=== PATIENT | female | born 1950 | race Caucasian/White ===

== ENCOUNTER 2020-04-22 08:01 | Outpatient (CLI) | payer MEDICARE, SELFPAY | END 2020-04-22 08:02 | disposition home or self-care (01) | LOC: ANHCOVIDVC 08:01 | PROVIDERS: PCP Internal Medicine | DX: Z23 Encounter for immunization (principal) | CPT/HCPCS: 0001A; 91300 ==

== ENCOUNTER 2020-05-13 08:01 | Outpatient (CLI) | payer MEDICARE, SELFPAY | END 2020-05-13 08:02 | disposition home or self-care (01) | LOC: ANHCOVIDVC 08:02 | PROVIDERS: PCP Internal Medicine | DX: Z23 Encounter for immunization (principal) | CPT/HCPCS: 0002A; 91300 ==

== ENCOUNTER 2021-06-15 11:08 | Emergency (ER) | payer MEDICARE, SELFPAY ==
--- NOTE | ~2021-06-15 | XR_ITS ---
EXAMINATION: XR elbow LT min 3V DATE: 06/15/2021 11:39 INDICATION: Generalized left arm pain. TECHNIQUE: Anteroposterior, two oblique and lateral views of the left elbow were obtained. COMPARISON: None. FINDINGS: Alignment is normal. No fracture or joint effusion. Joint spaces are normal. Soft tissues are unremar kable. IMPRESSION: 1. Negative left elbow radiographs. Reviewed, dictated and finalized at location A.
[2021-06-15 11:14] VITALS: BP 173/78; PULSE 60; RESP 16; TEMP 36.8; O2SAT 97
--- NOTE | 2021-06-15 11:28 | ED.GENADULT ---
HPI - General Adult General Chief complaint: Extremity Problem,Nontraumatic Stated complaint: L ARM PAIN Source: patient Mode of arrival: ambulatory Limitations: no limitations History of Present Illness HPI narrative: Pt presents for evaluation of left elbow pain. Pain started night. She woke from sleep with a twinge of pain in the affected area. She states she changed the sheets on her bed earlier that day and is wondering whether this could have caused her pain. She denies precipitated injury otherwise. Wednesday her pain was manageable. She now rates her pain as 7/10 in severity and describes her pain as soreness . Pain is worse with movement. She tried taking a baby aspirin but does not feel this considerably reduced her pain level. She is right hand dominant. No swelling. No paresthesias. No additional complaints or concerns. Related Data Home Medications Medication Instructions Recorded Confirmed aspirin 81 mg tablet,delayed 81 mg PO DAILY 09/16/20 06/15/21 release Allergies Allergy/AdvReac Type Severity Reaction Status Date / Time No Known Allergies Allergy Mild Verified 06/15/21 11:15 Review of Systems Review of Systems: CONSTITUTIONAL: Denies fever, chills, or sweats. EYES: Denies visual changes, redness, or discharge. ENT: Denies rhinorrhea, congestion, sore throat, or otalgia. CARDIOVASCULAR: Denies chest pain, palpitations, or edema. RESPIRATORY: Denies cough or dyspnea. GASTROINTESTINAL: Denies abdominal pain, nausea, vomiting, or diarrhea. GENITOURINARY: Denies dysuria or hematuria. SKIN: Denies rash or itching. MUSCULOSKELETAL: Reports left elbow pain. Denies back pain or myalgia NEUROLOGIC: Denies headache, numbness, dizziness, or weakness. PSYCHIATRIC: Denies anxiety or depression. [facility] Past Medical History Medical History Chronic kidney disease, stage 3 (moderate) Essential (primary) hypertension Hypothyroidism, unspecified Mixed hyperlipidemia Prediabetes Sleep apnea Thyroid disorder Vitamin D deficiency, unspecified Surgical History Surgical History History of cataract surgery Family History Family History Mother Family history of coronary artery disease Father Family history of coronary artery disease Social History Social History Smoking status: Never smoker Second hand tobacco smoke exposure: No Alcohol intake: never Substance use: never Substance use type: does not use 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 HEAD: Normocephalic, atraumatic. EYES: PERRLA and EOMI. ENT: Nares clear, no rhinorrhea or epistaxis. Mucous membranes moist. Oropharynx without tonsillar hypertrophy exudate or other lesions. Bilateral TMs pearly vargas nonbulging NECK: Supple. No adenopathy or masses. No carotid bruits or JVD CHEST: Clear to auscultation. No respiratory distress. No wheezes rales or rhonchi HEART: Regular rate and rhythm. No murmur heard. Normal peripheral pulses. ABDOMEN: Soft, nontender, nondistended, normal active bowel sounds. EXTREMITIES: Normal range of motion of left elbow but movement reproduces pain in left elbow. No edema. Tenderness over left lateral epicondyle. 5/5 hand chief revenue officer strength bilaterally SKIN: Warm, dry, no rash. NEURO: No focal deficits. Alert and oriented x3. PSYCH: Normal mood and affect. Course Course Emergency Course: This is a 70 yr old female here today with complaints of left elbow pain. She is tender over the left lateral
== END 2021-06-15 12:15 | disposition home or self-care (01) ==
PROVIDERS: Emergency Provider Nurse Practitioner; PCP Family Medicine
DX: M77.12 Lateral epicondylitis, left elbow (principal); I12.9 Hypertensive chronic kidney disease with stage 1 through stage 4 chronic kidney disease, or unspecified chronic kidney disease; N18.30 Chronic kidney disease, stage 3 unspecified; E03.9 Hypothyroidism, unspecified; E78.2 Mixed hyperlipidemia; R73.03 Prediabetes; G47.33 Obstructive sleep apnea (adult) (pediatric); Z79.82 Long term (current) use of aspirin; E55.9 Vitamin D deficiency, unspecified
CPT/HCPCS: 73080; 99213; A4565; G0463

== ENCOUNTER 2021-12-31 10:04 | Outpatient (CLI) | payer MEDICARE, SELFPAY ==
[2021-12-31 18:52] LABS: Basophils Absolute Auto 0.1 K/mm3 (0.0-0.1); Basophils Percent Auto 1.1 % (0.2-1.2); Eosinophils Absolute Auto 0.2 K/mm3 (0-0.3); Eosinophils Percent Auto 2.7 % (0-4.4); Hematocrit 36.1 % (37.0-47.0); Hemoglobin 11.6 g/dL (12.0-15.0); Immature Granulocyte Absolute 0.01 K/mm3 (0.00-0.031); Immature Granulocyte Percent A 0.2 % (0-0.5); Lymphocytes Absolute Auto 1.07 K/mm3 (0.9-3.2); Lymphocytes Percent Auto 19.2 % (18.3-44.2); Mean Corpuscular HGB Conc 32.1 g/dl (32-36); Mean Corpuscular Hemoglobin 29.7 pg (26-34); Mean Corpuscular Volume 92.3 fl (80-100); Mean Platelet Volume 10.9 fl (7.4-10.4); Monocytes Absolute Auto 0.6 K/mm3 (0.1-0.6); Monocytes Percent Auto 11.3 % (2.6-8.5); Neutrophils Absolute Auto 3.7 K/mm3 (1.3-6.7); Neutrophils Percent Auto 65.5 % (45.5-73.1); Platelet Count Result 194 k/mm3 (150-375); Red Blood Count 3.91 M/mm3 (4.2-5.4); Red Cell Distribution Width 13.3 % (11.5-14.5); White Blood Count 5.6 K/mm3 (4.5-10.0)
[2021-12-31 19:04] LABS: Hemoglobin A1C 5.7 % (<5.7)
[2021-12-31 19:10] LABS: Alanine Aminotransferase 19 U/L (6-35); Albumin Level 4.4 g/dL (3.5-5.1); Alkaline Phosphatase 74 U/L (38-126); Anion Gap 12 mmol/L (8-16); Aspartate Amino Transferase 25 U/L (14-36); Bilirubin,Total 0.5 mg/dL (0.2-1.3); Blood Urea Nitrogen 21 mg/dL (7-17); Carbon Dioxide 25 mmol/L (22-30); Chloride 102 mmol/L (98-107); Cholesterol 136 mg/dL (0-200); Estimated Glomerular Filt Rate 49; Glucose 104 mg/dL (65-110); HDL Direct 47 mg/dL; Potassium 3.8 mmol/L (3.4-5.0); Sodium 139 mmol/L (137-145); Triglycerides 88 mg/dL (<150); Uric Acid 9.7 mg/dL (2.5-7.5)
[2021-12-31 19:21] LABS: LDL Cholesterol Direct 61 mg/dL
[2021-12-31 19:28] LABS: Vitamin D 25 Hydroxy 55.2 ng/mL
== END 2021-12-31 10:05 | disposition home or self-care (01) ==
LOC: ANHGOSHLAB 10:09
PROVIDERS: PCP Family Medicine; Visit Provider Family Medicine
DX: E78.5 Hyperlipidemia, unspecified (principal); I10 Essential (primary) hypertension; E03.9 Hypothyroidism, unspecified; E55.9 Vitamin D deficiency, unspecified; M10.00 Idiopathic gout, unspecified site; E53.8 Deficiency of other specified B group vitamins; R73.03 Prediabetes
CPT/HCPCS: 36415; 80053; 80061; 82306; 82607; 83036; 84443; 84550; 85025

== ENCOUNTER 2023-12-23 13:40 | Outpatient (CLI) | payer MEDICARE, SELFPAY ==
[2023-12-23 18:38] LABS: Hematocrit 34.9 % (37.0-47.0); Hemoglobin 11.2 g/dL (12.0-15.0); Mean Corpuscular HGB Conc 32.1 g/dl (32-36); Mean Corpuscular Hemoglobin 30.6 pg (26-34); Mean Corpuscular Volume 95.4 fl (80-100); Mean Platelet Volume 10.6 fl (7.4-10.4); Platelet Count Result 212 k/mm3 (150-375); Red Blood Count 3.66 M/mm3 (4.2-5.4); Red Cell Distribution Width 14.2 % (11.5-14.5); White Blood Count 6.4 K/mm3 (4.5-10.0)
[2023-12-23 18:46] LABS: Alanine Aminotransferase 19 U/L (6-35); Alkaline Phosphatase 88 U/L (38-126); Anion Gap 11 mmol/L (4-12); Aspartate Amino Transferase 26 U/L (14-36); Bilirubin,Total 0.7 mg/dL (0.2-1.3); Blood Urea Nitrogen 22 mg/dL (7-17); Calcium 8.9 mg/dL (8.4-10.2); Carbon Dioxide 30 mmol/L (22-30); Chloride 100 mmol/L (98-107); Cholesterol 133 mg/dL (0-200); Estimated Glomerular Filt Rate 54; Glucose 96 mg/dL (65-110); HDL Direct 44 mg/dL; Potassium 3.2 mmol/L (3.4-5.0); Sodium 141 mmol/L (137-145); Triglycerides 80 mg/dL (<150)
[2023-12-23 18:57] LABS: LDL Cholesterol Direct 53 mg/dL
[2023-12-23 19:40] LABS: Vitamin D 25 Hydroxy 50.1 ng/mL
[2023-12-23 22:27] LABS: Hemoglobin A1C 5.7 % (<5.7)
[2023-12-23 23:21] LABS: Free T4 Free Thyroxine Reflex 1.29 ng/dL (0.78-2.19)
[2023-12-24 00:07] LABS: Total Triiodothyronine (T3) 1.26 NG/ML (0.97-1.69)
== END 2023-12-23 13:41 | disposition home or self-care (01) ==
LOC: ANHGOSHLAB 13:41
PROVIDERS: PCP Family Medicine; Visit Provider Family Medicine
DX: E53.8 Deficiency of other specified B group vitamins (principal); E55.9 Vitamin D deficiency, unspecified; E03.9 Hypothyroidism, unspecified; E66.01 Morbid (severe) obesity due to excess calories; E78.2 Mixed hyperlipidemia; R73.03 Prediabetes; I12.9 Hypertensive chronic kidney disease with stage 1 through stage 4 chronic kidney disease, or unspecified chronic kidney disease; N18.30 Chronic kidney disease, stage 3 unspecified
CPT/HCPCS: 36415; 80053; 80061; 82306; 82607; 83036; 84439; 84443; 84480; 85027

== ENCOUNTER 2023-12-28 15:37 | Outpatient (CLI) | payer MEDICARE, SELFPAY ==
[2023-12-28 19:11] LABS: Anion Gap 11 mmol/L (4-12); Blood Urea Nitrogen 22 mg/dL (7-17); Calcium 9.3 mg/dL (8.4-10.2); Carbon Dioxide 30 mmol/L (22-30); Chloride 98 mmol/L (98-107); Estimated Glomerular Filt Rate 49; Glucose 92 mg/dL (65-110); Sodium 139 mmol/L (137-145)
== END 2023-12-28 15:38 | disposition home or self-care (01) ==
LOC: ANHGOSHLAB 15:38
PROVIDERS: PCP Family Medicine; Visit Provider Family Medicine
DX: E87.6 Hypokalemia (principal)
CPT/HCPCS: 36415; 80048

== ENCOUNTER 2024-02-03 13:30 | Outpatient (RCR) | payer MEDICARE, SELFPAY ==
--- NOTE | 2023-11-12 14:43 | STOPEVAL1 ---
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 She then entered [facility] and remained there for about one week where she underwent rehabilitation. She then received three weeks of Home Health therapy focusing on all deficits. Reported Pain Level Pain Score 0: Self Report Assessment ST Clinical Summary COMMUNICATION EVALUATION Patient was seen for a Communication Evaluation after having had a CVA on 09/24/23. She reports that word-finding and speaking have been the most frustrating part of the CVA. She has had prior Speech Therapy through [facility] and through [facility] and reports continued improvement; she is highly motivated to continue to improve. Using the [facility] Adult Language Evaluation and the Coleman Naming Test(BNT), patient exhibited the following impairments: Receptive Language: Most difficulty was observed when given three consecutive body part steps to follow in order; patient repeatedly confused body parts and command response, and command order, and repeatedly asked therapist to repeat the instructions. Expressive Language/Speech: Patient demonstrates that she knows responses to questions and what is expected of her but she either says words incorrectly or chooses wrong words to say when the item is familiar but less common. BNT: 60/64. Speech: Patient exhibits inconsistent sound productions when speaking. For example, she called, February : an-you-are twice and March was pronounced as ay-eb-ri-ar and also as: ay-radha. After she started with these two incorrectly, the other months were produced accurately. Reading Comprehension: Judged to be within normal limits and useful for assisting with intelligible speech. Writing: Writing appears to be similar to speech: word omissions common although she is saying aloud the word she wants to use, she does not always place the smaller function words on paper. Written words are generally spelled correctly. Functional Math: She was asked to find the amounts of two dinners on a menu and add them together; she was two dollars off. When given in writing a start time and an end time and asked to omit one hour of lunch, she was asked to detemine how many hours I worked and was unable to come up with an accurate amount. Plan of Care ST Services Indicated Yes Treatment Frequency and 2x/week x 10 visits Duration These treatments will address the objective and functional deficits as defined above. The patient will be advanced safely and appropriately in order for the patient to progress towards his/her prior level of function. Additional exercises will be introduced and as well as a comprehensive home exercise program upon discharge, if needed, ?to ensure carryover of functional gains achieved in the clinic. This treatment plan has been reviewed and agreement upon by the patient.
--- NOTE | 2023-12-14 13:58 | STOPPROG ---
Assessment and note entered by Lorena Bah, SENIOR PEOPLESOFT DEVELOPER Assessment ST Clinical Summary COMMUNICATION PROGRESS NOTE AND TREATMENT SESSION SUMMARY The patient has been seen for an initial speech therapy session and treatment sessions to address higher-level receptive/expressive language and speech skills. Patient reports that she feels having direct Speech Therapy has helped very much. The patient reports that she feels that trying to express my words in sentences, what I am trying to , in a conserv...conversation, I have to talk slowly, that I have to get the words that I want to state out without having to think: how do I want to state that word. She indicated that she feels that when we address specific words and tasks to address responding to questions/word -finding, it challenges her to thnk through her words and how to express them. She continues to report significant difficulty saying, ventriliquism and this is frustrating to her. Examples today of speech/language errors: --Naming less common but familiar pictured items: Overall 50% acc. independently, immediately (5/10 items), increase to 80% acc (increase of 3/10 items) given her own self-cueing using sentence carrier statement, and for the last two, sound errors/literal paraphasias: myraquid for pyramid and sunnel for funnel. On both occasions, patient required therapist phonemic and visual cue (therapist using lingual/labial placement) in order to correct her productions. --Responding to questions concerning written paragraph stories: ray for vargas, self-cued for vargas. Stated dis-troyed instead of discolored, but corrected. Stated a phone had a built in entering machine instead of built-in answering machine. When asked to state the arcos of the phone, she stated: Seventeen, no, 7, no. 79... dollars and fif...no, nine, no eight, no, 95...95 cents. Patient will continue in direct Speech Therapy twice weekly for an additional 8 visits to continue to address higher-level comprehension and word-finding tasks along with tasks to continue to assist with speech intelligibility. Patient is motivated to continue and supported by a friend who assists with cueing patient and helping her work through incorrect word and sound productions. Goals assessed with new goals added. Plan of Care Interventions Treatment of Speech,Treatment of Language ST Services Indicated Yes Treatment Frequency and 2x 8 visits Duration These treatments will address the objective and functional deficits as defined above. The patient will be advanced safely and appropriately in order for the patient to progress towards his/her prior level of function. Additional exercises will be introduced and as well as a comprehensive home exercise program upon discharge, if needed, ?to ensure carryover of functional gains achieved in the clinic. This treatment plan has been reviewed and agreement upon by the patient.
--- NOTE | 2023-12-16 10:40 | PCSTNOTE ---
The patient treatment was not able to be completed on 12/16/23 due to patient and seasonal delivery driver, Shani, forgetting that her appointment was for 10:00 today even though we had discussed it last session and Shani looked at her calendar while we were on the phone and she stated it was clearly marked for 10:00. Will plan to continue treatment per plan of care by adding this visit to the end of her current allotted visits.
--- NOTE | 2024-01-14 11:20 | PCSTNOTE ---
The patient treatment was not able to be completed on 01/13 due to no show/no call. Patient was responsible to drive herself today rather than coming with airport driver/friend, Shani, and most likely she forgot. Will plan to continue treatment per plan of care. She is expected Wednesday at 12:30.
--- NOTE | 2024-01-14 11:55 | STOPPROG ---
Assessment and note entered by Lorena Bah, STILL TENDER Assessment ST Clinical Summary PROGRESS NOTE AND TREATMENT SUMMARY Patient reported that she feels her speech is not progressing as she had hoped. She reported that she was participating in an auction last night, and she had to think of a dollar amount to bid. She says that the person doing the auction thought she said, eleven, when her intention was seven dollars, and they had to repair the amount. She stated that someone bid me out. Her friend, who accompanies her said that, Most of the time you can speak. Patient admitted that when she is under pressure, she has significantly more difficulty. Both patient and friend report that patient's speech/language is 85% better, that the struggle to get the words out is not as much as it used to be. Patient and friend also expressed that patient lost her a month ago and that on the days she has to deal with her 's paperwork and expenses, etc. the friend and this therapist both notice a reduction in her speech skills. Patient was given short 4 paragraph story and requested to read it aloud. She exhibited difficulty saying 10 multi-syllabic words, improved when therapist wrote out each syllable separately from the next (with a space in between). By end of story, she was able to produce each word accurately after practice. Patient then responded to questions with 90% accuracy based on the story she had read. She will be given additional stories for homework however receptively, she does not require additional assistance with this. Patient's goals were reviewed and progress has been made in all areas including producing multi- syllabic words with correct speech sound precision and sequencing, functional math, and writing cohesive notes. Patient continues to require skilled services to improve speech intelligibility, speech sound precision, functional math for money, and for writing coherent, cohesive notes. She will be seen twice weekly for an additional eight visits. Plan of Care Interventions Treatment of Speech,Treatment of Language ST Services Indicated Yes Treatment Frequency and 2xweekly/8 visits Duration These treatments will address the objective and functional deficits as defined above. The patient will be advanced safely and appropriately in order for the patient to progress towards his/her prior level of function. Additional exercises will be introduced and as well as a comprehensive home exercise program upon discharge, if needed, ?to ensure carryover of functional gains achieved in the clinic. This treatment plan has been reviewed and agreement upon by the patient.
--- NOTE | 2024-01-31 14:58 | PCSTNOTE ---
Patient did not show up for scheduled appointment this date or call to cancel. Therapist will contact patient.
--- NOTE | 2024-01-31 15:17 | PCSTNOTE ---
Patient had cancelled today's visit ahead of time but she was not removed from the schedule as expected. She did not miss this visit on purpose.
--- NOTE | 2024-02-07 13:08 | PCSTNOTE ---
Patient's V number is being discontinued. Continue chart with new V#[id number].
== END 2024-02-07 11:17 | disposition home or self-care (01) ==
LOC: ANHST 13:30
PROVIDERS: PCP Family Medicine; Visit Provider Family Medicine
DX: I69.320 Aphasia following cerebral infarction (principal)
CPT/HCPCS: 92507; 92523

== ENCOUNTER 2024-04-10 10:14 | Outpatient (CLI) | payer MEDICARE, SELFPAY ==
--- OUTSIDE RECORDS SUMMARY | 2024-04-10 13:10 | XMS_ITS | Referral Summary ---
Author Organization [facility] Address [address] [place] [address] Care Team Providers Care Cad Cam Programmer Name Role Phone Mono Felipe MD Primary Care Provider Source Comments [facility],non-owned Affiliates and Associated Physician Practices is amultiple site organization consisting of ambulatory clinics and hospital sitesin [place], [place] and [place]. This disclosure is being madepursuant to the Care Everywhere program and may not contain all information available regarding this patient. Last updated 17.[facility] Encounters Date Type Department Care Team Description 04/06/2024 1:10 AM HEAD HOST/HOSTESS Clinical Support [facility] - Cardiology [address] [facility], [address] [phone] Acute ischemic left MCA stroke (HCC) 03/02/2024 1:10 AM HEAD HOST/HOSTESS Clinical Support [facility] [address] [facility], [address] [phone] Acute ischemic left MCA stroke (HCC) 01/27/2024 1:10 AM HEAD HOST/HOSTESS Clinical Support [facility] Cardiology [address] [facility], [address] [phone] Acute ischemic left MCA stroke (HCC) from Last 3 Months Allergies No known active allergies Medications * Be aware that medications may not be up to date on this document. Alwaysverify current medications with the patient. Medication Sig Dispensed Refills Start Date End Date Status cyanocobalamin (Vitamin B-12) 1000 MCG tablet Take 1 (one) tablet by mouth once daily Active escitalopram (Lexapro) 5 MG tablet Take 1 (one) tablet by mouth once daily Active Vitamin D3 (Cholecalciferol) 50 MCG (2000 UT) capsule Take 1 (one) capsule by mouth once daily Active levothyroxine (Synthroid) 50 MCG tablet Take 1 (one) tablet by mouth daily before breakfast Active allopurinol (Zyloprim) 300 MG tablet Take 1 (one) tablet by mouth once daily Active amLODIPine (Norvasc) 10 MG tablet Take 1 (one) tablet by mouth once daily Active olmesartan-hydroCHL OROthiazide (Benicar HCT) 40-25 MG tablet Take 1 (one) tablet by mouth once daily Active pantoprazole EC (Protonix) 20 MG tablet Take 1 (one) tablet by mouth once daily Active carvedilol (Coreg) 25 MG tablet Take 1 (one) tablet by mouth 2 times daily with morning and evening meal Active aspirin (Aspirin) 81 MG chew tablet CHEW AND SWALLOW 1 TABLET BY MOUTH ONCE DAILY 60 tablet 09/30/2023 09/29/2024 Active atorvastatin (Lipitor) 40 MG tablet TAKE ONE TABLET BY MOUTH AT BEDTIME 60 tablet 09/30/2023 09/29/2024 Active losartan (Cozaar) 100 MG tablet TAKE ONE TABLET BY MOUTH ONCE DAILY 60 tablet 09/30/2023 09/29/2024 Active sulfamethoxazole-tr imethoprim (Bactrim DS; Septra DS) 800-160 MG tablet TAKE ONE TABLET BY MOUTH EVERY 12 HOURS FOR 1 DAY 2 tablet 09/30/2023 09/29/2024 Active sennosides (Senokot) 8.6 MG tablet TAKE ONE TABLET BY MOUTH ONCE DAILY 30 tablet 09/30/2023 09/29/2024 Active polyethylene glycol 3350 (Miralax) 17 GM/SCOOP powder MIX AND TAKE 1 CAPFUL (17 GM) BY MOUTH ONCE DAILY 238 g 2 09/30/2023 09/29/2024 Active Active Problems Problem Noted Date Diagnosed Date Essential hypertension 12/06/2023 Mixed hyperlipidemia 12/06/2023 Acute ischemic left MCA stroke 09/24/2023 Transient alteration of awareness 09/24/2023 Aphasia 09/24/2023 Social History Tobacco Use Types Packs/Day Years Used Date Smoking Tobacco: Never Smokeless Tobacco: Never Tobacco Cessation:Counseling Given: Not Answered AUDIT-C Answer Date Recorded Q1: How often do you have a drink containing alcohol? Never 09/25/2023 Q2: How many drinks containi ng alcohol do you have on a typical day when you are drinking? Patient does not drink Q3: How often do you have si x or more drinks on one occasion? Never 09/25/2023 Overall Financial Resource Strain (CARDIA) Answe r Date Recorded How hard is it for you to pa y for the very basics like food, housing, medical care, and heating? Not very hard 09/27/2023 PHQ-2 Answer Date Recorded Patient Health Questionnaire-2 Score 0 09/30/2023 [facility] - Occupational Stress Questionnaire Answer Date Recorded Do you feel stress - tense, restless, nervous, or anxious, or unable to sleep at night because your mind is troubled all the time - these days? Not at all 09/27/2023 Hunger Vital Sign Answer Date Recorded Within the past 12 months, y ou worried that your food would run out before you got the money to buy more. Never true 09/27/19 24 Within the past 12 months, t he food you bought just didn't last and you didn't have money to get more. Never true 09/27/2023 PRAPARE - Transportation Answer Date Re corded In the past 12 months, has l ack of transportation kept you from medical appointments or from getting medications? No 06/2023 In the past 12 months, has l ack of transportation kept you from meetings, work, or from getting things needed for daily living? No 09/27/2023 Housing Stability Vital Sign Answer Ron e Recorded In the last 12 months, was t here a time when you were not able to pay the mortgage or rent on time? No 09/27/2023 In the last 12 months, how many places have you lived? 1 09/27/2023 In the last 12 months, was t here a time when you did not have a steady place to sleep or slept in a [facility] (including now)? No 09/27/2023 Sex and Gender Information Value Date Recorded Sex Assigned at Not on file Gender Identity Not on file Sexual Orientation Not on file Last Filed Vital Signs Vital Sign Reading Time Taken Comments Blood Pressure 128/64 12/06/2023 1:46 PM CDT Pulse 60 12/06/2023 1:46 PM CDT Temperature 36.7 C (98.1 F) 09/30/2023 12:07 PM CDT Respiratory Rate 14 11/11/2023 10:01 AM CDT Oxygen Saturation 97% 12/06/2023 1:46 PM CDT Inhaled Oxygen Concentration - - Weight 147.4 kg (325 lb) 12/06/2023 1:46 PM CDT Height 167.6 cm (5' 6 ) 12/06/2023 1:46 PM CDT Body Mass Index 52.46 12/06/2023 1:46 PM CDT Functional Status Functional Status Response Date of Assess ment Is person deaf or have serious hearing difficult y? No 09/25/2023 Is person blind or have serious difficulty seein g? No 09/25/2023 Does person have serious dif ficulty walking/climbing stairs? Yes 09/25/2023 Does person have difficulty dressing/bathing? Ye s 09/25/2023 Does person have difficulty doing errands alone? Yes 09/25/2023 Cognitive Status Response Date of Assessm ent Does person have difficulty concentrating/remembering/making decisions? Yes 09/25/2023 Plan of Treatment Upcoming Encounters Date Type Department Care Team (Late st Contact Info) Description 05/10/2024 10:00 AM CDT Office Visit [facility] - Neurology [address] [facility], [place] [address] Isamar Roberts PA-C [address] [facility] [address] [place] [address] 05/11/2024 1:10 AM CDT Clinical Support [facility] - Cardiology [address] [facility], [address] [phone] 06/15/2024 1:10 AM CDT Clinical Support [facility] - Cardiology [address] [facility], [address] [phone] 07/20/2024 1:10 AM CDT Clinical Support [facility] - Cardiology [address] [facility], [address] [address] 08/24/2024 1:10 AM CDT Clinical Support [facility] - Cardiology [address], [place] [address] [place] [phone] 09/28/2024 1:10 AM CDT Clinical Support [facility] - Cardiology [address], [place] [address] [place] [phone] 11/02/2024 1:10 AM CDT Clinical Support [facility] - Cardiology [address], [place] [address] [place] [phone] Medical Devices Implanted Type Area Cafeteria Attendant Device Identifier Shelf Expiration Date Model / Serial / Lot Sys Crd Mntr Rvl Linq Ii - [id number] Implanted:Qty: 1 on 09/29/2023 by Kathy Richmond MD at [facility] [id number] 02/09/2025 [id number] SYS / [id number] / [id number] 3 Description:Loop Implant R-wave: 0.45 Procedures Procedure Name Priority Date/Time Associated Diagnosis Comments CARDIAC PROCEDURE ORDER 04/04/2024 [place] ILR DEVICE INTERROGAT REMOTE Routine 03/12/2024 9:14 AM HEAD HOST/HOSTESS Acute ischemic left MCA stroke (HCC) [place] ILR DEVICE INTERROGAT REMOTE Routine 02/13/2024 9:15 AM HEAD HOST/HOSTESS Acute ischemic left MCA stroke (HCC) CARDIAC PROCEDURE ORDER 01/25/2024 from Last 3 Months Results * CARDIAC PROCEDURE ORDER (04/04/2024) Only the most recent of2 resultswithin the time period is included. Narrative 04/04/2024 Ordered by an unspecified provider. Scanned Document CARDIAC SERVICES ORD ERABLES * [place] ILR DEVICE INTERROGAT REMOTE (03/12/2024 9:14 AM HEAD HOST/HOSTESS) Braulio Regalado MD - 03/12/2024 9:14 AM HEAD HOST/HOSTESS Braulio Saxena MD 03/12/2024 9:14 AM Dear Gudelia Carlton, I reviewed the remote interrogation of your loop recorder. Your device's sensing is appropriate and stable. During this most recent monitored period ending on 02/29/2024 your atrial fibrillation/tachycardia burden was 0% and you had no significant arrhythmias. Device function is normal, no programming changes are required, and no medications will need to be changed. Please call our offices if you have any further questions. Sincerely, Braulio Saxena 03/12/2024 Braulio Saxena MD PROCEDURE/MINOR SURG ICAL ORDERABLES * [place] ILR DEVICE INTERROGAT REMOTE (02/13/2024 9:15 AM HEAD HOST/HOSTESS) Braulio Regalado MD - 02/13/2024 9:15 AM HEAD HOST/HOSTESS Braulio Saxena MD 02/13/2024 9:15 AM Dear Gudelia Carlton, I reviewed the remote interrogation of your loop recorder. Your device's sensing is appropriate and stable. During this most recent monitored period ending on 01/25/2024 your atrial fibrillation/tachycardia burden was 0% and you had no significant arrhythmias. Device function is normal, no programming changes are required, and no medications will need to be changed. Please call our offices if you have any further questions. Sincerely, Braulio Cha Mar 02/13/2024 Braulio Saxena MD PROCEDURE/MINOR SURG ICAL ORDERABLES from Last 3 Months Advance Directives * Full Code (Latest Code Status on File) Date Activated Date Inactivated Comments 09/24/2023 8:34 PM 09/30/2023 4:13 PM Care Teams Cad Cam Programmer Relationship Specialty Start Date End Date Mono Felipe MD [facility] [facility] [place] [address] [place] [phone] PCP - General Family Medicine 11/10/23
--- OUTSIDE RECORDS SUMMARY | 2024-04-10 13:10 | XMS_ITS | Clinical Summary ---
Author Organization [facility] Address [address] [address] Care Team Providers Care General Education Professor Name Role Phone Mono Felipe MD Primary Care Provider Source Comments [facility],non-owned Affiliates and Associated Physician Practices is amultiple site organization consisting of ambulatory clinics and hospital sitesin [place], [place], [place] and [place]. This disclosure is being madepursuant to the Care Everywhere program and may not contain all information available regarding this patient. Last updated 17.[employer] [facility] Allergies No known active allergies Medications * [...] Transient alteration of awareness 09/24/2023 Aphasia 09/24/2023 Encounters Date Type Department Care Team Description 04/06/2024 1:10 AM IT APPLICATION ADMINISTRATOR Clinical Support [facility] - Cardiology [address] [place] [phone] Acute ischemic left MCA stroke (HCC) 03/02/2024 1:10 AM IT APPLICATION ADMINISTRATOR Clinical Support [facility] - Cardiology [address] [place] [phone] Acute ischemic left MCA stroke (HCC) 01/27/2024 1:10 AM [facility] Clinical Support [facility] - Cardiology [address] [place] [phone] Acute ischemic left MCA stroke (HCC) from Last 3 Months Social History Tobacco Use Types Packs/Day Years [...] Recorded Patient Health Questionnaire-2 Score 0 09/30/2023 [facility] Occup[facility] Health - Occupational Stress [...] place to sleep or slept in a [place] [facility] [place] (including now)? No 09/27/2023 Sex and Gender [...] Mass Index 52.46 12/06/2023 1:46 PM CDT Plan of Treatment Upcoming Encounters Date Type Department Care Team (Late st Contact Info) Description 05/10/2024 10:00 AM CDT Office Visit [facility] - Neurology [address] [facility], [place] [address] Isamar Roberts PA-C [address] [facility] [address] [place] [address] 05/11/2024 1:10 AM CDT Clinical Support [facility] - Cardiology [address], [address] [phone] 06/15/2024 1:10 AM CDT Clinical Support [facility] - Cardiology [address], [address] [phone] 07/20/2024 1:10 AM CDT Clinical Support [facility] - Cardiology [address], [address] [phone] 08/24/2024 1:10 AM CDT Clinical Support [facility] - Cardiology [address], [address] [phone] 09/28/2024 1:10 AM CDT Clinical Support [facility] - Cardiology [address], [address] [phone] 11/02/2024 1:10 AM CDT Clinical Support [facility] - Cardiology [address], [address] [place] [address] Health Maintenance Due Date Last Done Comments BONE DENSITY TESTING 1950 COLOGUARD (AGES 45-75) - COL ON CA SCREENING 1949 COLON MONITORING 1949 COLONOSCOPY - COLON CA SCREENING 1949 CT COLONOGRAPHY - COLON CA SCREENING 1949 Colorectal Cancer Screening 1949 FIT - COLON CA SCREENING 1949 FLEX SIG - COLON CA SCREENING 1949 MAMMOGRAM 1949 HEPATITIS C SCREENING 11/08/1967 DTAP/TDAP/TD VACCINES (1 - Tdap) 1968 PNEUMOCOCCAL VACCINE 50+ (1 of 1 - PCV) 11/13/1999 ZOSTER VACCINE (1 of 2) 11/13/1999 Respiratory Syncytial Virus (RSV) Vaccine Pt: or over 60 yrs (1 - Risk 60-74 years 1-dose series) 2009 COVID-19 VACCINE (2023-2 5 season) 2023 INFLUENZA VACCINE (#1) 2023 DEPRESSION SCREENING 02/23/2024 09/24/2023 MEDICARE AWV CALENDAR YEAR 2024 HEPATITIS B VACCINE Aged Out No longe r eligible based on patient's age to complete this topic HIB VACCINE Aged Out No longer eligi ble based on patient's age to complete this topic HPV VACCINE Aged Out No longer eligi ble based on patient's age to complete this topic MENINGOCOCCAL (Group B) VACCINE Aged Out No longer eligible based on patient's age to complete this topic MENINGOCOCCAL VACCINE Aged Out No dana sandra eligible based on patient's age to complete this topic Medical Devices Implanted Type Area Mold Stripper Device Identifier Shelf Expiration Date Model / Serial / Lot Sys Crd Mntr Rvl Linq Ii - [id number] Implanted:Qty: 1 on 09/29/2023 by Kathy Richmond MD at [facility] [id number] 02/09/2025 LNQ22 SYS / [id number] / [id number] 3 Description:Loop Implant R-wave: 0.45 Procedures Procedure Name Priority Date/Time Associated Diagnosis Comments CARDIAC PROCEDURE ORDER 04/04/2024 [place] ILR DEVICE INTERROGAT REMOTE Routine 03/12/2024 9:14 AM IT APPLICATION ADMINISTRATOR Acute ischemic left MCA stroke (HCC) [place] ILR DEVICE INTERROGAT REMOTE Routine 02/13/2024 9:15 AM IT APPLICATION ADMINISTRATOR Acute ischemic left MCA stroke (HCC) CARDIAC PROCEDURE ORDER 01/25/2024 from Last 3 Months Results * CARDIAC PROCEDURE ORDER (04/04/2024) Only the most recent of2 resultswithin the time period is included. Narrative 04/04/2024 Ordered by an unspecified provider. Scanned Document CARDIAC SERVICES ORD ERABLES * [place] ILR DEVICE INTERROGAT REMOTE (03/12/2024 9:14 AM IT APPLICATION ADMINISTRATOR) Narrative Braulio Saxena MD - 03/12/2024 9:14 AM IT APPLICATION ADMINISTRATOR Braulio Saxena MD 03/12/2024 9:14 AM Dear [...] Saxena MD PROCEDURE/MINOR SURG ICAL ORDERABLES * [place] ILR DEVICE INTERROGAT REMOTE (02/13/2024 9:15 AM IT APPLICATION ADMINISTRATOR) Narrative Braulio Saxena MD - 02/13/2024 9:15 AM IT APPLICATION ADMINISTRATOR Braulio Saxena MD 02/13/2024 9:15 AM Dear [...] have any further questions. Sincerely, Braulio Saxena 02/13/2024 Braulio Saxena MD PROCEDURE/MINOR SURG ICAL ORDERABLES from Last 3 Months Advance Directives * Full Code (Latest Code Status on File) Date Activated Date Inactivated Comments 09/24/2023 8:34 PM 09/30/2023 4:13 PM Care Teams General Education Professor Relationship Specialty Start Date End Date Mono Felipe MD [address] [facility] [address] [place] [address] PCP - General Family Medicine 11/10/23
--- OUTSIDE RECORDS SUMMARY | 2024-04-10 13:10 | XMS_ITS | Clinical Summary ---
Author Organization [facility] Address [address] [place] [address] Care Team Providers Care P D Driver Name Role Phone Unavailable Primary Care Provider Unavailabl e Social History Tobacco Use Types Packs/Day Years Used Date Smoking Tobacco: Never Assessed Comments Unknown Sex and Gender Information Value Date Recorded Sex Assigned at Not on file Legal Sex Female 7:54 PM CDT Gender Identity Not on file Sexual Orientation Not on file Plan of Treatment Health Maintenance Due Date Last Done Comments Colorectal Cancer Screening Colonoscopy (10 Years) 1949 Hepatitis C 11/13/1967 DTaP, Tdap and Td Vaccines ( 1 - Tdap) 1968 Mammogram Screening 1989 Zoster Vaccines (1 of 2) 11/13/1999 Dexa Scan (General) 2014 Pneumococcal Vaccine: 65+ Ye ars (1 of 1 - PCV) 2014 COVID-19 Vaccine (2023-2 5 season) 2023 Influenza Adult (#1) 2023 RSV Immunization or 60+ Years (1 - 1-dose 75+ series) 2024 Meningococcal B Vaccine Aged Out No l onger eligible based on patient's age to complete this topic Meningococcal Vaccine Aged Out No dana sandra eligible based on patient's age to complete this topic RSV Immunizations Under 20 Months Aged Out No longer eligible based on patient's age to complete this topic
--- OUTSIDE RECORDS SUMMARY | 2024-04-10 13:10 | XMS_ITS | Clinical Summary ---
Author Organization [facility] Address [address] [facility] [facility] [address] [place]: Monica Prelude ADT [place] [address] Care Team Providers Care Drafter Civil Name Role Phone Unavailable Primary Care Provider Unavailabl e Medications methylPREDNISol one (MEDROL DOSPACK) 4 mg Tablets, Dose Pack TAKE DIRECTED ON PACKAGE. TAKE WITH FOOD. 21 Tablet 10/06/2021 9:26 AM CDT 2 Active allopurinoL (ZYLOPRIM) 300 mg tablet Take 1 Tablet (300 mg) by mouth daily. 90 Tablet 1 09/23/2022 5:08 PM CDT 3 Active cholecalciferol , Vitamin D3, 50 mcg (2,000 unit) Tablet Take 1 Tablet (2,000 Units) by mouth daily. 90 Tablet 2 04/23/2023 2:25 PM CONTENT ASSISTANT 3 Active carvediloL (COREG) 25 mg tablet Take 0.5 Tablets (12.5 mg) by mouth every 12 hours with a meal/food. 90 Tablet 1 04/23/2023 2:25 PM CONTENT ASSISTANT 3 Active levothyroxine 50 mcg tablet Take 1 Tablet (50 mcg) by mouth daily. 90 Tablet 1 04/23/2023 2:25 PM CONTENT ASSISTANT 3 Active ezetimibe-simva statin (VYTORIN) 10-40 mg tablet Take 1 Tablet by mouth daily. 30 Tablet 04/23/2023 2:25 PM CONTENT ASSISTANT 3 Active omeprazole (PriLOSEC) 40 mg Capsule, Delayed Release(E.C.) Take 1 Capsule (40 mg) by mouth daily in the morning, 30 minutes before morning meal 90 Capsule 4 07/30/2023 3:16 PM CDT 4 Active carvediloL (COREG) 25 mg tablet Take 0.5 Tablets (12.5 mg) by mouth every 12 hours. Must administer with meal/food 90 Tablet 1 11/30/2023 12:18 PM CDT 4 Active cholecalciferol , Vitamin D3, 50 mcg (2,000 unit) Tablet Take 1 Tablet (2,000 Units) by mouth daily. 90 Tablet 2 02/24/2024 4:32 PM CONTENT ASSISTANT 4 Active cyanocobalamin (VITAMIN B-12) 1,000 mcg Tablet, Sublingual Dissolve 1 tablet by mouth once daily 90 Tablet 1 4 Active ezetimibe-simva statin (VYTORIN) 10-40 mg tablet Take 1 Tablet by mouth daily. Due for an appointment. Last refill until seen. 30 Tablet 07/23/2023 3:34 PM CDT 4 Active levothyroxine 50 mcg tablet Take 1 Tablet (50 mcg) by mouth daily. 90 Tablet 1 12/31/2023 1:00 PM CONTENT ASSISTANT 4 Active aspirin (LEILA CHEWABLE) 81 mg Tablet, Chewable Take 1 Tablet (81 mg) by mouth daily. 30 Tablet 10/08/2023 3:51 PM CDT 4 Active atorvastatin (LIPITOR) 40 mg tablet Take 1 Tablet (40 mg) by mouth daily at bedtime. 30 Tablet 4 Active losartan (COZAAR) 100 mg tablet Take 1 Tablet (100 mg) by mouth daily. 30 Tablet 4 Active sennosides (SENOKOT) 8.6 mg tablet Take 1 Tablet (8.6 mg) by mouth daily. 30 Tablet 4 Active mirtazapine (REMERON) 15 mg tablet Take 0.5 Tablets (7.5 mg) by mouth daily at bedtime. 15 Tablet 10/08/2023 3:51 PM CDT 4 Active pantoprazole (PROTONIX) 40 mg Tablet, Delayed Release (E.C.) Take 1 Tablet (40 mg) by mouth daily. 30 Tablet 10/08/2023 3:51 PM CDT 4 Active polyethylene glycol (MIRALAX) 17 gram Powder in Packet Drink 1 Packet (17 Grams) by mouth daily as directed 30 Each 4 Active amLODIPine (NORVASC) 10 mg tablet Take 1 Tablet (10 mg) by mouth daily. 90 Tablet 1 01/28/2024 3:25 PM CONTENT ASSISTANT 4 Active olmesartan-hydr oCHLOROthiazide (BENICAR-HCT) 40-25 mg tablet Take 1 Tablet by mouth daily. 90 Tablet 1 03/21/2024 4:54 PM CONTENT ASSISTANT 4 Active carvediloL (COREG) 12.5 mg tablet Take one tablet (12.5 mg) orally every 12 hours; must administer with a meal/food 180 Tablet 2 02/24/2024 4:32 PM CONTENT ASSISTANT 4 Active escitalopram oxalate (LEXAPRO) 5 mg tablet Take one tablet (5 mg) orally daily 90 Tablet 1 4 Active potassium chloride (KLOR-CON) 10 mEq Extended Release tablet Take 1 Tablet (10 mEq) by mouth daily. 90 Tablet 12/30/2023 3:32 PM CONTENT ASSISTANT 4 Active pantoprazole (PROTONIX) 20 mg Tablet, Delayed Release (E.C.) Take 1 Tablet (20 mg) by mouth daily in the morning. 90 Tablet 1 01/28/2024 3:25 PM CONTENT ASSISTANT 4 Active atorvastatin (LIPITOR) 40 mg tablet Take 1 Tablet (40 mg) by mouth daily at bedtime. 100 Tablet 1 4 Active allopurinoL (ZYLOPRIM) 300 mg tablet Take 1 Tablet (300 mg) by mouth daily. 90 Tablet 1 02/24/2024 4:32 PM CONTENT ASSISTANT 5 Active Social History Tobacco Use Types Packs/Day Years Used Date Smoking Tobacco: Never Assessed Comments Unknown Sex and Gender Information Value Date Recorded Sex Assigned at Not on file Legal Sex Female 3:27 PM CDT Gender Identity Not on file Sexual Orientation Not on file Plan of Treatment Health Maintenance Due Date Last Done Comments DTAP/TDAP/TD VACCINES (1 - Tdap) 1968 BREAST CANCER SCREENING 1989 COLORECTAL SCREENING 1994 Colorectal Cancer Screening 1994 FIT-DNA Q 3 years 1994 FIT/FOBT Q 1 year 1994 Flex Sig/CT Colonography Q 5 years 1994 PNEUMOCOCCAL VACCINE 65+ YEARS (1 of 1 - PCV) 11/13/19 00 ZOSTER VACCINE (1 of 2) 11/13/1999 OSTEOPOROSIS SCREENING 2014 INFLUENZA VACCINE (#1) 2023 RSV VACCINE (60+ or ) (1 - 1-dose 75+ series) 2024 Insurance RX [employer] Medicare Part D RX [employer] (INTERNAL) [facility]
--- OUTSIDE RECORDS SUMMARY | 2024-04-10 13:10 | XMS_ITS | Clinical Summary ---
Author Organization [facility] Address [address] [facility] [place] [address] Care Team Providers Care Assistant Restaurant General Manager Name Role Phone Unavailable Primary Care Provider Unavailabl e Social History Tobacco Use Types Packs/Day Years Used Date Smoking Tobacco: Never Assessed Comments Unknown Sex and Gender Information Value Date Recorded Sex Assigned at Not on file Legal Sex Female 3:15 PM CDT Gender Identity Not on file Sexual Orientation Not on file Plan of Treatment Upcoming Encounters Date Type Department Care Team (Late st Contact Info) Description 06/22/2024 10:30 AM CDT Office Visit [facility] - Cardiology - [place] [place] [address] Fermin Chappell MD [address] [facility] [address] [address] Health Maintenance Due Date Last Done Comments DEXA Bone Density 1950 Hepatitis C Virus (HCV) Screening 1950 TdaP Immunization 1950 Colonoscopy 1994 Colorectal Cancer Screening 1994 Cologuard 11/13/1999 Immunochemical Fecal Occult Blood 11/13/1999 Mammogram 11/13/1999 Zoster Immunization (1 of 2) 11/13/1999 Influenza Immunization (#1) 10/24/202311/22, 01/23/2022, 12/06/2020, Additional history exists SARS-COV-2 Immunization ( season) 2023 12/03/2022, 03/05/2022, 05/29/2021, Additional history exists Respiratory Syncytial Virus (RSV) Immunization (Adult) (1 - -dose 75+ series) 2024 Pneumococcal Immunization (50+ years) Completed 10/21/2023, 11/26/2015 Hepatitis B Immunization Aged Out No longer eligible based on patient's age to complete this topic Meningococcal Immunization (ACWY) Aged Out No longer eligible based on patient's age to complete this topic Rotavirus Immunization Aged Out No lo nger eligible based on patient's age to complete this topic
--- OUTSIDE RECORDS SUMMARY | 2024-04-10 13:11 | XMS_ITS | Patient Health Summary ---
Author Organization [facility] Address [address] [place] [address] Care Team Providers Care Corn Popper Name Role Phone Mono Felipe MD Primary Care Provider Note from [facility],non-owned Affiliates and Associated Physician Practices is amultiple site organization consisting of ambulatory clinics and hospital sitesin [place] and [place]. This disclosure is being madepursuant to the Care Everywhere program and may not contain all information available regarding this patient. Last updated 17.[facility] Allergies No known active allergies Medications * Be aware that medications may not be up to date on this document. Alwaysverify current medications with the patient. * cyanocobalamin (Vitamin B-12) 1000 MCG tablet Take 1 (one) tablet by mouth once daily * escitalopram (Lexapro) 5 MG tablet Take 1 (one) tablet by mouth once daily * Vitamin D3 (Cholecalciferol) 50 MCG (2000 UT) capsule Take 1 (one) capsule by mouth once daily * levothyroxine (Synthroid) 50 MCG tablet Take 1 (one) tablet by mouth daily before breakfast * allopurinol (Zyloprim) 300 MG tablet Take 1 (one) tablet by mouth once daily * amLODIPine (Norvasc) 10 MG tablet Take 1 (one) tablet by mouth once daily * olmesartan-hydroCHLOROthiazide (Benicar HCT) 40-25 MG tablet Take 1 (one) tablet by mouth once daily * pantoprazole EC (Protonix) 20 MG tablet Take 1 (one) tablet by mouth once daily * carvedilol (Coreg) 25 MG tablet Take 1 (one) tablet by mouth 2 times daily with morning and evening meal * aspirin (Aspirin) 81 MG chew tablet(Started 09/30/2023) CHEW AND SWALLOW 1 TABLET BY MOUTH ONCE DAILY * atorvastatin (Lipitor) 40 MG tablet(Started 09/30/2023) TAKE ONE TABLET BY MOUTH AT BEDTIME * losartan (Cozaar) 100 MG tablet(Started 09/30/2023) TAKE ONE TABLET BY MOUTH ONCE DAILY * sulfamethoxazole-trimethoprim (Bactrim DS; Septra DS) 800-160 MG tablet (Started 09/30/2023) TAKE ONE TABLET BY MOUTH EVERY 12 HOURS FOR 1 DAY * sennosides (Senokot) 8.6 MG tablet(Started 09/30/2023) TAKE ONE TABLET BY MOUTH ONCE DAILY * polyethylene glycol 3350 (Miralax) 17 GM/SCOOP powder(Started 09/30/2023) MIX AND TAKE 1 CAPFUL (17 GM) BY MOUTH ONCE DAILY 3 refills by 09/29/2024 Active Problems Problem Noted Date Diagnosed Date [...] Recorded Patient Health Questionnaire-2 Score 0 09/30/2023 [facility] - Occupational Stress [...] place to sleep or slept in a half-way (including now)? No 09/27/2023 Sex and Gender [...] Mass Index 52.46 12/06/2023 1:46 PM CDT Medical Devices Implanted Type Area Education Research Analyst Device Identifier Shelf Expiration Date Model / Serial / Lot Sys Crd Mntr Rvl Linq Ii - [id number] Implanted:Qty: 1 on 09/29/2023 by Nga Richmond MD at [facility] [id number] 02/09/2025 LNQ22 SYS / [id number] / [id number] Description:Loop Implant R-wave: 0.45 Procedures * CARDIAC PROCEDURE ORDER(Performed 04/04/2024) * RI ILR DEVICE INTERROGAT REMOTE(Performed 03/12/2024) Performed for Acute ischemic left MCA stroke (HCC) * RI ILR DEVICE INTERROGAT REMOTE(Performed 02/13/2024) Performed for Acute ischemic left MCA stroke (HCC) * CARDIAC PROCEDURE ORDER(Performed 01/25/2024) * RI ILR DEVICE INTERROGAT REMOTE(Performed 01/01/2024) Performed for Acute ischemic left MCA stroke (HCC) * RI ILR DEVICE INTERROGAT REMOTE(Performed 12/26/2023) Performed for Acute ischemic left MCA stroke (HCC) * CARDIAC PROCEDURE ORDER(Performed 12/21/2023) * CARDIAC PROCEDURE ORDER(Performed 11/16/2023) * GLUCOSE - POINT OF CARE(Performed 09/30/2023) * GLUCOSE - POINT OF CARE(Performed 09/30/2023) * GLUCOSE - POINT OF CARE(Performed 09/30/2023) * PHOSPHORUS BLOOD(Performed 09/30/2023) * MAGNESIUM BLOOD(Performed 09/30/2023) * CBC W/O DIFFERENTIAL(Performed 09/30/2023) * BASIC METABOLIC PANEL (CALCIUM TOTAL)(Performed 09/30/2023) * GLUCOSE - POINT OF CARE(Performed 09/29/2023) * GLUCOSE - POINT OF CARE(Performed 09/29/2023) * GLUCOSE - POINT OF CARE(Performed 09/29/2023) * CCL LOOP RECORDER IMPLANT(Performed 09/29/2023) Performed for Acute ischemic left MCA stroke (HCC) * ECHO KSENIA COMPLETE(Performed 09/29/2023) Performed for Acute ischemic left MCA stroke (HCC) * GLUCOSE - POINT OF CARE(Performed 09/29/2023) * PHOSPHORUS BLOOD(Performed 09/29/2023) * MAGNESIUM BLOOD(Performed 09/29/2023) * CBC W/O DIFFERENTIAL(Performed 09/29/2023) * BASIC METABOLIC PANEL (CALCIUM TOTAL)(Performed 09/29/2023) * CARDIAC PROCEDURE ORDER(Performed 09/29/2023) * GLUCOSE - POINT OF CARE(Performed 09/28/2023) * GLUCOSE - POINT OF CARE(Performed 09/28/2023) * GLUCOSE - POINT OF CARE(Performed 09/28/2023) * BASIC METABOLIC PANEL (CALCIUM TOTAL)(Performed 09/28/2023) * GLUCOSE - POINT OF CARE(Performed 09/28/2023) * PHOSPHORUS BLOOD(Performed 09/28/2023) * MAGNESIUM BLOOD(Performed 09/28/2023) * CBC W/O DIFFERENTIAL(Performed 09/28/2023) * BASIC METABOLIC PANEL (CALCIUM TOTAL)(Performed 09/28/2023) * GLUCOSE - POINT OF CARE(Performed 09/27/2023) * GLUCOSE - POINT OF CARE(Performed 09/27/2023) * CARDIAC EKG ORDER(Performed 09/27/2023) * GLUCOSE - POINT OF CARE(Performed 09/27/2023) * ECHO COMPLETE W CONTRAST W BUBBLE STUDY(Performed 09/27/2023) Performed for Transient alteration of awareness * URINE MICROSCOPIC ONLY REFLEX TO CULTURE(Performed 09/27/2023) * URINALYSIS REFLEX TO MICROSCOPIC NO CULTURE(Performed 09/27/2023) * URINALYSIS REFLEX MICROSCOPIC REFLEX CULTURE(Performed 09/27/2023) * CULTURE URINE(Performed 09/27/2023) * GLUCOSE - POINT OF CARE(Performed 09/27/2023) * PHOSPHORUS BLOOD(Performed 09/27/2023) * MAGNESIUM BLOOD(Performed 09/27/2023) * CBC W/O DIFFERENTIAL(Performed 09/27/2023) * BASIC METABOLIC PANEL (CALCIUM TOTAL)(Performed 09/27/2023) * HEMOGLOBIN A1C(Performed 09/27/2023) * GLUCOSE - POINT OF CARE(Performed 09/26/2023) * GLUCOSE - POINT OF CARE(Performed 09/26/2023) * PHOSPHORUS BLOOD(Performed 09/26/2023) * MAGNESIUM BLOOD(Performed 09/26/2023) * CBC W/O DIFFERENTIAL(Performed 09/26/2023) * BASIC METABOLIC PANEL (CALCIUM TOTAL)(Performed 09/26/2023) * GLUCOSE - POINT OF CARE(Performed 09/26/2023) * GLUCOSE - POINT OF CARE(Performed 09/26/2023) * GLUCOSE - POINT OF CARE(Performed 09/25/2023) * GLUCOSE - POINT OF CARE(Performed 09/25/2023) * PHOSPHORUS BLOOD(Performed 09/25/2023) * MAGNESIUM BLOOD(Performed 09/25/2023) * LIPID PROFILE(Performed 09/25/2023) * CBC W/O DIFFERENTIAL(Performed 09/25/2023) * BASIC METABOLIC PANEL (CALCIUM TOTAL)(Performed 09/25/2023) * XR CHEST 1VW PORTABLE(Performed 09/25/2023) Performed for Transient alteration of awareness * TROPONIN-I HIGH SENSITIVE REFLEX 1HOUR(Performed 09/25/2023) * MRI BRAIN WO CONTRAST(Performed 09/25/2023) Performed for Transient alteration of awareness, Aphasia * XR ABDOMEN KUB PORTABLE(Performed 09/24/2023) Performed for Transient alteration of awareness * MAGNESIUM BLOOD(Performed 09/24/2023) * TROPONIN-I HIGH SENSITIVE BASELINE + 1HR(Performed 09/24/2023) * COMPREHENSIVE METABOLIC PANEL(Performed 09/24/2023) * CBC W AUTO DIFFERENTIAL(Performed 09/24/2023) * GLUCOSE - POINT OF CARE(Performed 09/24/2023) * EKG 12-LEAD(Performed 09/24/2023) Performed for Transient alteration of awareness * CT ANGIO BRAIN NECK STROKE(Performed 09/24/2023) Performed for Transient alteration of awareness * CREATININE - POCT INTERFACED(Performed 09/24/2023) * CT BRAIN STROKE(Performed 09/24/2023) Performed for Transient alteration of awareness * XR CHEST 2VW(Performed 09/24/2023) Performed for Transient alteration of awareness Results * CARDIAC PROCEDURE ORDER (04/04/2024) Only the most recent of5 resultswithin the time period is included. Narrative 04/04/2024 Ordered by an unspecified provider. Scanned Document CARDIAC SERVICES ORD ERABLES * RI ILR DEVICE INTERROGAT REMOTE (03/12/2024 9:14 AM GUMMED TAPE PRESS OPERATOR) Narrative Braulio Saxena MD - 03/12/2024 9:14 AM GUMMED TAPE PRESS OPERATOR Braulio Saxena MD 03/12/2024 9:14 AM Dear [...] Saxena MD PROCEDURE/MINOR SURG ICAL ORDERABLES * RI ILR DEVICE INTERROGAT REMOTE (02/13/2024 9:15 AM GUMMED TAPE PRESS OPERATOR) Narrative Braulio Saxena MD - 02/13/2024 9:15 AM GUMMED TAPE PRESS OPERATOR Braulio Saxena MD 02/13/2024 9:15 AM Dear [...] Saxena MD PROCEDURE/MINOR SURG ICAL ORDERABLES * RI ILR DEVICE INTERROGAT REMOTE (01/01/2024 9:37 AM GUMMED TAPE PRESS OPERATOR) Narrative Braulio Saxena MD - 01/01/2024 9:37 AM GUMMED TAPE PRESS OPERATOR Braulio Saxena MD 01/01/2024 9:38 AM Dear Gudelia Carlton, I reviewed the remote interrogation of your loop recorder. Your device's sensing is appropriate and stable. During this most recent monitored period ending on 12/21/2023 your atrial fibrillation/tachycardia burden was 0% and you had no significant arrhythmias. Device function is normal, no programming changes are required, and no medications will need to be changed. Please call our offices if you have any further questions. Sincerely, Brualio Saxena 01/01/2024 Braulio Saxena MD PROCEDURE/MINOR SURG ICAL ORDERABLES * RI ILR DEVICE INTERROGAT REMOTE (12/26/2023 11:09 PM GUMMED TAPE PRESS OPERATOR) Braulio Regalado MD - 12/26/2023 11:09 PM GUMMED TAPE PRESS OPERATOR Braulio Saxena MD 12/26/2023 11:11 PM Dear Gudelia Carlton, I reviewed the remote interrogation of your loop recorder. Your device's sensing is largely appropriate and stable. During this most recent monitored period ending on 11/16/2023 your atrial fibrillation/tachycardia burden was 0% and you had no significant arrhythmias. Device function is normal, no programming changes are required, and no medications will need to be changed. Please call our offices if you have any further questions. Sincerely, Braulio Saxena 12/26/2023 Braulio Saxena MD PROCEDURE/MINOR SURG ICAL ORDERABLES * GLUCOSE - POINT OF CARE (09/30/2023 12:03 PM CDT) Only the most recent of22 resultswithin the time period is included. [facility] Glucose WB/POC 100 70 - 115 mg/dL 09/30/2023 1:25 PM CDT [facility] Specimen Type Arterial 09/30/2023 1:25 PM CDT [facility] Blood BLOOD SPECIMEN / Unknown 09/30/2023 12:03 PM CDT 09/30/2023 1:25 PM CDT Al Avila MD LAB - POINT OF CARE ORDERABLES [facility] [address] [place] [id number], [facility] [phone] * (ABNORMAL) CBC W/O DIFFERENTIAL (09/30/2023 5:49 AM CDT) Only the most recent of6 resultswithin the time period is included. Pathologist [facility] WBC 5.9 4.0 - 10.7 x10E9/L 09/30/2023 6:32 AM [facility] RBC Count 3.75(L) 3.90 - 5.20 x10E12/L 09/30/2023 6:32 AM [facility] Hemoglobin 11.3(L) 11.9 - 15.8 g/dL 09/30/2023 6:32 AM [facility] Hematocrit 33.9(L) 34.8 - 46.1 % 09/30/2023 6:32 AM [facility] MCV 90.4 80.0 - 98.0 fL 09/30/2023 6:32 AM [facility] MCH 30.1 26.7 - 33.6 pg 09/30/2023 6:32 AM [facility] MCHC 33.3 31.7 - 36.3 g/dL 09/30/2023 6:32 AM [facility] RDW-CV 14.6 11.3 - 14.8 % 09/30/2023 6:32 AM [facility] Platelet Count 174 150 - 420 x10E9/L 09/30/2023 6:32 AM [facility] MPV 10.1 7.8 - 11.4 fL 09/30/2023 6:32 AM [facility] Blood BLOOD SPECIMEN / Unknown Lab Venipuncture / Unknown 09/30/2023 5:49 AM CDT 09/30/2023 6:22 AM CDT Kyle Menendez DO LAB - HEMATOLOGY ORD ERABLES [facility] [address] [place] [id number], [facility] [phone] * (ABNORMAL) BASIC METABOLIC PANEL (CALCIUM TOTAL) (09/30/2023 5:49 AM CDT) Only the most recent of7 resultswithin the time period is included. BUN 17 7 - 26 mg/dL 09/30/2023 6:54 AM [facility] Creatinine 1.25(H) 0.56 - 0.96 mg/dL 09/30/2023 6:54 AM [facility] Sodium 140 136 - 145 mmol/L 09/30/2023 6:54 AM [facility] Potassium 3.6 3.5 - 4.5 mmol/L 09/30/2023 6:54 AM [facility] Chloride 110(H) 98 - 107 mmol/L 09/30/2023 6:54 AM [facility] CO2 20(L) 22 - 29 mmol/L 09/30/2023 6:54 AM [facility] Glucose 98 70 - 115 mg/dL 09/30/2023 6:54 AM CDT [facility] Calcium 9.0 8.4 - 10.2 mg/dL 09/30/2023 6:54 AM T [facility] Anion Gap 10 6 - 16 09/30/2023 6:54 AM T [facility] BUN/Creatinine Ratio 14 7 - 23 09/30/2023 6:54 AM T [facility] Osmolality Calculated 292 275 - 295 mOsm/kg 09/30/2023 6:54 AM T [facility] eGFR by CKD-EPI 46(L) >=90 mL/min/1.7 3 m2 09/30/2023 6:54 AM CDT [facility] Blood BLOOD SPECIMEN / Unknown Lab Venipuncture / Unknown 09/30/2023 5:49 AM CDT 09/30/2023 6:24 AM CDT Kyle Menendez LAB - CHEMISTRY [facility] Performing Organization Address City/[facility]/ZIP Co de Phone Number [address] [address], [facility] [phone] * PHOSPHORUS BLOOD (09/30/2023 5:49 AM CDT) Only the most recent of6 resultswithin the time period is included. Phosphorus 3.4 2.9 - 5.1 mg/dL 09/30/2023 6:54 AM T [facility] Blood BLOOD SPECIMEN / Unknown Lab Venipuncture / Unknown 09/30/2023 5:49 AM CDT 09/30/2023 6:24 AM CDT Kyle Trinh Myrlboy LAB - CHEMISTRY [facility] [employer] [address] [address], [facility] [phone] * MAGNESIUM BLOOD (09/30/2023 5:49 AM CDT) Only the most recent of7 resultswithin the time period is included. Magnesium 1.6 1.6 - 2.6 mg/dL 09/30/2023 6:54 AM CDT [facility] Blood BLOOD SPECIMEN / Unknown Lab Venipuncture / Unknown 09/30/2023 5:49 AM CDT 09/30/2023 6:24 AM CDT Kyle Menendez DO LAB - CHEMISTRY [facility] Performing Organization Address City/State/[facility] Co de Phone Number [facility] [address] [place] [address], [facility] [phone] * CCL LOOP RECORDER IMPLANT (09/29/2023 11:40 AM CDT) Anatomical Region Laterality Modality Ultrasound Narrative 10/04/2023 9:31 AM CDT Successful implantation of a Medtronic Reveal Linq ICM. Reason for Procedure Gudelia Carlton is a 72 year old year old female with a hx of CVA. He is admitted with acute ischemic stroke suspected to be of embolic origin. Work up so far has been negative for systemic thrombus/emboli. She is hence referred for implantation of a loop recorder for diagnosis of possible occult atrial fibrillation. Procedure Details Estimated Blood Loss: 0 mL Procedure Details and Comments: ELECTROPHYSIOLOGY LAB/ DEVICE IMPLANTATION REPORT 10/01/2023 Procedure Performed: Implantation of an implantable threat monitoring analyst. Indication: Cryptogenic stroke Medications: 1% Lidocaine with epineprhine was utilized for local anesthetic. Procedure: The risks and benefits of the procedure were discussed with the patient and the patient consented for the procedure. The patient presented to the electrophysiology laboratory in a fasting, nonsedated state. Thepatient was prepped and draped in the usual sterile fashion for device implantation. 1% lidocaine with epinephrine was administered to the skin and subcutaneous tissues in the left parasternal area for local anesthesia. Thesupplied puncture blade was then used to make a small incision at the left 4th intercostal space just lateral to the sternum. The supplied tunneling tool was then used to make a pocket for the threat monitoring analyst. The cardiacmonitor was then inserted into the pocket. Testing of the device confirmed adequate signal and the incision was then covered with a sterile dressing. The patient tolerated the procedure well; there were no apparent complications at the end of the procedure. Device Information: The implantable threat monitoring analyst is a Medtronic Reveal Linq with a serial number of [id number] . R waves were measured at 0.37 mV. Tachycardia parameter is set at 162 bpm for 16 beats. Bradycardia parameter is setat 30 bpm for 4 beats. Impression: 1. Successful implantation of a Medtronic Reveal Linq ICM. Nga Richmond MD 10/01/2023 4:10 PM Loop Recorder Implant Implantable loop recorder implant was performed. The left anterior chest wall was sterilely prepped and draped in usual fashion. The timeout protocol was completed. Lidocaine 1% local anesthesia was infiltrated over the ILR site. The provided skin puncture device was used to make a small incision in the anterior chest wall. The provided insertion tool was then inserted into the subcutaneous tissue and the ILR was injected through the insertion tool which was then removed. ECG signal was measured and deemed acceptable. Al Avila MD CV ELECTROPHYSIOLOG Y CUPID PROCS * ECHO KSENIA COMPLETE (09/29/2023 11:10 AM CDT) LVOT diam 2.032 cm SSM CV FUJ I PACS LVOT VTI 21.71 cm SSM CV FUJ I PACS LVOT pk jason 100.364 cm/s SSM CV F UJI PACS AV pk jason 183.035 cm/s SSM CV FUJ I PACS Sinus of Valsalva 3.58 cm SSM CV FUJI PACS Ascending aorta 3.7 cm SSM CV FUJI PACS AV mn grad 4.323 mmHg SSM CV FU JI PACS Anatomical Region Laterality Modality Ultrasound 09/29/2023 10:1 5 AM CDT Narrative 10/01/2023 4:27 PM CDT Patient Info Name: Gudelia Carlton Age: 72 years : 1950 Gender: Female Ht: 65 in Wt: 325 lb BSA: 2.69 m2 HR: 67 bpm BP: 139 / 106 mmHg Heart Rhythm: Sinus Rhythm Exam Date: 09/29/2023 10:15 AM Patient Status: I/P Study Site: [facility] Primary Location: [facility] EStudy Info Exam Type: ECHO KSENIA COMPLETE Indications I63.512 - Acute ischemic left MCA stroke (HCC) Contrast/Agitated Saline Contrast / Saline: Agitated Saline Amount: 10.00 ml Reaction to Contrast: no * A complete transesophageal echo was performed using 2D, color Doppler, and spectral Doppler. * During the study the esophageal, transgastric, and descending thoracic views were captured. Staff Referring Physician: Al Avila Ordering Provider: Al Avila Attending Physician: Al Avila Fellow: Haley Reynolds Radio Disc Jockey: Josh Dela Cruz Performing Physician: Nga Richmond Complications * There were no complications prior to, during or in recovery from the transesophageal echocardiogram. Medications * Moderate sedation was monitored by the performing physician, see EMR for full details. A nurse administered the sedation under the supervision of a physician. * The posterior pharynx was sprayed with Cetacaine spray and the patient was administered viscous Xylocaine 2% by mouth. * The patient was premedicated with 100.00 mcg intravenous Fentanyl. * The patient was premedicated with 5.00 mg intravenous Versed. Procedure Details The patient arrived in a fasting state after obtaining informed consent. The transesophageal probe was passed without difficulty into the posterior pharynx, mid-esophagus, distal esophagus, and gastric fundus. Imaging was performed at multiple levels. The patient tolerated the procedure well and there were no complications. The patient was transferred out of the examination area in satisfactory condition. Left Ventricle Left ventricle appears grossly normal in size. Visually estimated EF is 60-65%. Right Ventricle Right ventricle appears normal size and has normal systolic function on visual assessment. Ventricular Septum Intact interventricular septum visualized by 2D imaging. Left Atrium No mass or thrombus formation in the left atrium. Right Atrium No mass or thrombus formation in the right atrium. Atrial Septum Intact interatrial septum visualized by 2D and color Doppler and agitated saline imaging. Agitated saline contrast study at rest and with Valsalva is negative for a shunt. Atrial Appendage The left atrial appendage is normal in shape with normal velocity, and there is no thrombus. Aortic Valve Aortic valve is trileaflet. There is no aortic valve stenosis with a peak velocity of 1.8 m/s, mean gradient of 4 mmHg, and aortic valve area of 2.2 cm2. Trace central aortic regurgitation. Pulmonic Valve Pulmonic valve is normal, with no stenosis, and no regurgitation. Mitral Valve Mitral valve is structurally normal. There is mild centrally directed mitral valve regurgitation. No stenosis. Tricuspid Valve The tricuspid valve is structurally normal. There is mild tricuspid valve regurgitation. No stenosis. Pulmonary Veins Normal flow patterns noted in the left upper pulmonary vein. Pericardium/Pleural No pericardial effusion. Aorta There is minimal plaque in the ascending, descending and aortic arch portions of the aorta. The aortic root at the sinus of Valsalva is normal in size measuring 3.6 cm with an index of 1.3 cm/m2. The ascending aorta is normal in size measuring 3.7 cm with an index of 1.4 cm/m2. Measurements Left Ventricular Outflow Tract Name Value Normal LVOT 2D LVOT Diameter 2.0 cm LVOT Area 3.2 cm2 LVOT Doppler LVOT Peak Velocity 1.0 m/s LVOT Peak Gradient 4 mmHg LVOT Mean Velocity 72.74 cm/s LVOT Mean Gradient 2 mmHg LVOT VTI 21.7 cm LVOT VTI/AV VTI Ratio 0.7 LVOT Stroke Volume 70 ml LVOT Stroke Volume Index 26 ml/m2 35-58 Aorta Name Value Normal Ascending Aorta Sinus of Valsalva Diameter 3.6 cm 2.4-3.6 Sinus of Valsalva Index 1.3 cm/m2 1.4-2.2 Asc Ao Diameter 3.7 cm 1.9-3.5 Asc Ao Diameter Index 1.4 cm/m2 1.0-2.2 Aortic Valve Name Value Normal AV Doppler AV Peak Velocity 1.83 m/s AV Peak Gradient 8 mmHg AV Mean Gradient 4 mmHg AV VTI 32 cm AV Area (Cont Eq VTI) 2.20 cm2 >=2.00 AV Area (Cont Eq Jason) 1.78 cm2 AV DI (Jason) 0.55 AV Regurgitation 2D LVOT Area 3.24 cm2 Report Signatures Finalized by Nga Richmond on 10/01/2023 04:27 PM Reviewed by Fellow Haley Reynolds on 09/29/2023 03:10 PM Procedure Note Nga Richmond MD - 10/01/2023 Patient Info Name: Gudelia Carlton Age: 72 years : 1950 Gender: Female Ht: 65 in Wt: 325 lb BSA: 2.69 m2 HR: 67 bpm BP: 139 / 106 mmHg Heart Rhythm: Sinus Rhythm Exam Date: 09/29/2023 10:15 AM Patient Status: I/P Study Site: [facility] Primary Location: [facility] EStudy Info Exam Type: ECHO KSENIA COMPLETE Indications I63.512 - Acute ischemic left MCA stroke (HCC) Contrast/Agitated Saline Contrast / Saline: Agitated Saline Amount: 10.00 ml Reaction to Contrast: no * A complete transesophageal echo was performed using 2D, color Doppler,and spectral Doppler. * During the study the esophageal, transgastric, and descendingthoracic views were captured. Staff Referring Physician: Al Avila Ordering Provider: Al Avila Attending Physician: Al Avila Fellow: Haley Reynolds Radio Disc Jockey: Josh Dela Cruz Performing Physician: Nga Richmond Complications * There were no complications prior to, during or in recovery from the transesophageal echocardiogram. Medications * Moderate sedation was monitored by the performing physician, see EMRfor full details. A nurse administered the sedation under the supervision ofa physician. * The posterior pharynx was sprayed with Cetacaine spray and the patientwas administered viscous Xylocaine 2% by mouth. * The patient was premedicated with 100.00 mcg intravenous Fentanyl. * The patient was premedicated with 5.00 mg intravenous Versed. Procedure Details The patient arrived in a fasting state after obtaining informedconsent. The transesophageal probe was passed without difficulty into theposterior pharynx, mid-esophagus, distal esophagus, and gastric fundus. Imagingwas performed at multiple levels. The patient tolerated the procedure welland there were no complications. The patient was transferred out of the examination area in satisfactory condition. Left Ventricle Left ventricle appears grossly normal in size. Visually estimated EFis 60-65%. Right Ventricle Right ventricle appears normal size and has normal systolic functionon visual assessment. Ventricular Septum Intact interventricular septum visualized by 2D imaging. Left Atrium No mass or thrombus formation in the left atrium. Right Atrium No mass or thrombus formation in the right atrium. Atrial Septum Intact interatrial septum visualized by 2D and color Doppler andagitated saline imaging. Agitated saline contrast study at rest and with Valsalvais negative for a shunt. Atrial Appendage The left atrial appendage is normal in shape with normal velocity, andthere is no thrombus. Aortic Valve Aortic valve is trileaflet. There is no aortic valve stenosis with apeak velocity of 1.8 m/s, mean gradient of 4 mmHg, and aortic valve area of2.2 cm2. Trace central aortic regurgitation. Pulmonic Valve Pulmonic valve is normal, with no stenosis, and no regurgitation. Mitral Valve Mitral valve is structurally normal. There is mild centrally directedmitral valve regurgitation. No stenosis. Tricuspid Valve The tricuspid valve is structurally normal. There is mild tricuspidvalve regurgitation. No stenosis. Pulmonary Veins Normal flow patterns noted in the left upper pulmonary vein. Pericardium/Pleural No pericardial effusion. Aorta There is minimal plaque in the ascending, descending and aortic arch portions of the aorta. The aortic root at the sinus of Valsalva is normalin size measuring 3.6 cm with an index of 1.3 cm/m2. The ascending aorta is normal in size measuring 3.7 cm with an index of 1.4 cm/m2. Measurements Left Ventricular Outflow Tract Name Value Normal LVOT 2D LVOT Diameter 2.0 cm LVOT Area 3.2 cm2 LVOT Doppler LVOT Peak Velocity 1.0 m/s LVOT Peak Gradient 4 mmHg LVOT Mean Velocity 72.74 cm/s LVOT Mean Gradient 2 mmHg LVOT VTI 21.7 cm LVOT VTI/AV VTI Ratio 0.7 LVOT Stroke Volume 70 ml LVOT Stroke Volume Index 26 ml/m2 35-58 Aorta Name Value Normal Ascending Aorta Sinus of Valsalva Diameter 3.6 cm 2.4-3.6 Sinus of Valsalva Index 1.3 cm/m2 1.4-2.2 Asc Ao Diameter 3.7 cm 1.9-3.5 Asc Ao Diameter Index 1.4 cm/m2 1.0-2.2 Aortic Valve Name Value Normal AV Doppler AV Peak Velocity 1.83 m/s AV Peak Gradient 8 mmHg AV Mean Gradient 4 mmHg AV VTI 32 cm AV Area (Cont Eq VTI) 2.20 cm2 >=2.00 AV Area (Cont Eq Jason) 1.78 cm2 AV DI (Jason) 0.55 AV Regurgitation 2D LVOT Area 3.24 cm2 Report Signatures Finalized by Nga Richmond on 10/01/2023 04:27 PM Reviewed by Fellow Haley Reynolds on 09/29/2023 03:10 PM Al Avila MD ECHO CUPID * CARDIAC EKG ORDER (09/27/2023 1:21 PM CDT) Narrative 09/27/2023 1:21 PM CDT Ordered by an unspecified provider. Scanned Document CARDIAC SERVICES ORD ERABLES * ECHO COMPLETE W CONTRAST W BUBBLE STUDY (09/27/2023 11:17 AM CDT) IVSd 2D 0.858 cm SSM CV FUJ I PACS LVIDd 5.326 cm SSM CV FUJ I PACS LVIDs 3.794 cm SSM CV FUJ I PACS LVOT diam 2.021 cm SSM CV FUJ I PACS LVPWd 1.625 cm SSM CV FUJ I PACS LV biplane EF 62.522 % SSM CV FUJI PACS LV A2C EF 65.912 % SSM CV FUJ I PACS LV A4C EF 59.7 % SSM CV FUJ I PACS LV EDV A2C 113.564 ml SSM CV FU JI PACS LV EDV A4C 166.323 ml SSM CV FU JI PACS LV ESV A2C 38.712 ml SSM CV FU JI PACS LV ESV A4C 67.028 ml SSM CV FU JI PACS LVOT pk jason 141.989 cm/s SSM CV F UJI PACS LVOT VTI 30.945 cm SSM CV FUJ I PACS RVIDd 2.466 cm SSM CV FUJ I PACS RVOT diam Doppler 2.187 cm SSM CV FUJI PACS RVOT pk jason 79.602 cm/s SSM CV F UJI PACS RVOT VTI 18.003 cm SSM CV FUJ I PACS LA size 4.652 cm SSM CV FUJ I PACS LA vol BP 83.555 ml SSM CV FUJ I PACS RA area 22.934 cm SSM CV FUJI PACS AV mn grad 13.159 mmHg SSM CV FU JI PACS AV pk jason 272.921 cm/s SSM CV FUJ I PACS AV VTI 60.458 cm SSM CV FUJ I PACS MV A pk jason 63.908 cm/s SSM CV F UJI PACS MV E pk jason 115.846 cm/s SSM CV F UJI PACS MV E' lateral jason 7.873 cm/s SSM CV FUJI PACS MV mn grad 2.266 mmHg SSM CV FU JI PACS MV VTI 39.64 cm SSM CV FUJ I PACS PV pk jason 140.052 cm/s SSM CV FUJ I PACS PV VTI 29.341 cm SSM CV FUJ I PACS TAPSE 3.135 cm SSM CV FUJ I PACS TR pk jason 318.408 cm/s SSM CV FUJ I PACS IVC Diam Expiration 1.777 cm SSM CV FUJI PACS LA vol index 0.031 l/m SSM CV FUJI PACS Myocardial strain charge 2 unitless SSM CV FUJI PACS Anatomical Region Laterality Modality Ultrasound 09/27/2023 8:37 AM CDT Narrative 09/27/2023 1:36 PM CDT Summary * There is mild aortic valve stenosis with a peak velocity of 2.7 m/s, mean gradient of 13 mmHg, and aortic valve area of 1.6 cm2. * There is severe concentric hypertrophy of the left ventricle. * The left ventricle is normal in size. * Left ventricular segmental wall motion is normal. * Left ventricular systolic function is normal with an estimated ejection fraction of 63% by biplane method of disks. * The left ventricular diastolic function is consistent with grade II diastolic dysfunction. * Right ventricle is normal in size with normal systolic function. * The left atrium is mildly dilated with a left atrial volume index of 31 ml/m2 by BP MOD. * The right atrium is mildly dilated. * The pulmonary artery systolic pressure is mildly elevated, 44 mmHg. Patient Info Name: Gudelia Carlton Age: 72 years : 1950 Gender: Female Ht: 65 in Wt: 325 lb BSA: 2.69 m2 HR: 59 bpm BP: 160 / 95 mmHg Heart Rhythm: Sinus Rhythm Exam Date: 09/27/2023 8:37 AM Patient Status: I/P Study Site: [facility] Primary Location: [facility] Info Technical Quality: Fair Exam Type: ECHO COMPLETE W CONTRAST W BUBBLE STUDY Indications R40.4 - Transient alteration of awareness Procedure(s) * A complete 2D, color Doppler, spectral Doppler and M-Mode transthoracic echocardiogram was performed. Contrast/Agitated Saline Contrast / Saline: Definity Amount: 0.50 ml Administered By: Radha Keller Reason for Technically Difficult Study: poor echocardiographic windows, body habitus Staff Referring Physician: Kyle Menendez Ordering Provider: Kyle Menendez Attending Physician: Kyle Menendez Radio Disc Jockey: Radha Keller Left Ventricle There is severe concentric hypertrophy of the left ventricle. The left ventricle is normal in size. Left ventricular segmental wall motion is normal. Left ventricular systolic function is normal with an estimated ejection fraction of 63% by biplane method of disks. The left ventricular diastolic function is consistent with grade II diastolic dysfunction. Right Ventricle The right ventricle is normal in size. Right ventricular systolic function is normal. Left Atrium The left atrium is mildly dilated with a left atrial volume index of 31 ml/m2 by BP MOD. Right Atrium The right atrium is mildly dilated. Atrial Septum Intact interatrial septum visualized by agitated saline imaging. Agitated saline contrast study at rest and with Valsalva is negative for a shunt. Aortic Valve There is mild aortic valve stenosis with a peak velocity of 2.7 m/s, mean gradient of 13 mmHg, and aortic valve area of 1.6 cm2. The aortic valve is trileaflet. There is mild aortic valve stenosis. There is trace aortic valve regurgitation. Pulmonic Valve The pulmonic valve is not well visualized. There is no pulmonic valve stenosis. There is mild pulmonic regurgitation. Mitral Valve The mitral valve is normal. There is no mitral valve stenosis. There is mild mitral valve regurgitation. Tricuspid Valve The tricuspid valve is normal. There is trace tricuspid valve regurgitation. The pulmonary artery systolic pressure is mildly elevated, 44 mmHg. Inferior Vena Cava The inferior vena cava is normal in size (< 2.1 cm). There is > 50% collapse of the IVC upon inspiration with an estimated right atrial pressure of 3 mmHg. Pericardium/Pleural There is no pericardial effusion. Aorta The aortic root at the sinus of Valsalva is normal in size. The ascending aorta is normal in size. Measurements Left Ventricular Outflow Tract Name Value Normal LVOT 2D LVOT Diameter 2.0 cm LVOT Area 3.2 cm2 LVOT Doppler LVOT Peak Velocity 1.4 m/s LVOT Peak Gradient 8 mmHg LVOT Mean Velocity 88.14 cm/s LVOT Mean Gradient 4 mmHg LVOT VTI 30.9 cm LVOT VTI/AV VTI Ratio 0.5 LVOT Stroke Volume 99 ml LVOT Stroke Volume Index 37 ml/m2 35-58 LVOT CO 5.9 l/min LVOT CI 2.2 l/min/m2 Pulmonic Valve Name Value Normal PV 2D RVOT Diameter (2D) 2.2 cm 1.7-2.7 RVOT Doppler RVOT Peak Velocity 0.8 m/s RVOT Peak Gradient 2 mmHg RVOT Mean Gradient 1 mmHg PV Doppler PV Peak Velocity 1.4 m/s PV Peak Gradient 8 mmHg PV Mean Gradient 4 mmHg PV Area (Cont Eq VTI) 2.30 cm2 PV Area Index (Cont Eq VTI) 0.85 cm2/m2 PV Area (Cont Eq Jason) 2.1 cm2 PV Area Index (Cont Eq Jason) 0.79 cm2/m2 Mitral Valve Name Value Normal MV Doppler MV Peak Gradient 7 mmHg MV Mean Gradient 2 mmHg MV DI (VTI) 1.28 MV PHT 87 ms MV Area (PHT) 2.54 cm2 4.00-5.00 MV Area (Cont Eq VTI) 2.50 cm2 MV Diastolic Function MV E Peak Velocity 1.2 m/sec MV A Peak Velocity 0.6 m/sec MV E/A 1.8 MV Decel Time (PW) 182 ms MV A Wave Duration 129 ms MV Annular TDI MV Septal e' Velocity 8 cm/s >=8 MV E/e' (Septal) 14 <=8 MV Lateral e' Velocity 8 cm/s >=10 MV E/e' (Lateral) 15 <=8 MV e' Average 8 cm/s MV E/e' (Average) 15 Tricuspid Valve Name Value Normal TV Regurgitation Doppler TR Peak Velocity 3.2 m/s TR Peak Gradient 41 mmHg Estimated PAP/RSVP RA Pressure 3 mmHg <=5 PA Systolic Pressure 44 mmHg <35 RV Systolic Pressure 44 mmHg <36 TV Annular TDI TV Lateral Radha s' Velocity 14 cm/s 10-19 Pulmonary Vessels Name Value Normal Pulmonary Veins Pulm Vein Peak Systolic Velocity 56.7 cm/s Pulm Vein Peak Diastolic Velocity 72.4 cm/s Pulm Vein S/D Velocity Ratio 1 Pulm Vein Ar Velocity 37.4 cm/s Pulm Vein Ar Dur - MV A Dur -1 ms Septae/Shunt/Generic Name Value Normal Qp/Qs Qp/Qs 0.7 Venous Name Value Normal IVC/SVC IVC Diameter 1.8 cm <=2.1 Aortic Valve Name Value Normal AV 2D/MM AV Cusp Sep (MM) 2.1 cm AV Doppler AV Peak Velocity 2.73 m/s AV Peak Gradient 30 mmHg AV Mean Gradient 13 mmHg AV VTI 60 cm AV Area (Cont Eq VTI) 1.64 cm2 >=2.00 AV Area (Cont Eq Jason) 1.67 cm2 AV DI (Jason) 0.52 AV Regurgitation 2D LVOT Area 3.21 cm2 Ventricles Name Value Normal LV Dimensions 2D/MM IVS Diastolic Thickness (2D) 0.9 cm 0.6-0.9 LVID Diastole (2D) 5.3 cm 3.8-5.2 LVPW Diastolic Thickness (2D) 1.6 cm 0.6-0.9 IVS Systolic Thickness (2D) 1.5 cm LVID Systole (2D) 3.8 cm 2.2-3.5 LVPW Systolic Thickness (2D) 2.3 cm LV Mass (2D Cubed) 342 g 67-162 LV Mass Index (2D Cubed) 127 g/m2 43-95 Relative Wall Thickness (2D) 0.61 <=0.42 LV Fractional Shortening/Ejection Fraction 2D/MM LV Fractional Shortening (2D) 29 % 27-45 LV EF (2D Teicholz) 55 % 54-74 LV Diastolic Volume (4C MOD) 166 ml LV EF (4C MOD) 60 % LV Diastolic Volume (2C MOD) 114 ml LV EF (2C MOD) 66 % LV Diastolic Volume (BP MOD) 137 ml 46-106 LV Diastolic Volume Index (BP MOD) 51 ml/m2 29-61 LV Systolic Volume (BP MOD) 52 ml 14-42 LV Systolic Volume Index (BP MOD) 19 ml/m2 8-24 LV EF (BP MOD) 63 % 54-74 LV Diastolic Length (4C) 8.3 cm LV Systolic Length (4C) 7.0 cm LV Stroke Volume (4C MOD) 99 ml RV Dimensions 2D/MM RVID Diastole (2D) 2.5 cm 2.5-3.5 RVID Systole (2D) 2.5 cm TAPSE 3.1 cm >=1.7 Atria Name Value Normal LA Dimensions LA Dimension (2D) 4.7 cm 2.7-3.8 LA Dimen Index (2D) 1.7 cm/m2 LA Volume (BP MOD) 84 ml LA Volume Index (BP MOD) 31 ml/m2 16-34 RA Dimensions RA Area (4C) 23 cm2 <=18 RA Area (4C) Index 9 cm2/m2 Report Signatures Finalized by Abbie Larios MD on 09/27/2023 01:36 PM Procedure Note Abbie Larios MD - 09/27/2023 Summary * There is mild aortic valve stenosis with a peak velocity of 2.7 m/s,mean gradient of 13 mmHg, and aortic valve area of 1.6 cm2. * There is severe concentric hypertrophy of the left ventricle. * The left ventricle is normal in size. * Left ventricular segmental wall motion is normal. * Left ventricular systolic function is normal with an estimatedejection fraction of 63% by biplane method of disks. * The left ventricular diastolic function is consistent with grade II diastolic dysfunction. * Right ventricle is normal in size with normal systolic function. * The left atrium is mildly dilated with a left atrial volume index of31 ml/m2 by BP MOD. * The right atrium is mildly dilated. * The pulmonary artery systolic pressure is mildly elevated, 44 mmHg. Patient Info Name: Gudelia Carlton Age: 72 years : 1950 Gender: Female Ht: 65 in Wt: 325 lb BSA: 2.69 m2 HR: 59 bpm BP: 160 / 95 mmHg Heart Rhythm: Sinus Rhythm Exam Date: 09/27/2023 8:37 AM Patient Status: I/P Study Site: [facility] Primary Location: [facility] EStudy Info Technical Quality: Fair Exam Type: ECHO COMPLETE W CONTRAST W BUBBLE STUDY Indications R40.4 - Transient alteration of awareness Procedure(s) * A complete 2D, color Doppler, spectral Doppler and M-Modetransthoracic echocardiogram was performed. Contrast/Agitated Saline Contrast / Saline: Definity Amount: 0.50 ml Administered By: Radha Keller Reason for Technically Difficult Study: poor echocardiographicwindows, body habitus Staff Referring Physician: Kyle Menendez Ordering Provider: Kyle Menendez Attending Physician: Kyle Menendez Radio Disc Jockey: Radha Keller Left Ventricle There is severe concentric hypertrophy of the left ventricle. The left ventricle is normal in size. Left ventricular segmental wall motion isnormal. Left ventricular systolic function is normal with an estimated ejection fraction of 63% by biplane method of disks. The left ventriculardiastolic function is consistent with grade II diastolic dysfunction. Right Ventricle The right ventricle is normal in size. Right ventricular systolicfunction is normal. Left Atrium The left atrium is mildly dilated with a left atrial volume index of31 ml/m2 by BP MOD. Right Atrium The right atrium is mildly dilated. Atrial Septum Intact interatrial septum visualized by agitated saline imaging.Agitated saline contrast study at rest and with Valsalva is negative for a shunt. Aortic Valve There is mild aortic valve stenosis with a peak velocity of 2.7 m/s,mean gradient of 13 mmHg, and aortic valve area of 1.6 cm2. The aortic valveis trileaflet. There is mild aortic valve stenosis. There is trace aorticvalve regurgitation. Pulmonic Valve The pulmonic valve is not well visualized. There is no pulmonic valve stenosis. There is mild pulmonic regurgitation. Mitral Valve The mitral valve is normal. There is no mitral valve stenosis. There ismild mitral valve regurgitation. Tricuspid Valve The tricuspid valve is normal. There is trace tricuspid valveregurgitation. The pulmonary artery systolic pressure is mildly elevated, 44 mmHg. Inferior Vena Cava The inferior vena cava is normal in size (< 2.1 cm). There is > 50%collapse of the IVC upon inspiration with an estimated right atrial pressure of 3mmHg. Pericardium/Pleural There is no pericardial effusion. Aorta The aortic root at the sinus of Valsalva is normal in size. Theascending aorta is normal in size. Measurements Left Ventricular Outflow Tract Name Value Normal LVOT 2D LVOT Diameter 2.0 cm LVOT Area 3.2 cm2 LVOT Doppler LVOT Peak Velocity 1.4 m/s LVOT Peak Gradient 8 mmHg LVOT Mean Velocity 88.14 cm/s LVOT Mean Gradient 4 mmHg LVOT VTI 30.9 cm LVOT VTI/AV VTI Ratio 0.5 LVOT Stroke Volume 99 ml LVOT Stroke Volume Index 37 ml/m2 35-58 LVOT CO 5.9 l/min LVOT CI 2.2 l/min/m2 Pulmonic Valve Name Value Normal PV 2D RVOT Diameter (2D) 2.2 cm 1.7-2.7 RVOT Doppler RVOT Peak Velocity 0.8 m/s RVOT Peak Gradient 2 mmHg RVOT Mean Gradient 1 mmHg PV Doppler PV Peak Velocity 1.4 m/s PV Peak Gradient 8 mmHg PV Mean Gradient 4 mmHg PV Area (Cont Eq VTI) 2.30 cm2 PV Area Index (Cont Eq VTI) 0.85 cm2/m2 PV Area (Cont Eq Jason) 2.1 cm2 PV Area Index (Cont Eq Jason) 0.79 cm2/m2 Mitral Valve Name Value Normal MV Doppler MV Peak Gradient 7 mmHg MV Mean Gradient 2 mmHg MV DI (VTI) 1.28 MV PHT 87 ms MV Area (PHT) 2.54 cm2 4.00-5.00 MV Area (Cont Eq VTI) 2.50 cm2 MV Diastolic Function MV E Peak Velocity 1.2 m/sec MV A Peak Velocity 0.6 m/sec MV E/A 1.8 MV Decel Time (PW) 182 ms MV A Wave Duration 129 ms MV Annular TDI MV Septal e' Velocity 8 cm/s >=8 MV E/e' (Septal) 14 <=8 MV Lateral e' Velocity 8 cm/s >=10 MV E/e' (Lateral) 15 <=8 MV e' Average 8 cm/s MV E/e' (Average) 15 Tricuspid Valve Name Value Normal TV Regurgitation Doppler TR Peak Velocity 3.2 m/s TR Peak Gradient 41 mmHg Estimated PAP/RSVP RA Pressure 3 mmHg <=5 PA Systolic Pressure 44 mmHg <35 RV Systolic Pressure 44 mmHg <36 TV Annular TDI TV Lateral Radha s' Velocity 14 cm/s 10-19 Pulmonary Vessels Name Value Normal Pulmonary Veins Pulm Vein Peak Systolic Velocity 56.7 cm/s Pulm Vein Peak Diastolic Velocity 72.4 cm/s Pulm Vein S/D Velocity Ratio 1 Pulm Vein Ar Velocity 37.4 cm/s Pulm Vein Ar Dur - MV A Dur -1 ms Septae/Shunt/Generic Name Value Normal Qp/Qs Qp/Qs 0.7 Venous Name Value Normal IVC/SVC IVC Diameter 1.8 cm <=2.1 Aortic Valve Name Value Normal AV 2D/MM AV Cusp Sep (MM) 2.1 cm AV Doppler AV Peak Velocity 2.73 m/s AV Peak Gradient 30 mmHg AV Mean Gradient 13 mmHg AV VTI 60 cm AV Area (Cont Eq VTI) 1.64 cm2 >=2.00 AV Area (Cont Eq Jason) 1.67 cm2 AV DI (Jasno) 0.52 AV Regurgitation 2D LVOT Area 3.21 cm2 Ventricles Name Value Normal LV Dimensions 2D/MM IVS Diastolic Thickness (2D) 0.9 cm 0.6-0.9 LVID Diastole (2D) 5.3 cm 3.8-5.2 LVPW Diastolic Thickness (2D) 1.6 cm 0.6-0.9 IVS Systolic Thickness (2D) 1.5 cm LVID Systole (2D) 3.8 cm 2.2-3.5 LVPW Systolic Thickness (2D) 2.3 cm LV Mass (2D Cubed) 342 g 67-162 LV Mass Index (2D Cubed) 127 g/m2 43-95 Relative Wall Thickness (2D) 0.61 <=0.42 LV Fractional Shortening/Ejection Fraction 2D/MM LV Fractional Shortening (2D) 29 % 27-45 LV EF (2D Teichsharlaz) 55 % 54-74 LV Diastolic Volume (4C MOD) 166 ml LV EF (4C MOD) 60 % LV Diastolic Volume (2C MOD) 114 ml LV EF (2C MOD) 66 % LV Diastolic Volume (BP MOD) 137 ml 46-106 LV Diastolic Volume Index (BP MOD) 51 ml/m2 29-61 LV Systolic Volume (BP MOD) 52 ml 14-42 LV Systolic Volume Index (BP MOD) 19 ml/m2 8-24 LV EF (BP MOD) 63 % 54-74 LV Diastolic Length (4C) 8.3 cm LV Systolic Length (4C) 7.0 cm LV Stroke Volume (4C MOD) 99 ml RV Dimensions 2D/MM RVID Diastole (2D) 2.5 cm 2.5-3.5 RVID Systole (2D) 2.5 cm TAPSE 3.1 cm >=1.7 Atria Name Value Normal LA Dimensions LA Dimension (2D) 4.7 cm 2.7-3.8 LA Dimen Index (2D) 1.7 cm/m2 LA Volume (BP MOD) 84 ml LA Volume Index (BP MOD) 31 ml/m2 16-34 RA Dimensions RA Area (4C) 23 cm2 <=18 RA Area (4C) Index 9 cm2/m2 Report Signatures Finalized by Abbie Larios MD on 09/27/2023 01:36 PM Kyle Menendez DO ECHO CUPID * (ABNORMAL) URINE MICROSCOPIC ONLY REFLEX TO CULTURE (09/27/2023 10:31 AM CDT) Reflex Status Culture to follow 09/27/2023 10:51 AM CDT [facility] WBC UA 6-10(A) None Seen, 0-5 /HPF 09/27/2023 10:51 AM CDT [facility] Bacteria UA 2+(A) None /HPF 09/27/2023 10:51 AM T [facility] Squamous Epithelial Cells UA 0-2 None Seen, 0-2, 3-5 /HPF 09/27/2023 10:51 AM [facility] Urine URINE SPECIMEN OBTAINED BY CLEAN CATCH PROCEDURE / Unknown Collection / Unknown 09/27/2023 10:31 AM CDT 09/27/2023 10:36 AM CDT Kyle Menendez DO LAB - URINALYSIS ORD ERABLES [address] [address], [facility] [phone] * (ABNORMAL) URINALYSIS REFLEX MICROSCOPIC REFLEX CULTURE (09/27/2023 10:31 AM CDT) Color UA Yellow Straw, Yellow 09/27/2023 10:51 AM CDT [facility] Clarity UA Clear Clear 09/27/2023 10:51 AM CDT [facility] Specific [place] UA 1.006 1.005 - 1.030 09/27/2023 10:51 AM [facility] pH UA 6.0 5.0 - 8.0 pH 09/27/2023 10:51 AM T [facility] Protein UA Negative Negative 09/27/2023 10:51 AM T [facility] Glucose UA Negative Negative 09/27/2023 10:51 AM T [facility] Ketone UA Negative Negative 09/27/2023 10:51 AM [facility] Bilirubin UA Negative Negative 09/27/2023 10:51 AM [facility] Blood UA Negative Negative 09/27/2023 10:51 AM [facility] Nitrite UA Positive(A) Negative 09/27/2023 10:51 AM [facility] Leukocyte Esterase Trace(A) Negative 09/27/2023 10:51 AM [facility] Urobilinogen UA Negative Negative mg/dL 09/27/2023 10:51 AM [facility] Urine URINE SPECIMEN OBTAINED BY CLEAN CATCH PROCEDURE / Unknown Collection / Unknown 09/27/2023 10:31 AM CDT 09/27/2023 10:36 AM [facility] Kyle Menendez DO LAB - URINALYSIS ORD ERABLES [facility] [address] [place] [id number], [facility] [phone] * (ABNORMAL) URINALYSIS REFLEX TO MICROSCOPIC NO CULTURE (09/27/2023 10:31 AM T) Color UA Yellow Straw, Yellow 09/27/2023 10:51 AM [facility] Clarity UA Clear Clear 09/27/2023 10:51 AM [facility] Specific [place] UA 1.006 1.005 - 1.030 09/27/2023 10:51 AM [facility] pH UA 6.0 5.0 - 8.0 pH 09/27/2023 10:51 AM [facility] Protein UA Negative Negative 09/27/2023 10:51 AM [facility] Glucose UA Negative Negative 09/27/2023 10:51 AM [facility] Ketone UA Negative Negative 09/27/2023 10:51 AM [facility] Bilirubin UA Negative Negative 09/27/2023 10:51 AM [facility] Blood UA Negative Negative 09/27/2023 10:51 AM [facility] Nitrite UA Positive(A) Negative 09/27/2023 10:51 AM [facility] Leukocyte Esterase Trace(A) Negative 09/27/2023 10:51 AM CDT [facility] Urobilinogen UA Negative Negative mg/dL 09/27/2023 10:51 AM CDT [facility] RBC UA 0-2 None Seen, 0-2, 3-5 /HPF 09/27/2023 10:51 AM CDT [facility] WBC UA 6-10(A) None Seen, 0-5 /HPF 09/27/2023 10:51 AM CDT [facility] Bacteria UA 2+(A) None /HPF 09/27/2023 10:51 AM CDT [facility] Squamous Epithelial Cells UA 0-2 None Seen, 0-2, 3-5 /HPF 09/27/2023 10:51 AM CDT [facility] Urine URINE SPECIMEN OBTAINED BY CLEAN CATCH PROCEDURE / Unknown Collection / Unknown 09/27/2023 10:31 AM CDT 09/27/2023 10:36 AM CDT [facility] - 09/27/2023 10:51 AM CDT Al Avila MD LAB - URINALYSIS OR DERABLES [address] [address], [facility] [phone] * (ABNORMAL) CULTURE URINE (09/27/2023 10:31 AM CDT) Pathologist [facility] Culture Urine >100,000 CFU/mL Escherichia coli(A) NARDA 09/28/2023 10:08 PM CDT [facility] Urine URINE SPECIMEN OBTAINED BY CLEAN CATCH PROCEDURE / Unknown Collection / Unknown 09/27/2023 10:31 AM CDT 09/27/2023 10:50 AM CDT Narrative Organism Antibiotic Method Susceptibility Escherichia coli Amikacin NARDA <=2 ug/mL: Susceptible Escherichia coli Ampicillin NARDA 8 ug/mL: Susceptible Escherichia coli Ampicillin-sulbactam NARDA <=2 ug/mL: Susceptible Escherichia coli Cefazolin NARDA <=4 ug/mL: See Comment* Escherichia coli Cefazolin-Urine (uncomplicated infections ONLY) NARDA <=4 ug/mL: Susceptible Escherichia coli Cefepime NARDA <=1 ug/mL: Susceptible Escherichia coli Ceftriaxone NARDA <=1 ug/mL: Susceptible Escherichia coli Ciprofloxacin NARDA <=0.25 ug/mL: Susceptible Escherichia coli Gentamicin NARDA <=1 ug/mL: Susceptible Escherichia coli Meropenem NARDA <=0.25 ug/mL: Susceptible Escherichia coli Nitrofurantoin NARDA <=16 ug/mL: Susceptible Escherichia coli Piperacillin-tazobactam NARDA <=4 ug/mL: Susceptible Escherichia coli Tobramycin ANRDA <=1 ug/mL: Susceptible Escherichia coli Trimethoprim-sulfame thoxaz ole NARDA <=20 ug/mL: Susceptible Comment: *Cefazolin NARDA of </=4 cannot distinguish between susceptible or intermediate for systemic breakpoints. If further defined interpretation is needed, call Microbiology and a disk diffusion test will be performed. Urine breakpoints for cefazolin should only be used when treating uncomplicated UTIs including men and women without urologic abnormality, kidney stones, stents, nephrostomy tubes, signs/symptoms of systemic illness, or pelvic/perineal pain in men. Cefazolin results can be used to predict susceptibility to oral cephalosporins - cephalexin, cefprozil, cefaclor, cefuroxime, cefdinir, and cefpodoxime. For complicated UTIs, use alternative cefazolin susceptibility result above. Kyle Menendez DO LAB - MICROBIOLOGY O RDERABLES [facility] [address] [place], [place] [address], [facility] [phone] * (ABNORMAL) HEMOGLOBIN A1C (09/27/2023 5:31 AM CDT) [facility] Signature Hemoglobin A1c 6.0(H) <=5.6 % 09/27/2023 10:04 AM T [facility] Estimated Average Glucose 126 mg/dL 09/27/2023 10:04 AM [facility] Comment: HbA1c Interpretation: Normal : < 5.7% Pre-diabetes: 5.7-6.4% Diabetes: Equal to or greater than 6.5% Test results diagnostic of diabetes should be repeated for confirmation. Treatment target values recommended by ADA and other clinical organizations should be used to evaluate metabolic control in patients. Reference: [place] [employer], Standards of Care in Diabetes -2020 In patients 70 years and older consider HbA1c target range of 7.0-7.5% (Reference: Bayron Joseph et al. JAMDA. 2012) The Sebia assay for the measurement of HbA1c is a National Glycohemoglobin Standardization Program (NGSP) certified method. Blood BLOOD SPECIMEN / Unknown Lab Venipuncture / Unknown 09/27/2023 5:31 AM CDT 09/27/2023 6:03 AM CDT Kyle Menendez DO LAB - CHEMISTRY [facility] [address] [address], [facility] [phone] * LIPID PROFILE (09/25/2023 6:14 AM CDT) Cholesterol Total 120 <200 mg/dL 09/25/2023 6:53 AM T [facility] HDL 45 >40 mg/dL 09/25/2023 6:53 AM T [facility] Comment: ATP III Classification of HDL Cholesterol: <40 mg/dL: Considered a major risk factor. >60 mg/dL: Considered a negative risk factor. LDL Calculated 62 <100 mg/dL 09/25/2023 6:53 AM [facility] Comment: ATP III Classification of LDL Cholesterol: <100 mg/dL: Optimal 100 - 129 mg/dL: Near Optimal/Above Optimal 130 - 159 mg/dL: Borderline High 160 - 189 mg/dL: High >190 mg/dL: Very High Triglycerides 67 <150 mg/dL 09/25/2023 6:53 AM T [facility] Comment: ATP III Classification of Triglycerides: <150 mg/dL: Normal 150 - 199 mg/dL: Borderline High 200 - 400 mg/dL: High >500 mg/dL: Very High Blood BLOOD SPECIMEN / Unknown Venipuncture / Unknown 09/25/2023 6:14 AM CDT 09/25/2023 6:21 AM CDT Kyle Menendez DO LAB - CHEMISTRY [facility] [address] [address], [facility] [phone] * XR Chest 1Vw Portable (09/25/2023 5:17 AM CDT) Anatomical Region Laterality Modality Chest Radiographic [place] ging 09/25/2023 5:22 AM CDT Narrative 09/25/2023 7:56 AM CDT PROCEDURE: XR CHEST 1VW PORTABLE, DATE/TIME OF EXAM: 09/25/2023 5:17 AM, LOCATION [facility] INDICATION: R40.4: Transient alteration of awareness ADDITIONAL CLINICAL INFORMATION: Ordering Provider Reason For Exam: white secretions, possible PNA Comparison: Chest x-ray from 09/24/2023 FINDINGS/IMPRESSION: Interval decrease in interstitial and airspace opacification from the prior exam, which may represent decreased pulmonary edema. Superimposed interstitial pneumonia is not excluded. No pleural effusion. No pneumothorax. The cardiomediastinal silhouette is normal for portable technique. Report dictated by Reji Gillette MD (radiology therapist). Phill Thompson MD have personally reviewed and interpreted this examination/study. > Interpreting Provider: Phill Dorado MD on 09/25/2023 7:56 AM Procedure Note Phill Dorado MD - 09/25/2023 PROCEDURE: XR CHEST 1VW PORTABLE, DATE/TIME OF EXAM: 09/25/2023 5:17 AM, LOCATION [facility] INDICATION: R40.4: Transient alteration of awareness ADDITIONAL CLINICAL INFORMATION: Ordering Provider Reason For Exam: white secretions, possible PNA Comparison: Chest x-ray from 09/24/2023 FINDINGS/IMPRESSION: Interval decrease in interstitial and airspace opacification from theprior exam, which may represent decreased pulmonary edema. Superimposed interstitial pneumonia is not excluded. No pleural effusion. No pneumothorax. The cardiomediastinal silhouette is normal for portable technique. Report dictated by Reji Gillette MD (radiology therapist). Phill Thompson MD have personally reviewed and interpreted this examination/study. > Interpreting Provider: Phill Dorado MD on 09/25/2023 7:56 AM Al Avila MD DIAGNOSTIC IMAGING ORDERABLES * TROPONIN-I HIGH SENSITIVE REFLEX 1HOUR (09/25/2023 1:01 AM CDT) Troponin I High Sensitive 8 <=14 ng/L 09/25/2023 1:43 AM CDT [facility] Delta Troponin I HS 09/25/2023 1:43 AM CDT [facility] Comment:Delta value intentio lilia not calculated. Baseline to 1 hour specimen collection interval exceeded. Blood BLOOD SPECIMEN / Unknown Venipuncture / Unknown 09/25/2023 1:01 AM CDT 09/25/2023 1:07 AM CDT Kyle Menendez DO LAB - CHEMISTRY ORDE UC[facility] [address] [address], [facility] [phone] * MRI Brain Wo Contrast (09/25/2023 12:17 AM CDT) Anatomical Region Laterality Modality Head Magnetic Resonan ce 09/27/2023 7:55 AM CDT Impressions 09/27/2023 9:15 AM CDT IMPRESSION: 1. Confluent area of cortical and subcortical restricted diffusion involving the left parietal, insular regions with mild extension into the adjacent left temporal lobe consistent with evolving known acute infarction in the left MCA vascular territory. No significant mass effect or midline shift. Evaluation of hemorrhagic transformation is limited on motion degraded SWI sequences. 2. Punctate focus of acute to subacute infarct also noted in the right frontal lobe. Report dictated by Rusty Amaral MD, PhD (radiology therapist). I, Vanesa Mallory MD have personally reviewed and interpreted this examination/study. > Interpreting Provider: Vanesa Mallory MD on 09/27/2023 9:15 AM Narrative 09/27/2023 9:15 AM CDT PROCEDURE: MRI BRAIN WO CONTRAST, DATE/TIME OF EXAM: 09/25/2023 12:17 AM, LOCATION [facility] INDICATION: R40.4: Transient alteration of awareness R47.01: Aphasia ADDITIONAL CLINICAL INFORMATION: Ordering Provider Reason For Exam: aphaisa, stroke? Technologist Note: Additional: None. EXAMINATION: Magnetic resonance imaging (MRI) of the brain without contrast TECHNIQUE: MRI of the brain was performed without contrast according to standard protocol. COMPARISON: CT brain stroke from 09/24/2023. CTA brain and neck stroke from 09/24/2023. FINDINGS: Evaluation slightly limited by motion artifact. Moderate confluent area of restricted diffusion involving the cortical and subcortical regions of left frontoparietal regions, left insula and small portion of the left temporal lobe temporal consistent with known acute infarction left MCA vascular territory infarct (series 3 image 12). There is associated mild T2/FLAIR hyperintensity. Significantly Limited evaluation of the susceptibility weighted images secondary to motion artifact. Evaluation of hemorrhagic transformation is limited on this study. There is associated minimal mass effect with effacement of the adjacent sulci. No significant effacement of the left lateral ventricle or midline shift. Small additional punctate focus of acute to subacute infarct in the right frontal lobe (image 18, series 3 with associated minimal T2/FLAIR hyperintensity. There is mild cerebral volume loss with associated ex vacuo ventricular dilatation. No mass effect or midline shift is seen. Moderate burden of periventricular, subcortical white matter FLAIR hyperintensities likely represent sequelae of chronic small vessel ischemic disease. Old lacunar infarcts are present in the bilateral ganglia capsular regions. The corpus callosum and sella appear normal. The posterior fossa, brainstem, and craniocervical junction appear normal. Other than bilateral cataract extractions, the visualized portions of the orbits, paranasal sinuses, and mastoids appear normal. Normal flow voids are demonstrated in the carotid arteries and basilar artery. The calvarium appears normal. Mild to moderate multilevel degenerative changes noted in the cervical spine. Procedure Note Vanesa Mallory MD - 09/27/2023 PROCEDURE: MRI BRAIN WO CONTRAST, DATE/TIME OF EXAM: 09/25/2023 12:17AM, LOCATION [facility] INDICATION: R40.4: Transient alteration of awareness R47.01: Aphasia ADDITIONAL CLINICAL INFORMATION: Ordering Provider Reason For Exam: aphaisa, stroke? Technologist Note: Additional: None. EXAMINATION: Magnetic resonance imaging (MRI) of the brain withoutcontrast TECHNIQUE: MRI of the brain was performed without contrast according to standard protocol. COMPARISON: CT brain stroke from 09/24/2023. CTA brain and neck strokefrom 09/24/2023. FINDINGS: Evaluation slightly limited by motion artifact. Moderate confluent area of restricted diffusion involving the corticaland subcortical regions of left frontoparietal regions, left insula andsmall portion of the left temporal lobe temporal consistent with known acute infarction left MCA vascular territory infarct (series 3 image 12).There is associated mild T2/FLAIR hyperintensity. Significantly Limited evaluation of the susceptibility weighted images secondary to motion artifact. Evaluation of hemorrhagic transformation is limited on this study. There is associated minimal mass effect with effacement of the adjacent sulci. No significant effacement of the left lateral ventricleor midline shift. Small additional punctate focus of acute to subacute infarct in theright frontal lobe (image 18, series 3 with associated minimal T2/FLAIR hyperintensity. There is mild cerebral volume loss with associated ex vacuo ventricular dilatation. No mass effect or midline shift is seen. Moderate burden of periventricular, subcortical white matter FLAIR hyperintensities likely represent sequelae of chronic small vessel ischemic disease. Old lacunar infarcts are present in the bilateral ganglia capsular regions. Thecorpus callosum and sella appear normal. The posterior fossa, brainstem, and craniocervical junction appear normal. Other than bilateral cataract extractions, the visualized portions ofthe orbits, paranasal sinuses, and mastoids appear normal. Normal flow voids are demonstrated in the carotid arteries and basilar artery. Thecalvarium appears normal. Mild to moderate multilevel degenerative changes notedin the cervical spine. IMPRESSION: 1. Confluent area of cortical and subcortical restricted diffusion involving the left parietal, insular regions with mild extension intothe adjacent left temporal lobe consistent with evolving known acuteinfarction in the left MCA vascular territory. No significant mass effect ormidline shift. Evaluation of hemorrhagic transformation is limited on motion degraded SWI sequences. 2. Punctate focus of acute to subacute infarct also noted in the right frontal lobe. Report dictated by Rusty Amaral MD, PhD (radiology therapist). I, Vanesa Mallory MD have personally reviewed and interpreted this examination/study. > Interpreting Provider: Vanesa Mallory MD on 09/27/2023 9:15 AM Kyle Menendez DO MR ORDERABLES * XR Abdomen Kub Portable (09/24/2023 9:47 PM CDT) Anatomical Region Laterality Modality Abdomen Radiographic [place] ging 09/24/2023 11:2 0 PM CDT Impressions 09/24/2023 11:21 PM CDT IMPRESSION: Nonobstructive bowel gas pattern. No retained foreign bodies. > Interpreting Provider: Phill Dorado MD on 09/24/2023 11:21 PM Narrative 09/24/2023 11:21 PM CDT PROCEDURE: XR ABDOMEN KUB PORTABLE DATE/TIME OF EXAM: 09/24/2023 9:47 PM CLINICAL INFORMATION: None relevant/not provided if blank. Indication: R40.4: Transient alteration of awareness Additional History: COMPARISON: None. FINDINGS: The bowel gas pattern is nonobstructive. No pneumatosis or portal venous gas is seen. Free intraperitoneal air is not adequately assessed on supine radiographs. No retained radiopaque foreign bodies are noted. Excreted contrast is seen in the urinary bladder. No acute osseous abnormality is noted. Procedure Note Phill Dorado MD - 09/24/2023 PROCEDURE: XR ABDOMEN KUB PORTABLE DATE/TIME OF EXAM: 09/24/2023 9:47 PM CLINICAL INFORMATION: None relevant/not provided if blank. Indication: R40.4: Transient alteration of awareness Additional History: COMPARISON: None. FINDINGS: The bowel gas pattern is nonobstructive. No pneumatosis or portal venous gas is seen. Free intraperitoneal air is not adequately assessed onsupine radiographs. No retained radiopaque foreign bodies are noted. Excreted contrast is seen in the urinary bladder. No acute osseous abnormality is noted. IMPRESSION: Nonobstructive bowel gas pattern. No retained foreign bodies. > Interpreting Provider: Phill Dorado MD on 09/24/2023 11:21 PM Kyle Menendez DO DIAGNOSTIC IMAGING O RDERABLES * (ABNORMAL) TROPONIN-I HIGH SENSITIVE BASELINE + 1HR (09/24/2023 9:19 PM CDT) Troponin I High Sensitive 18(H) <=14 ng/L 09/24/2023 9:58 PM CDT [facility] Blood BLOOD SPECIMEN / Unknown Venipuncture / Unknown 09/24/2023 9:19 PM CDT 09/24/2023 9:25 PM CDT Kyle R Bisesi DO LAB - CHEMISTRY ORDE [facility] Organization Address City/State/ZIP Co de Phone Number [facility] [address] [place] [address], [facility] [phone] * (ABNORMAL) CBC W AUTO DIFFERENTIAL (09/24/2023 9:19 PM CDT) [facility] WBC 8.1 4.0 - 10.7 x10E9/L 09/24/2023 9:37 PM T [facility] RBC Count 3.71(L) 3.90 - 5.20 x10E12/L 09/24/2023 9:37 PM [facility] Hemoglobin 11.3(L) 11.9 - 15.8 g/dL 09/24/2023 9:37 PM [facility] Hematocrit 33.6(L) 34.8 - 46.1 % 09/24/2023 9:37 PM [facility] MCV 90.6 80.0 - 98.0 fL 09/24/2023 9:37 PM [facility] MCH 30.5 26.7 - 33.6 pg 09/24/2023 9:37 PM [facility] MCHC 33.6 31.7 - 36.3 g/dL 09/24/2023 9:37 PM [facility] RDW-CV 14.3 11.3 - 14.8 % 09/24/2023 9:37 PM [facility] Platelet Count 186 150 - 420 x10E9/L 09/24/2023 9:37 PM [facility] MPV 10.3 7.8 - 11.4 fL 09/24/2023 9:37 PM [facility] Neutrophil % 79.7(H) 41.0 - 74.0 % 09/24/2023 9:37 PM [facility] Lymphocyte % 9.4(L) 17.0 - 47.0 % 09/24/2023 9:37 PM [facility] Monocyte % 8.8 3.0 - 11.0 % 09/24/2023 9:37 PM [facility] Eosinophil % 1.1 0.0 - 7.0 % 09/24/2023 9:37 PM [facility] Basophil % 0.5 0.0 - 1.6 % 09/24/2023 9:37 PM [facility] Immature Granulocytes % 0.5 0.0 - 1.0 % 09/24/2023 9:37 PM [facility] Neutrophil Absolute 6.47 1.60 - 7.50 x10E9/L 09/24/2023 9:37 PM [facility] Lymphocyte Absolute 0.76(L) 1.00 - 4.40 x10E9/L 09/24/2023 9:37 PM [facility] Monocyte Absolute 0.71 0.15 - 1.00 x10E9/L 09/24/2023 9:37 PM [facility] Eosinophil Absolute 0.09 0.00 - 0.60 x10E9/L 09/24/2023 9:37 PM [facility] Basophil Absolute 0.04 0.00 - 0.13 x10E9/L 09/24/2023 9:37 PM [facility] Blood BLOOD SPECIMEN / Unknown Venipuncture / Unknown 09/24/2023 9:19 PM CDT 09/24/2023 9:25 PM CDT Kyle Menendez DO LAB - HEMATOLOGY ORD ERABLES [facility] [address] [place] [address], [facility] [phone] * (ABNORMAL) COMPREHENSIVE METABOLIC PANEL (09/24/2023 9:19 PM CDT) BUN 20 7 - 26 mg/dL 09/24/2023 9:53 PM T [facility] Creatinine 1.07(H) 0.56 - 0.96 mg/dL 09/24/2023 9:53 PM [facility] Sodium 141 136 - 145 mmol/L 09/24/2023 9:53 PM [facility] Potassium 3.6 3.5 - 4.5 mmol/L 09/24/2023 9:53 PM T [facility] Chloride 108(H) 98 - 107 mmol/L 09/24/2023 9:53 PM [facility] CO2 23 22 - 29 mmol/L 09/24/2023 9:53 PM [facility] Glucose 125(H) 70 - 115 mg/dL 09/24/2023 9:53 PM [facility] Calcium 8.6 8.4 - 10.2 mg/dL 09/24/2023 9:53 PM [facility] Protein Total 6.7 6.0 - 8.3 g/dL 09/24/2023 9:53 PM [facility] Albumin 3.4 3.4 - 5.0 g/dL 09/24/2023 9:53 PM [facility] Bilirubin Total 0.4 0.2 - 1.2 mg/dL 09/24/2023 9:53 PM [facility] Alkaline Phosphatase 76 40 - 150 U/L 09/24/2023 9:53 PM [facility] ALT 15 5 - 55 U/L 09/24/2023 9:53 PM [facility] AST 18 5 - 34 U/L 09/24/2023 9:53 PM [facility] Anion Gap 10 6 - 16 09/24/2023 9:53 PM [facility] BUN/Creatinine Ratio 19 7 - 23 09/24/2023 9:53 PM [facility] Osmolality Calculated 296(H) 275 - 295 mOsm/kg 09/24/2023 9:53 PM [facility] Albumin/Globulin Ratio 1.0(L) 1.1 - 2.3 09/24/2023 9:53 PM [facility] eGFR by CKD-EPI 55(L) >=90 mL/min/1.7 3 m2 09/24/2023 9:53 PM [facility] Blood BLOOD SPECIMEN / Unknown Venipuncture / Unknown 09/24/2023 9:19 PM CDT 09/24/2023 9:25 PM [facility] Kyle Menendez DO LAB - CHEMISTRY [facility] Organization Address City/State/ZIP Co de Phone Number [facility] [address] [place] [address], [facility] [phone] * EKG 12-LEAD (09/24/2023 9:06 PM CDT) Ventricular Rate 55 BPM [facility] Atrial Rate 55 BPM [facility] P-R Interval 226 ms [facility] QRS Duration ms 102 ms [facility] Q-T Interval ms 456 ms [facility] QTC Calculation (Bezet) 436 ms [facility] Calculated P [place] 76 degrees [facility] Calculated R [place] -26 degrees [facility] Calculated T [place] -8 degrees [facility] Interpretation EKG SINUS BRADYCARDIA WITH 1ST DEGREE A-V BLOCK MODERATE VOLTAGE CRITERIA FOR LVH, MAY BE NORMAL VARIANT ( R in aVL , Gwinner product ) NONSPECIFIC ST ABNORMALITY ABNORMAL ECG NO PREVIOUS ECGS AVAILABLE Confirmed by NGA RICHMOND MD ([id number]) on 09/29/2023 9:10:07 AM [facility] 09/24/2023 9:06 PM CDT 09/29/2023 9:10 AM CDT Kyle Menendez DO ECG ORDERABLES [facility] * CT Angio Brain Neck Stroke (09/24/2023 9:06 PM CDT) Anatomical Region Laterality Modality Head Computed Tomogra phy 09/24/2023 9:00 PM CDT Impressions 09/25/2023 12:33 AM CDT IMPRESSION: 1.Atherosclerotic disease of the extracranial and intracranial arterial vessels as above. 2.Focal decreased opacification of the distal left M2 inferior division concerning for partial occlusion. In addition, there is also cut off of one of the M3 branches distal to this concerning for occlusion. 3.No large arterial occlusions or significant stenoses identified neck. 4.Scattered groundglass and mild septal thickening partially visualized at the lung apices may represent edema. Viz.AI was used for large vessel occlusion detection. Report dictated by Reji Gillette MD (radiology therapist). Critical findings were discussed in detail with the patient's care provider, Dr. Arenas by Dr. Gillette via telephone at 9:35 PM on 09/24/2023 with readback comprehension and verification. IMansi MD have personally reviewed and interpreted this examination/study. > Interpreting Provider: Mansi Hart MD on 09/25/2023 12:33 AM Narrative 09/25/2023 12:33 AM CDT PROCEDURE: CT ANGIO BRAIN NECK STROKE, DATE/TIME OF EXAM: 09/24/2023 8:26 PM, LOCATION [facility] INDICATION: R40.4: Transient alteration of awareness ADDITIONAL CLINICAL INFORMATION: Ordering Provider Reason For Exam: Code stroke. Technologist Note: None. Additional: None. EXAMINATION: 1. Computed tomographic (CT) angiography of the head with contrast 2. CT angiography of the neck with contrast CONTRAST: 75 mL Isovue-370. TECHNIQUE: CT angiography of the head and neck was obtained after the uneventful administration of 75 mL Isovue-370 intravenous contrast. Three dimensional postprocessing was performed by the technologist and sent to the workstation for review. Stenosis measurements are based on NASCET criteria. CT dose reduction technique was used, including Automated Exposure Control. COMPARISON: CT brain stroke from the same day. FINDINGS: Non-angiographic findings: A separately dictated CT brain stroke from the same day contain non-angiographic findings within the head. Mild degenerative changes of the spine. There is multilevel degenerative change throughout the cervical spine. There are scattered groundglass and intralobular septal thickening of the partially visualized bilateral lung apices which may represent pulmonary edema. Angiographic findings: There is atherosclerotic disease of the aortic arch. There is a common origin of the innominate and left common carotid arteries from the aortic arch. There is atherosclerotic calcification of the innominate and subclavian arteries. There is atherosclerotic disease of the right carotid bifurcation and origin of the right internal carotid artery with less than 50 percent focal stenosis by NASCET criteria. The right common and internal carotid arteries otherwise appear normal. There is atherosclerotic disease of the left carotid bifurcation and origin of the left internal carotid artery with less than 50 percent focal stenosis by NASCET criteria. The left common and internal carotid arteries otherwise appear normal. Retropharyngeal course of the internal carotid arteries bilaterally. There is atherosclerotic disease involving the cervical vertebral arteries without significant focal stenosis. There is atherosclerotic disease involving the distal internal carotid arteries without significant focal stenosis. There is focal decreased opacification of the distal left M2 inferior division concerning for partial occlusion (series 6 image 109, series 7 image 52). There is contrast opacification of the M3 branches distal to this, however, there is vessel cut off of one of the M3 branches within the sylvian fissure (series 7 image 57-61). There is atherosclerotic disease involving the distal vertebral arteries without significant focal stenosis. The basilar artery and posterior cerebral arteries appear normal. No aneurysms, vascular occlusions, or intracranial stenoses are identified. Procedure Note Mansi Hart MD - 09/25/2023 PROCEDURE: CT ANGIO BRAIN NECK STROKE, DATE/TIME OF EXAM: :26 PM, LOCATION [facility] INDICATION: R40.4: Transient alteration of awareness ADDITIONAL CLINICAL INFORMATION: Ordering Provider Reason For Exam: Code stroke. Technologist Note: None. Additional: None. EXAMINATION: 1. Computed tomographic (CT) angiography of the head with contrast 2. CT angiography of the neck with contrast CONTRAST: 75 mL Isovue-370. TECHNIQUE: CT angiography of the head and neck was obtained after the uneventful administration of 75 mL Isovue-370 intravenous contrast.Three dimensional postprocessing was performed by the technologist and sent to the workstation for review. Stenosis measurements are based on NASCET criteria. CT dose reduction technique was used, including Automated Exposure Control. COMPARISON: CT brain stroke from the same day. FINDINGS: Non-angiographic findings: A separately dictated CT brain stroke from the same day contain non-angiographic findings within the head. Mild degenerative changes of the spine. There is multilevel degenerative change throughout the cervical spine. There are scattered groundglassand intralobular septal thickening of the partially visualized bilaterallung apices which may represent pulmonary edema. Angiographic findings: There is atherosclerotic disease of the aortic arch. There is a common origin of the innominate and left common carotid arteries from theaortic arch. There is atherosclerotic calcification of the innominate and subclavian arteries. There is atherosclerotic disease of the rightcarotid bifurcation and origin of the right internal carotid artery with lessthan 50 percent focal stenosis by NASCET criteria. The right common andinternal carotid arteries otherwise appear normal. There is atheroscleroticdisease of the left carotid bifurcation and origin of the left internal carotid artery with less than 50 percent focal stenosis by NASCET criteria. The left common and internal carotid arteries otherwise appear normal. Retropharyngeal course of the internal carotid arteries bilaterally.There is atherosclerotic disease involving the cervical vertebral arteries without significant focal stenosis. There is atherosclerotic disease involving the distal internal carotid arteries without significant focal stenosis. There is focal decreased opacification of the distal left M2 inferior division concerning for partial occlusion (series 6 image 109, series 7 image 52). There is contrast opacification of the M3 branches distal to this, however, thereis vessel cut off of one of the M3 branches within the sylvian fissure(series 7 image [id number]). There is atherosclerotic disease involving the distal vertebral arteries without significant focal stenosis. The basilarartery and posterior cerebral arteries appear normal. No aneurysms, vascular occlusions, or intracranial stenoses are identified. IMPRESSION: 1.Atherosclerotic disease of the extracranial and intracranial arterial vessels as above. 2.Focal decreased opacification of the distal left M2 inferior division concerning for partial occlusion. In addition, there is also cut off ofone of the M3 branches distal to this concerning for occlusion. 3.No large arterial occlusions or significant stenoses identified neck. 4.Scattered groundglass and mild septal thickening partially visualizedat the lung apices may represent edema. Viz.AI was used for large vessel occlusion detection. Report dictated by Reji Gillette MD (radiology therapist). Critical findings were discussed in detail with the patient's care provider, Dr. Arenas by Dr. Gillette via telephone at 9:35 PM on 09/24/2023 with readback comprehension and verification. IMansi MD have personally reviewed and interpretedthis examination/study. > Interpreting Provider: Mansi Hart MD on 09/25/2023 12:33 AM Kyle Menendez DO CT ORDERABLES * (ABNORMAL) CREATININE - POCT INTERFACED (09/24/2023 8:46 PM CDT) Creatinine POCT 1.19 0.30 - 1.30 mg/dL 09/24/2023 9:22 PM CDT [facility] eGFR 48(L) >=90 mL/min/1.7 3 m2 09/24/2023 9:22 PM CDT [facility] Blood BLOOD SPECIMEN / Unknown 09/24/2023 8:46 PM CDT 09/24/2023 9:22 PM CDT Kyle Gayathri Naylaboy LAB - POINT OF CARE ORDERABLES [place] [id number] [place] [address], [facility] [phone] * CT Brain Stroke (09/24/2023 8:28 PM CDT) Anatomical Region Laterality Modality Head Computed Tomogra phy 09/24/2023 8:40 PM CDT Impressions 09/24/2023 8:54 PM CDT IMPRESSION: Motion degraded exam. Within this limitation: 1.Findings compatible with evolving left MCA territory infarction, with transcortical hypoattenuation and loss of vargas-white matter differentiation involving the left frontoparietal and the cholo-insular left frontal lobe as well as the left insula and the adjacent left temporal lobe. 2.No evidence of hemorrhagic transformation.. Results of this exam were communicated with closed loop confirmation to Dr. Arenas by Dr. Hart on 09/24/2023 at 8:47 PM within it but comprehension and verification. Report dictated by Reji Gillette MD (radiology therapist). I, Mansi Hart MD have personally reviewed and interpreted this examination/study. > Interpreting Provider: Mansi Hart MD on 09/24/2023 8:54 PM Narrative 09/24/2023 8:54 PM CDT PROCEDURE: CT BRAIN STROKE, DATE/TIME OF EXAM: 09/24/2023 8:41 PM, LOCATION [facility] INDICATION: R40.4: Transient alteration of awareness EXAMINATION: Computed tomography (CT) of the head without contrast ADDITIONAL CLINICAL INFORMATION: Ordering Provider Reason For Exam: Stroke Technologist Note: None. Additional: Left gaze deviation, right upper extremity weakness and aphasia TECHNIQUE: CT of the head was performed without contrast according to standard protocol. CT dose reduction technique was used, including Automated Exposure Control. COMPARISON: No prior study is available for comparison at the time of this dictation. FINDINGS: The images are degraded due to motion artifacts. Within this limitations: No acute intra- or extra-axial fluid collections are identified. There is mild cerebral volume loss with associated ex vacuo ventricular dilatation. The basilar cisterns are patent. No mass effect or midline shift is seen. Transcortical hypoattenuation and loss of vargas-white matter differentiation involving the left frontoparietal, left temporal, left insula, and the cholo-insular left frontal lobe, compatible with evolving left MCA territory infarction. No evidence of hemorrhagic transformation at this time. Scattered foci of hypoattenuation in the bilateral basal ganglia and the ballotable periventricular white matter, which could represent a component of the small vessel ischemic disease or prior infarcts. Periventricular white matter hypoattenuation is indicative of chronic small vessel ischemic disease. There is vascular calcification of the carotid siphons and the there are V4 segments of the vertebral arteries. No acute calvarial fracture is identified. Other than bilateral cataract extractions, the orbits appear normal. There is mild paranasal sinus disease. The mastoid air cells are grossly clear. No soft tissue abnormality is identified. Procedure Note Mansi Hart MD - 09/24/2023 PROCEDURE: CT BRAIN STROKE, DATE/TIME OF EXAM: 09/24/2023 8:41 PM,LOCATION [facility] INDICATION: R40.4: Transient alteration of awareness EXAMINATION: Computed tomography (CT) of the head without contrast ADDITIONAL CLINICAL INFORMATION: Ordering Provider Reason For Exam: Stroke Technologist Note: None. Additional: Left gaze deviation, right upper extremity weakness and aphasia TECHNIQUE: CT of the head was performed without contrast according to standard protocol. CT dose reduction technique was used, including Automated Exposure Control. COMPARISON: No prior study is available for comparison at the time ofthis dictation. FINDINGS: The images are degraded due to motion artifacts. Within this limitations: No acute intra- or extra-axial fluid collections are identified. Thereis mild cerebral volume loss with associated ex vacuo ventriculardilatation. The basilar cisterns are patent. No mass effect or midline shift isseen. Transcortical hypoattenuation and loss of vargas-white matterdifferentiation involving the left frontoparietal, left temporal, left insula, and the cholo-insular left frontal lobe, compatible with evolving left MCAterritory infarction. No evidence of hemorrhagic transformation at this time. Scattered foci of hypoattenuation in the bilateral basal ganglia and the ballotable periventricular white matter, which could represent acomponent of the small vessel ischemic disease or prior infarcts. Periventricular white matter hypoattenuation is indicative of chronic small vesselischemic disease. There is vascular calcification of the carotid siphons and the there are V4 segments of the vertebral arteries. No acute calvarial fracture is identified. Other than bilateral cataract extractions, the orbits appear normal. There is mild paranasal sinus disease. The mastoid air cells are grossly clear. No soft tissue abnormality is identified. IMPRESSION: Motion degraded exam. Within this limitation: 1.Findings compatible with evolving left MCA territory infarction, with transcortical hypoattenuation and loss of vargas-white matterdifferentiation involving the left frontoparietal and the cholo-insular left frontal lobeas well as the left insula and the adjacent left temporal lobe. 2.No evidence of hemorrhagic transformation.. Results of this exam were communicated with closed loop confirmation toDr. Arenas by Dr. Hart on 09/24/2023 at 8:47 PM within it but comprehensionand verification. Report dictated by Reji Gillette MD (radiology therapist). I, Mansi Hart MD have personally reviewed and interpretedthis examination/study. > Interpreting Provider: Mansi Hart MD on 09/24/2023 8:54 PM Kyle Menendez DO CT ORDERABLES * XR CHEST 2VW (09/24/2023 8:03 PM CDT) Anatomical Region Laterality Modality Chest Radiographic [place] ging 09/24/2023 8:34 PM CDT Narrative 09/24/2023 11:02 PM CDT PROCEDURE: XR CHEST 2VW, DATE/TIME OF EXAM: 09/24/2023 8:03 PM, LOCATION [facility] INDICATION: R40.4: Transient alteration of awareness ADDITIONAL CLINICAL INFORMATION: Ordering Provider Reason For Exam: PNA? Comparison: No prior study is available for comparison at the time of this dictation. FINDINGS/IMPRESSION: There are diffuse interstitial and airspace opacities which may represent pulmonary edema or atypical infection. No discrete pleural effusion. Costophrenic angle blunting of left may represent pericardial fat. No pneumothorax. The cardiomediastinal silhouette is normal for portable technique. No displaced fractures visualized. Report dictated by Reji Gillette MD (radiology therapist). Phill Thompson MD have personally reviewed and interpreted this examination/study. > Interpreting Provider: Phill Dorado MD on 09/24/2023 11:02 PM Procedure Note Phill Dorado MD - 09/24/2023 PROCEDURE: XR CHEST 2VW, DATE/TIME OF EXAM: 09/24/2023 8:03 PM, LOCATION [facility] INDICATION: R40.4: Transient alteration of awareness ADDITIONAL CLINICAL INFORMATION: Ordering Provider Reason For Exam: PNA? Comparison: No prior study is available for comparison at the time ofthis dictation. FINDINGS/IMPRESSION: There are diffuse interstitial and airspace opacities which mayrepresent pulmonary edema or atypical infection. No discrete pleural effusion. Costophrenic angle blunting of left may represent pericardial fat. No pneumothorax. The cardiomediastinal silhouette is normal for portable technique. No displaced fractures visualized. Report dictated by Reji Gillette MD (radiology therapist). Phill Thompson MD have personally reviewed and interpreted this examination/study. > Interpreting Provider: Phill Dorado MD on 09/24/2023 11:02 PM Kyle Menendez DO [facility] Care Teams Corn Popper Relationship Specialty Start Date End Date Mono Felipe MD [facility] [facility] [address] [place] [address] PCP - General Family Medicine 11/10/23
[2024-04-10 15:09] LABS: Alanine Aminotransferase 16 U/L (6-35); Albumin Level 3.9 g/dL (3.5-5.1); Alkaline Phosphatase 96 U/L (38-126); Anion Gap 7 mmol/L (4-12); Aspartate Amino Transferase 22 U/L (14-36); Bilirubin,Total 0.7 mg/dL (0.2-1.3); Blood Urea Nitrogen 26 mg/dL (7-17); Calcium 9.4 mg/dL (8.4-10.2); Carbon Dioxide 29 mmol/L (22-30); Chloride 105 mmol/L (98-107); Estimated Glomerular Filt Rate 50; Glucose 92 mg/dL (65-110); Potassium 3.6 mmol/L (3.4-5.0); Sodium 141 mmol/L (137-145)
== END 2024-04-10 10:15 | disposition home or self-care (01) ==
LOC: ANHGOSHLAB 10:15
PROVIDERS: PCP Family Medicine; Visit Provider Family Medicine
DX: E87.6 Hypokalemia (principal); I10 Essential (primary) hypertension
CPT/HCPCS: 36415; 80053

== ENCOUNTER 2024-04-10 11:15 | Outpatient (RCR) | payer MEDICARE, SELFPAY ==
--- NOTE | 2024-02-22 07:56 | STOPPROG ---
Assessment and note entered by Lorena Bah, PATIENT ACCOUNTS COORDINATOR Assessment ST Clinical Summary PROGRESS NOTE The patient has been seen for 26 sessions of Speech Therapy addressing both word-finding and articulation due to higher-level aphasia. Patient reports that although she has seen and recognizes her improvements, she still does not feel her speech is within functional limits. Patient reports that the interaction with others not in her small group of friends causes more misarticulations and rather than working through her speech, she becomes more frustrated and then stops speaking. Patient states she mostly knows the word but not always how to say it, but also that she cannot get it out as fast as she had been in the past, that others become less patient and lose interest in speaking to her. Shani, patient's friend who has accompanied her to most sessions and helps her with her bills and appointments, also reported that patient has had an issue with ordering food at restaurants/drive- thru's and receiving the wrong order due to staff misunderstanding her. The [place] The[employer] Picture portion of the [facility] Diagnostic Aphasia Evaluation was presented today. Patient expressed a variety of actions and nouns along with descriptive phrases about the picture. She was noted to have one delay when thinking of a word but continued the sentence appropriately. She was asked to devise five sentences given five different words from 3-4 parts of speech (car, with, later, wash, and laugh). She completed produced five of five sentences accurately (prior to this, had produced only four of five sentences accurately). Additionally, she named 10/10 less familiar objects correctly (of note, previously she had named pyramid by saying myraquid however today, it was produced accurately. In November, patient she said sunnel then self- corrected to funnel. Today, she said collette-funner, funner, funnel , eventually self-correcting). As a result of current complaints, patient is requesting additional therapy to further address retrieving words under pressure and producing them intelligibly. Recommend patient receive an additional eight Speech Therapy visits focusing on higher-level word-finding and role-playing functional communication situations. Plan of Care Interventions Treatment of Speech,Treatment of Language ST Services Indicated Yes Treatment Frequency and 2x weekly for an additional 8 visits. Duration These treatments will address the objective and functional deficits as defined above. The patient will be advanced safely and appropriately in order for the patient to progress towards his/her prior level of function. Additional exercises will be introduced and as well as a comprehensive home exercise program upon discharge, if needed, ?to ensure carryover of functional gains achieved in the clinic. This treatment plan has been reviewed and agreement upon by the patient.
--- NOTE | 2024-04-19 14:03 | PCSTNOTE ---
Patient called & cancelled scheduled appointment this date due to receiving bills and decision that she cannot afford to continue treatment at this time. Patient wishes to cancel future appointments and discharge from skilled at this time.
--- NOTE | 2024-04-24 12:06 | BUSTOPDC ---
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 [facility] and remained there for about one week where she underwent rehabilitation. She then received three weeks of Home Health therapy focusing on all deficits. Patient continues to report that she notices improvements in her overall speech skills. She continues to have difficulty producing some words within conversation along with difficulty speaking on the phone regarding finances and medical information. Patient wishes to be discharged from [facility] at this time due to financial reasons. Reported Pain Level Pain Score 0: Self Report Pain Score 0: Self Report Pain Score No Pain: [place] Pain Score 0: Self Report Pain Score 0: Self Report Pain Score 0: Self Report Pain Score 0: Self Report Pain Score 0: Self Report Assessment ST Clinical Summary PROGRESS NOTE 02-21-24 completed by another ENTERPRISE RESOURCE ANALYST with results below: The patient has been seen for 26 sessions of Speech Therapy addressing both word-finding and articulation due to higher-level aphasia. Patient reports that although she has seen and recognizes her improvements, she still does not feel her speech is within functional limits. Patient reports that the interaction with others not in her small group of friends causes more misarticulations and rather than working through her speech, she becomes more frustrated and then stops speaking. Patient states she mostly knows the word but not always how to say it, but also that she cannot get it out as fast as she had been in the past, that others become less patient and lose interest in speaking to her. Shani, patient's friend who has accompanied her to most sessions and helps her with her bills and appointments, also reported that patient has had an issue with ordering food at restaurants/drive- thru's and receiving the wrong order due to staff misunderstanding her. The Cookie Theft Picture portion of the [facility]phasia Evaluation was presented today. Patient expressed a variety of actions and nouns along with descriptive phrases about the picture. She was noted to have one delay when thinking of a word but continued the sentence appropriately. She was asked to devise five sentences given five different words from 3-4 parts of speech (car, with, later, wash, and laugh). She completed produced five of five sentences accurately (prior to this, had produced only four of five sentences accurately). Additionally, she named 10/10 less familiar objects correctly (of note, previously she had named pyramid by saying myraquid however today, it was produced accurately. In November, patient she said sunnel then self- corrected to funnel. Today, she said collette-funner , funner, funnel , eventually self-correcting). As a result of current complaints, patient is requesting additional therapy to further address retrieving words under pressure and producing them intelligibly. Recommend patient receive an additional eight Speech Therapy visits focusing on higher-level word-finding and role-playing functional communication situations. Current skills: Patient was seen for an additional [address] treatment sessions to target higher level word finding skills and fluency of speech within conversation and on the phone. Patient reported that she continues to have difficulty attempting to speak on the phone regarding financial reasons and medical and requires her friend to assist her in those phone calls. Various areas of complex speech were targeted during the previous 4 sessions to target fluency of speech with some improvements noted. Patient contacted facility and requested to be discharged with final treatment session on 04-10-24 due to financial reasons. Discharge planning was unable to be completed due to patient calling and cancelling all future skilled ST treatment sessions. Patient will be discharged from skilled ST at this time. Plan of Care Interventions Treatment of Speech,Treatment of Language Treatment Frequency and Discharged from skilled ST at this time. Duration
== END 2024-04-24 13:05 | disposition home or self-care (01) ==
LOC: ANHST 11:15
PROVIDERS: PCP Family Medicine; Visit Provider Family Medicine
DX: I69.320 Aphasia following cerebral infarction (principal)
CPT/HCPCS: 92507

== ENCOUNTER 2024-08-24 10:42 | Outpatient (CLI) | payer MEDICARE, SELFPAY ==
--- OUTSIDE RECORDS SUMMARY | 2024-08-24 10:46 | XMS_ITS | Clinical Summary ---
Author Organization [facility] Address [address] [facility] [place] [address] Care Team Providers Care Rn Manager Name Role Phone Mono Felipe MD Primary Care Provider Fermin Chappell MD Unavailable [phone] Allergies No known active allergies Medications allopurinol (ZYLOPRIM) 300 MG Tablet Take 300 mg by mouth. 06/10/2022 Active omeprazole (PriLOSEC) 40 MG CAPSULE DELAYED RELEASE Take 40 mg by mouth daily. 05/18/2023 Active carvedilol (COREG) 12.5 MG Tablet Take 12.5 mg by mouth 2 times daily. 12/28/2023 Active atorvastatin (LIPITOR) 40 MG Tablet Take 40 mg by mouth daily. 09/30/2023 Active olmesartan-hydro chlorothiazide (BENICAR HCT) 40-25 MG Tablet Take 1 Tablet by mouth daily. 05/19/2024 Active levothyroxine (SYNTHROID) 50 MCG Tablet Take 50 mcg by mouth daily. 12/21/2022 Active potassium chloride CR (KLORCON) 10 MEQ Tablet Controlled Release Take 10 mEq by mouth daily. 04/11/2024 Active Cholecalciferol (Vitamin D3) 50 mcg Tablet Take 2,000 Units by mouth. 09/23/2022 Active amLODIPine (NORVASC) 10 MG Tablet Take 10 mg by mouth daily. 05/02/2024 Active aspirin 81 MG Chewable Tablet Take 81 mg by mouth. 09/30/2023 Active Encounters Date Type Department Care Team Description 08/17/2024 11:00 AM CDT Office Visit [facility] - Cardiology - [address] [place] [address] Fermin Chappell MD Nonrheumatic aortic valve stenosis (Primary Dx); Cerebrovascular accident (CVA), unspecified mechanism (HCC) Discharge Disposition: Discharged to home or Selfcare 08/17/2024 Travel from Last 3 Months Social History Tobacco Use Types Packs/Day Years Used Date Smoking Tobacco: Never Assessed Comments Unknown Sex and Gender Information Value Date Recorded Sex Assigned at Not on file Legal Sex Female 3:15 PM CDT Gender Identity Not on file Sexual Orientation Not on file Last Filed Vital Signs Vital Sign Reading Time Taken Comments Blood Pressure 122/64 08/17/2024 10:57 AM CDT Pulse 60 08/17/2024 10:57 AM CDT Temperature 36.3 C (97.4 F) 08/17/2024 10:57 AM CDT Respiratory Rate 16 08/17/2024 10:57 AM CDT Oxygen Saturation 96% 08/17/2024 10:57 AM CDT Inhaled Oxygen Concentration - - Weight - - Height 167.6 cm (5' 6) 08/17/2024 10:57 AM CDT Body Mass Index - - Plan of Treatment Upcoming Encounters Date Type Department Care Team (Late st Contact Info) Description 02/06/2025 10:30 AM DELINQUENCY COUNSELOR Office Visit [facility] - Cardiology - [address] [address] [place] [address] Fermin Chappell MD [address] [address] Health Maintenance Due Date Last Done Comments DEXA Bone Density 1950 Hepatitis C Virus (HCV) Screening 1950 Mammogram 1950 TdaP Immunization 1950 Cologuard 1994 Colonoscopy 1994 Colorectal Cancer Screening 1994 Immunochemical Fecal Occult Blood 1994 Zoster Immunization (1 of 2) 11/13/1999 SARS-COV-2 Immunization ( season) 2023 12/03/2022, 03/05/2022, 05/29/2021, Additional history exists Respiratory Syncytial Virus (RSV) Immunization (Adult) (1 - 1-dose 75+ series) 2024 Pneumococcal Immunization (50+ years) Completed 10/21/2023, 11/26/2015 Influenza Immunization Completed , 12/03/2022, 01/23/2022, Additional history exists Hepatitis B Immunization Aged Out No longer eligible based on patient's age to complete this topic Human Papillomavirus (HPV) Immunization Aged Out No longer eligible based on patient's age to complete this topic Meningococcal Immunization (ACWY) Aged Out No longer eligible based on patient's age to complete this topic Rotavirus Immunization Aged Out No lo nger eligible based on patient's age to complete this topic Insurance MEDICARE C [employer] Care Teams Rn Manager Relationship Specialty Start Date End Date Mono Felipe MD [address] [place] [address] [address] [place] [address] PCP - General Family Medicine 08/17/24 Fermin Chappell MD [facility] [address] [place] [address] Consulting Physician Cardiology 08/18/24
--- OUTSIDE RECORDS SUMMARY | 2024-08-24 10:46 | XMS_ITS | Clinical Summary ---
Author Organization [facility] Address [address] [place] [address] Care Team Providers Care Chip Mucker Name Role Phone Mono Felipe MD Primary Care Provider Source Comments [facility],non-owned Affiliates and Associated Physician Practices is amultiple site organization consisting of ambulatory clinics and hospital sitesin [place], [place] and [place]. This disclosure is being madepursuant to the Care Everywhere program and may not contain all information available regarding this patient. Last updated 17.[facility] Allergies No known active allergies Medications * Be aware that medications may not be up to date on this document. Alwaysverify current medications with the patient. cyanocobalamin (Vitamin B-12) 1000 MCG tablet Take 1 (one) tablet by mouth once daily Active escitalopram (Lexapro) 5 MG tablet Take 0.5 (one-half) tablet by mouth once daily Active Vitamin D3 (Cholecalcifero l) 50 MCG (1999) capsule Take 1 (one) capsule by mouth once daily Active levothyroxine (Synthroid) 50 MCG tablet Take 1 (one) tablet by mouth daily before breakfast Active allopurinol (Zyloprim) 300 MG tablet Take 1 (one) tablet by mouth once daily Active amLODIPine (Norvasc) 10 MG tablet Take 1 (one) tablet by mouth once daily Active olmesartan-hydr oCHLOROthiazide (Benicar HCT) 40-25 MG tablet Take 1 (one) tablet by mouth once daily Active pantoprazole EC (Protonix) 20 MG tablet Take 1 (one) tablet by mouth once daily Active carvedilol (Coreg) 25 MG tablet Take 0.5 (one-half) tablet by mouth 2 times daily with morning and evening meal Active aspirin (Aspirin) 81 MG chew tablet CHEW AND SWALLOW 1 TABLET BY MOUTH ONCE DAILY 60 tablet 4 09/30/19 25 Active atorvastatin (Lipitor) 40 MG tablet TAKE ONE TABLET BY MOUTH AT BEDTIME 60 tablet 4 09/30/19 25 Active potassium chloride ER (Klor-Con M) 10 MEQ tablet Take 1 (one) tablet by mouth once daily Active Active Problems Problem Noted Date Diagnosed Date Essential hypertension 12/06/2023 Mixed hyperlipidemia 12/06/2023 Acute ischemic left MCA stroke 09/24/2023 Transient alteration of awareness 09/24/2023 Aphasia 09/24/2023 Encounters Date Type Department Care Team Description 07/20/2024 1:10 AM CDT Clinical Support [facility] - Cardiology [address] [place] [phone] Acute ischemic left MCA stroke (HCC) ; Status post placement of implantable loop recorder 06/17/2024 1:00 AM CDT Clinical Support [facility] - Cardiology [address] [place] [phone] Acute ischemic left MCA stroke (HCC) from [...] Recorded Patient Health Questionnaire-2 Score 0 09/30/2023 [facility] - Occupational Stress [...] place to sleep or slept in a intermediate (including now)? No 09/27/2023 Comments Unknown Sex and Gender Information Value Date Recorded Sex Assigned at Not on file Legal Sex Female 6:56 PM CDT Gender Identity Not on file Sexual Orientation Not on file Last Filed Vital Signs Vital Sign Reading Time Taken Comments Blood Pressure 103/57 05/10/2024 10:24 AM CDT Pulse 49 05/10/2024 10:24 AM CDT Temperature 36.7 C (98.1 F) 09/30/2023 12:07 PM CDT Respiratory Rate 16 05/10/2024 10:24 AM CDT Oxygen Saturation 97% 12/06/2023 1:46 PM CDT Inhaled Oxygen Concentration - - Weight 147.4 kg (325 lb) 12/06/2023 1:46 PM CDT Height 167.6 cm (5' 6) 12/06/2023 1:46 PM CDT Body Mass Index 52.46 12/06/2023 1:46 PM CDT Plan of Treatment Upcoming Encounters Date Type Department Care Team (Late st Contact Info) Description 09/28/2024 1:10 AM CDT Clinical Support [facility] - Cardiology [address] [facility] [address] [place] [phone] 11/02/2024 1:10 AM CDT Clinical Support [facility] - Cardiology [address] [place] [address] [place] [phone] Health Maintenance Due Date Last Done Comments [...] 2009 COVID-19 VACCINE (2023-2 5 season) 2023 DEPRESSION SCREENING 02/23/2024 09/24/2023 MEDICARE AWV CALENDAR YEAR 2024 INFLUENZA VACCINE (Season Ended) 2024 HEPATITIS B VACCINE Aged Out No longe r eligible based on patient's age to complete this topic HIB VACCINE Aged Out No longer eligi ble based on patient's age to complete this topic HPV VACCINE Aged Out No longer eligi ble based on patient's age to complete this topic MENINGOCOCCAL (Group B) VACC INE SHARED DECISION-MAKING Aged Out No longer eligibl e based on patient's age to complete this topic MENINGOCOCCAL GROUPS A/C/Y/W VACCINE Aged Out No longer eligible b ased on patient's age to complete this topic Medical Devices Implanted Type Area Bisque Ware Dipper Device Identifier Shelf Expiration Date Model / Serial / Lot Sys Crd Mntr Rvl Linq Ii - [id number] Implanted:Qty: 1 on 09/29/2023 by Kathy Richmond MD at [facility] [id number] 02/09/2025 [id number] SYS / [id number] / [id number] 3 Description:Loop Implant R-wave: 0.45 Procedures Procedure Name Priority Date/Time Associated Diagnosis Comments [place] DEVICE INTERROGAT REMOTE Routine 08/12/2024 7:59 PM CDT Acute ischemic left MCA stroke (HCC) Status post placement of implantable loop recorder [place] DEVICE INTERROGAT REMOTE Routine 06/22/2024 8:02 PM CDT Acute ischemic left MCA stroke (HCC) CARDIAC PROCEDURE ORDER 06/13/2024 CARDIAC PROCEDURE ORDER 06/13/2024 from Last 3 Months Results * [place] [facility] DEVICE INTERROGAT REMOTE (08/12/2024 7:59 PM CDT) Pj Ramos MD - 08/12/2024 7:59 PM CDT Pj Boles MD 08/12/2024 8:00 PM Remote Interrogation: Pertinent Findings: Device function within normal limits. No significant events. Pj Boles MD Cardiac Electrophysiology us Pj Boles MD PROCEDURE/MINOR SURGICAL ORDERAB LES Final Result * [place] [facility] DEVICE INTERROGAT REMOTE (06/22/2024 8:02 PM CDT) Pj Ramos MD - 06/22/2024 8:02 PM CDT Pj Boles MD 06/22/2024 8:04 PM Remote Interrogation: Pertinent Findings: Device function within normal limits. No events. Tachy event are due to noise. Pj Boles MD Cardiac Electrophysiology us Pj Boles MD PROCEDURE/MINOR SURGICAL ORDERAB LES Final Result * CARDIAC PROCEDURE ORDER (06/13/2024) Only the most recent of2 resultswithin the time period is included. Narrative 06/13/2024 Ordered by an unspecified provider. us Scanned Document CARDIAC SERVICES ORDERABLES Fin al Result from Last 3 Months Insurance [employer] MEDICARE ADV Advance Directives * Full Code (Latest Code Status on File) Date Activated Date Inactivated Comments 09/24/2023 8:34 PM 09/30/2023 4:13 PM Care Teams Chip Mucker Relationship Specialty Start Date End Date Mono Felipe MD [address] [place] [address] PCP - General Family Medicine 11/10/23
--- OUTSIDE RECORDS SUMMARY | 2024-08-24 10:46 | XMS_ITS | Clinical Summary ---
Author Organization [facility] Address [address] [place]: Monica Prelude [place]T [place] [phone] Care Team Providers Care Warning Coordination Meteorologist Name Role Phone Unavailable Primary Care Provider Unavailabl e Medications methylPREDNISo lone (MEDROL DOSPACK) 4 mg Tablets, Dose Pack TAKE DIRECTED ON PACKAGE. TAKE WITH FOOD. 21 Tablet 10/06/2021 9:26 AM CDT 2 Active allopurinoL (ZYLOPRIM) 300 mg tablet Take 1 Tablet (300 mg) by mouth daily. 90 Tablet 1 09/23/2022 5:08 PM CDT 3 Active cholecalcifero l, Vitamin D3, 50 mcg (2,000 unit) Tablet Take 1 Tablet (2,000 Units) by mouth daily. 90 Tablet 2 04/23/2023 2:25 PM GREY PERCHER 3 Active carvediloL (COREG) 25 mg tablet Take 0.5 Tablets (12.5 mg) by mouth every 12 hours with a meal/food. 90 Tablet 1 04/23/2023 2:25 PM GREY PERCHER 3 Active levothyroxine 50 mcg tablet Take 1 Tablet (50 mcg) by mouth daily. 90 Tablet 1 04/23/2023 2:25 PM GREY PERCHER 3 Active ezetimibe-simv astatin (VYTORIN) 10-40 mg tablet Take 1 Tablet by mouth daily. 30 Tablet 04/23/2023 2:25 PM GREY PERCHER 3 Active omeprazole (PriLOSEC) 40 mg Capsule, Delayed Release(E.C.) Take 1 Capsule (40 mg) by mouth daily in the morning, 30 minutes before morning meal 90 Capsule 4 07/30/2023 3:16 PM CDT 4 Active carvediloL (COREG) 25 mg tablet Take 0.5 Tablets (12.5 mg) by mouth every 12 hours. Must administer with meal/food 90 Tablet 1 11/30/2023 12:18 PM CDT 4 Active cyanocobalamin (VITAMIN B-12) 1,000 mcg Tablet, Sublingual Dissolve 1 tablet by mouth once daily 90 Tablet 1 4 Active ezetimibe-simv astatin (VYTORIN) 10-40 mg tablet Take 1 Tablet by mouth daily. Due for an appointment. Last refill until seen. 30 Tablet 07/23/2023 3:34 PM CDT 4 Active levothyroxine 50 mcg tablet Take 1 Tablet (50 mcg) by mouth daily. 90 Tablet 1 12/31/2023 1:00 PM GREY PERCHER 4 Active aspirin (LEILA CHEWABLE) 81 mg [...] daily as directed 30 Each 4 Active carvediloL (COREG) 12.5 mg tablet Take 1 tablet (12.5 mg) by mouth every 12 hours; must administer with a meal/food 180 Tablet 2 06/12/2024 6:05 PM CDT 4 Active escitalopram oxalate (LEXAPRO) 5 mg tablet Take one tablet (5 mg) orally daily 90 Tablet 1 4 Active pantoprazole (PROTONIX) 20 mg Tablet, Delayed Release (E.C.) Take 1 Tablet (20 mg) by mouth daily in the morning. 90 Tablet 1 05/05/2024 11:28 AM CDT 4 Active atorvastatin (LIPITOR) 40 mg tablet Take 1 Tablet (40 mg) by mouth daily at bedtime. 100 Tablet 1 08/03/2024 6:00 PM CDT 4 Active levothyroxine 50 mcg tablet Take 1 Tablet (50 mcg) by mouth daily. 90 Tablet 1 07/12/2024 6:32 PM CDT 5 Active potassium CHLORIDE (KLOR-CON) 10 mEq Extended Release tablet Take 1 Tablet (10 mEq) by mouth daily. 90 Tablet 1 07/12/2024 6:32 PM CDT 5 Active amLODIPine (NORVASC) 10 mg tablet Take 1 Tablet (10 mg) by mouth daily. 90 Tablet 1 07/12/2024 6:32 PM CDT 5 Active olmesartan-hyd roCHLOROthiazi de (BENICAR-HCT) 40-25 mg tablet Take 1 Tablet by mouth daily. 90 Tablet 1 05/25/2024 4:43 PM CDT 5 Active cholecalcifero l, Vitamin D3, 50 mcg (2,000 unit) Tablet Take 1 Tablet (2,000 Units) by mouth daily. 90 Tablet 3 05/24/2024 12:48 PM CDT 5 Active omeprazole (PriLOSEC) 40 mg Capsule, Delayed Release(E.C.) Take 1 Capsule (40 mg) by mouth daily 30 minutes before breakfast. 90 Capsule 4 07/01/2024 4:55 PM CDT 5 Active sodium sulfate-potass ium CHLORIDE-magne sium SULFATE (Sutab) 1.479-0.188- 0.225 gram Tablet TAKE DIRECTED ON PACKAGE. FOLLOW INSTRUCTIONS GIVEN TO YOU BY PROVIDER. 24 Tablet 5 Active allopurinoL (ZYLOPRIM) 300 mg tablet Take 1 Tablet (300 mg) by mouth daily. 90 Tablet 1 08/08/2024 3:25 PM CDT 5 Active pantoprazole (PROTONIX) 20 mg Tablet, Delayed Release (E.C.) Take 1 Tablet (20 mg) by mouth daily in the morning. 90 Tablet 1 5 Active triamcinolone acetonide (KENALOG) 0.5 % Cream APPLY TO AFFECTED AREA(S) TWO TIMES DAILY DIRECTED. 15 Gram 1 5 Active allopurinoL (ZYLOPRIM) 300 mg tablet Take 1 Tablet (300 mg) by mouth daily. 90 Tablet 1 05/24/2024 12:48 PM CDT 5 025 Discontin ued(Reord er) Social History Tobacco Use Types Packs/Day Years [...] Colonography Q 5 years 1994 PNEUMOCOCCAL VACCINE 50+ YEARS (1 of 1 - PCV) 11/13/19 00 ZOSTER VACCINE (1 of 2) 11/13/1999 OSTEOPOROSIS SCREENING 2014 INFLUENZA VACCINE (#1) 2024 RSV VACCINE (60+ or ) (1 - 1-dose 75+ series) 2024 Insurance RX AETNA Medicare Part D RX DECKER PLANS (INTERNAL) [facility] Internal Plans
--- OUTSIDE RECORDS SUMMARY | 2024-08-24 10:46 | XMS_ITS | Clinical Summary ---
Author Organization [facility] Address [address] [place] [id number] Care Team Providers Care Oil Exploration Engineer Name Role Phone Unavailable Primary Care Provider [...] 1 - Tdap) 1968 Mammogram Screening 1989 Pneumococcal Vaccine: 50+ Ye ars (1 of 1 - PCV) 11/13/1999 Zoster Vaccines (1 of 2) 11/13/1999 Dexa Scan (General) 2014 COVID-19 Vaccine ( - 2023-2 5 season) 2023 RSV Immunization or 60+ Years (1 [...]
[2024-08-24 12:48] LABS: Hematocrit 36.7 % (37.0-47.0); Hemoglobin 11.5 g/dL (12.0-15.0); Immature Granulocyte Percent A 0.4 % (0-0.5); Lymphocytes Absolute Auto 0.87 K/mm3 (0.9-3.2); Mean Corpuscular HGB Conc 31.3 g/dl (32-36); Mean Corpuscular Hemoglobin 29.6 pg (26-34); Mean Corpuscular Volume 94.6 fl (80-100); Nucleated Red Blood Cells Absolute Auto 0.000 K/mm3 (0.0-0.012); Nucleated Red Blood Cells Perc 0.0 % (0.0-0.2); Platelet Count Result 178 k/mm3 (150-375); Red Blood Count 3.88 M/mm3 (4.2-5.4); White Blood Count 5.1 K/mm3 (4.5-10.0)
[2024-08-24 12:58] LABS: Alanine Aminotransferase 14 U/L (6-35); Albumin Level 4.0 g/dL (3.5-5.1); Alkaline Phosphatase 97 U/L (38-126); Anion Gap 9 mmol/L (4-12); Aspartate Amino Transferase 37 U/L (14-36); Bilirubin,Total 0.6 mg/dL (0.2-1.3); Blood Urea Nitrogen 28 mg/dL (7-17); Calcium 9.7 mg/dL (8.4-10.2); Carbon Dioxide 26 mmol/L (22-30); Chloride 105 mmol/L (98-107); Estimated Glomerular Filt Rate 43; Glucose 98 mg/dL (65-110); Potassium 4.0 mmol/L (3.4-5.0); Sodium 140 mmol/L (137-145); Total Protein 7.2 g/dL (6.3-8.2); Uric Acid 5.8 mg/dL (2.5-7.5)
[2024-08-24 13:10] LABS: Iron 68 ug/dL (37-170)
[2024-08-24 13:21] LABS: Percent Iron Saturation 22 % (20-50)
[2024-08-24 13:47] LABS: Thyroid Stimulating Hormone Reflex 3.860 uIU/mL (0.465-4.68)
[2024-08-24 13:50] LABS: Ferritin 141.00 ng/mL (11.1-264)
[2024-08-24 14:02] LABS: Vitamin B12 983.0 pg/mL (239-931)
[2024-08-24 14:28] LABS: Hemoglobin A1C 5.5 % (<5.7)
== END 2024-08-24 10:43 | disposition home or self-care (01) ==
PROVIDERS: PCP Family Medicine; Visit Provider Family Medicine
DX: E03.9 Hypothyroidism, unspecified (principal); D64.9 Anemia, unspecified; I10 Essential (primary) hypertension; R73.03 Prediabetes; M10.00 Idiopathic gout, unspecified site
CPT/HCPCS: 36415; 80053; 82607; 82728; 82746; 83036; 83540; 83550; 84443; 84550; 85025

== ENCOUNTER 2024-11-30 09:00 | Outpatient (RCR) | payer MEDICARE, SELFPAY ==
--- NOTE | 2024-09-06 12:01 | STOPEVAL1 ---
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 The patient reports increased difficulty speaking with others, relaying information on the phone, and being able to express herself clearly. She states it takes her longer to process lengthy information presented to her by others. Reported Pain Level Pain Score 0: Self Report Assessment ST Clinical Summary The patient is a 73 yr old female referred for speech therapy services secondary to deficits persisting following a CVA in November of 2023. The patient reports increased difficulty speaking with others, relaying information on the phone, and being able to express herself clearly. She states it takes her longer to process lengthy information presented to her by others. The patient was administered the [facility] Speech and Language Communication Evaluation. Areas assessed included auditory comprehension, verbal expression, reading comprehension, and graphic expression. The patient demonstrated functional graphic and reading comprehension although requiring extra time to formulate written responses. Verbal expression: Mild to moderate deficits secondary to mild word retrieval deficits ,moderate deficits for thought organization, and moderate fluency impairment especially noticeable at the sentence/conversation level. Auditory Comprehension: Mild deficits for lengthy or complex information secondary to auditory processing to be able process information fully and recall to respond timely. Recommend Speech services 1x weekly x 10 visits to address compensatory techniques to improve verbal expression, fluency, and auditory processing. Plan of Care Interventions Treatment of Speech,Treatment of Language ST Services Indicated Yes These treatments will address the objective and functional deficits as defined above. The patient will be advanced safely and appropriately in order for the patient to progress towards his/her prior level of function. Additional exercises will be introduced and as well as a comprehensive home exercise program upon discharge, if needed, ?to ensure carryover of functional gains achieved in the clinic. This treatment plan has been reviewed and agreement upon by the patient.
--- NOTE | 2024-09-06 12:04 | OPREHPOC ---
Outpatient Therapy Plan of Care This is a Multidisciplinary Plan of Care that may contain components documented by all disciplines (PT, OT, and ST.) ST Goal 1 Goal / Goal Update The patient will participate in home programming to improve carry over/generalization of skills to the home environment. Target Visit [address] Problem #[address] Goal 1 Goal / Goal Update Verbal Expression 1. The patient will formulate sentence responses with 85% fluent speech using provided compensatory techniques and minimal cues. 2. The patient will complete complex word finding activities with 85% accuracy using provided compensatory techniques and minimal cues. 3. The patient will complete 5-7 simple conversational speech tasks with 85% fluent speech using provided compensatory techniques and minimal cues. 4. The patient will be provided a HEP Target Visit [address] Problem #[address] Goal 1 Goal / Goal Update Auditory Comprehension: 1.The patient will process and comprehend complex paragraph length information with 90% accuracy and minimal cues. Target Visit 10
--- NOTE | 2024-11-01 11:30 | PCSTNOTE ---
Patient called & cancelled scheduled appointment this date due to car needing repaired/no transportation
--- NOTE | 2024-11-08 12:25 | OPREHPOC ---
Outpatient Therapy Plan of Care This is a Multidisciplinary Plan of Care that may contain components documented by all disciplines (PT, OT, and ST.) ST Goal 1 Goal / Goal Update The patient will participate in home programming to improve carry over/generalization of skills to the home environment. Target Visit [address] Problem 2 ST Problem #[address] Goal 1 Goal / Goal Update Verbal Expression 1. The patient will formulate sentence responses 85% fluent speech using provided compensatory techniques minimal cues. 11-08-24 Update: Completing with 75-80% accuracy with varying phonemes 2. The patient will complete complex word finding activities with 85% accuracy using provided compensatory techniques minimal cues. 11-08-24 Update: Goal met 90% accuracy minimal cues to independent. 3. The patient will complete 5-7 simple conversation tasks with 85% fluent speech using provided compensatory techniques and minimal cues. 11-08-24 Update: Completing 4-5 simple conversation exchanges fluent 80% of the time with techniques. 4. The patient will be provided a HEP 11-08-24 update: Goal Met Target Visit [address] Goal 2 Goal / Goal Update 1. The patient will formulate sentence responses 85% fluent for t/g k/d and s/sh with reduced palatal and velar fronting speech using compensatory techniques minimal cues 2. The patient will complete 5-7 simple conversation tasks with 85% fluent speech using provided compensatory techniques and minimal cues. Target Visit [address] Problem #[address] Goal 1 Goal / Goal Update Auditory Comprehension: 1. the patient will process and comprehend complex paragraph length information with 90% accuracy and minimal cues. 11-08-24 Update: Goal Met 100% independent Target Visit 10 Progress Met
--- NOTE | 2024-11-08 12:25 | STOPEVAL1 ---
Assessment and note entered by Mary Persaud LABORER CARPENTRY DOCK Evaluation Information Assessment Status Re-evaluation Reported Pain Level Pain Score 0: Self Report Assessment ST Clinical Summary Initial Evaluation: The patient is a 73 yr old female referred for speech therapy services secondary to deficits persisting following a CVA in November of 2023. The patient reports increased difficulty speaking with others, relaying information on the phone, and being able to express herself clearly. She states it takes her longer to process lengthy information presented to her by others. The patient was administered the [facility] Speech and Language Communication Evaluation. Areas assessed included auditory comprehension, verbal expression, reading comprehension, and graphic expression. The patient demonstrated functional graphic and reading comprehension although requiring extra time formulate written responses. Verbal expression: Mild to moderate deficits secondary to mild word retrieval deficits , moderate deficits for thought organization and fluency at the sentence/conversation level. Auditory Comprehension: Mild deficits for lengthy or complex information secondary to auditory processing to to process information fully and recall. Recommend Speech services 1x weekly x 10 visits to address compensatory techniques to improve verbal expression, fluency, and auditory processing. Re-Evaluation: The patient was re-evaluated and administered the [facility] Communication Evaluation. Results were as follows: Auditory comprehension was within normal limits for direction following, yes/no questions, and complex paragraph length information. Verbal Expression: Word Retrieval was within normal limits for naming common and abstract items. Mild to moderate deficits were noted for the following items with fluency of speech. The greatest deficit remains with fluency in simple and complex conversation exchanges due to noted velar and palatal fronting with sound substitution primarily with minimal pairs for k/g, t/d, s/sh, and s/z. Completed 70-75 % accuracy in words and sentences. Recommend: Outpatient speech therapy services 1x week x 10 visits to address remaining deficits with fluency for self monitoring and correction. Plan of Care Interventions Treatment of Speech,Treatment of Language, Treatment for Cognitive Function ST Services Indicated Yes Treatment Frequency and 1x week x 10 visits. Duration These treatments will address the objective and functional deficits as defined above. The patient will be advanced safely and appropriately in order for the patient to progress towards his/her prior level of function. Additional exercises will be introduced and as well as a comprehensive home exercise program upon discharge, if needed, ?to ensure carryover of functional gains achieved in the clinic. This treatment plan has been reviewed and agreement upon by the patient.
--- NOTE | 2024-11-16 10:38 | PCSTNOTE ---
Addendum entered by Mary Persaud IN FILE OPERATOR 11/16/24 15:24: Patient had called and canceled 11/15/24 message found Original Note: Patient did not show up for scheduled appointment this date.
== END 2024-12-05 23:59 | disposition home or self-care (01) ==
LOC: ANHST 09:00
PROVIDERS: PCP Family Medicine; Visit Provider Family Medicine
DX: R47.02 Dysphasia (principal); I63.512 Cerebral infarction due to unspecified occlusion or stenosis of left middle cerebral artery
CPT/HCPCS: 92507; 92523

== ENCOUNTER 2024-12-03 09:46 | Emergency (ER) | payer MEDICARE, SELFPAY ==
[2024-12-03] VITALS (77 sets, daily range): BP systolic 86–149; BP diastolic 48–101; PULSE 49–79; RESP 14–20; TEMP 35.4–37.7; O2SAT 95–100
--- NOTE | ~2024-12-03 | CT_ITS ---
EXAMINATION: CTA brain carotid DATE: 12/03/2024 10:51 INDICATION: Dysarthria. Seizure. TECHNIQUE: Computed tomographic angiography (CTA) of the head was performed without and with 100 mL Omnipaque-350 intravenous contrast. CTA of the neck was performed with intravenous contrast. Automated exposure control and iterative reconstruction technique were employed. The dose-length product was 2500.19 mGy- cm. Maximum intensity projection and volume rendered 3D-reconstructions were created by the technologist on a separate workstation. COMPARISON: None. FINDINGS: HEAD CTA: There is an old infarct involving the left frontotemporal parietal region and left insula. There are scattered areas of low attenuation in the cerebral white matter. There is no intracranial hemorrhage, acute infarction, or abnormal intracranial mass lesion. The ventricles are normal in size. There is mild mucosal thickening in the paranasal sinuses. There are likely changes of ocular lens replacement surgeries. The mastoid air cells are normal. The vertebral arteries are codominant. There is no significant stenosis of basilar artery or the posterior cerebral arteries. There is no significant stenosis of the intracranial internal carotid arteries or anterior or middle cerebral arteries. Anterior communicating artery is normal. The posterior communicating arteries are normal. There is no aneurysm. NECK CTA: The lungs demonstrate mild atelectasis. The endotracheal tube tip is 5 mm above the oscar. There are no pathologically enlarged lymph nodes. Partially visualized is an orogastric tube. There is no significant stenosis of the vertebral arteries. There is plaque in the proximal internal carotid arteries. There is 0% stenosis of the proximal right internal carotid artery relative to normal distal artery lumen diameter (NASCET criteria). There is 0% stenosis of the proximal left internal carotid artery relative to normal distal artery lumen diameter. There is anterior posterior fusion at many levels in cervical spine. IMPRESSION: 1. Old infarct involving the left frontotemporal parietal region and left insula. 2. Extensive nonspecific cerebral white matter disease, which likely represents chronic small vessel ischemic disease. 3. No aneurysm or significant intracranial arterial stenosis. 4. 0% stenosis of the proximal internal carotid arteries relative to normal distal artery lumen diameters (NASCET criteria). 5. Endotracheal tube tip 5 mm above the oscar. Reviewed, dictated and finalized at location E. IMPRESSION: 1. Old infarct involving the left frontotemporal parietal region and left insul a. 2. Extensive nonspecific cerebral white matter disease, which likely represents chronic small vessel ischemic disease. 3. No aneurysm or significant intracranial arterial stenosis. 4. 0% stenosis of the proximal internal carotid arteries relative to normal dis huma artery lumen diameters (NASCET criteria). 5. Endotracheal tube tip 5 mm above the oscar.
--- NOTE | ~2024-12-03 | XR_ITS ---
Examination: XR chest 1V portable Clinical History: CVA Comparison: None Technique: Portable AP Findings: ET tube, NG tube. Loop recorder. Cardiomegaly. Bibasilar predominant interstitial markings. No acute bony abnormality. IMPRESSION: 1. ET tube tip at oscar, recommend pullback 2 cm. 2. NG tube within stomach. 3. Bibasilar airspace disease. Reviewed, dictated and finalized at location R.
--- NOTE | ~2024-12-03 | XR_ITS ---
EXAMINATION: XR abdomen gastric tube insert DATE: 12/03/2024 10:30 INDICATION: Orogastric tube placement. TECHNIQUE: A supine view of the abdomen on 2 radiographs was obtained. COMPARISON: None. FINDINGS: There are no dilated loops of bowel. The orogastric tube tip is in the stomach. A catheter overlies the bladder. IMPRESSION: 1. Orogastric tube tip in the stomach. Reviewed, dictated and finalized at location E.
[2024-12-03] MEDS: RAPID SEQUENCE INTUBATION KIT 1 EACH (09:58)
--- NOTE | 2024-12-03 09:58 | ECG_ITS ---
Test Date: 2024-12-03 10:58:05 Measurements Intervals Harrison Rate: 60 P: -50 IL: 223 QRS: -22 QRSD: 111 T: -17 QT: 445 QTc: 445 Interpretive Statements SINUS RHYTHM WITH FIRST DEGREE AV BLOCK WITH OCCASIONAL VENTRICULAR PREMATURE COMPLEXES LOW QRS VOLTAGE IN PRECORDIAL LEADS POSSIBLE RIGHT VENTRICULAR CONDUCTION DELAY BORDERLINE ST-T WAVE ABNORMALITY- ANTEROLAT/INF LEADS BASELINE ARTIFACT- V1-V5 BORDERLINE ECG No previous ECG available for comparison Electronically Signed On 12-03-2024 16:42:44 CDT by Kirk Spencer D.O.
[2024-12-03] MEDS: SODIUM CHLORIDE 0.9% IV 1,000 ML 999 ML IV CONT ×2 (10:00→12:00)
[2024-12-03] MEDS: levETIRAcetam 1000MG/NACL100ML 1,000 MG/100 ML BAG 999 MG (10:00)
[2024-12-03] MEDS: levETIRAcetam 1500MG/NACL100ML 3,000 MG/200 ML BAG 999 MG (10:00)
--- NOTE | 2024-12-03 10:01 | PC.NURSE ---
Per [facility] 5 Versed prepared for IVP, administered as ordered w/ Dr Maya at bedside.
--- NOTE | 2024-12-03 10:03 | PC.NURSE ---
per [facility], 20 etomidate and 100 succ prepared for intubation, EDP requesting 1mg Dilaudid IVP Bag mask ventilation Resp in assist
--- NOTE | 2024-12-03 10:04 | PC.NURSE ---
20 etomidate, 100 succ given IVP
[2024-12-03] MEDS: MIDAZOLAM HCL (*CRX) 2 MG/2 ML VIAL 10 MG (10:05)
[2024-12-03] MEDS: HYDROmorphone HCL INJ (*CRX) 1 MG/ML SYR (10:06)
--- NOTE | 2024-12-03 10:07 | PC.NURSE ---
Pt intubated, + color change, 7.5
--- NOTE | 2024-12-03 10:08 | PC.NURSE ---
1 L NS initiated per [facility] EDP Dr Maya at bedside, given 1mg Dilaudid per [facility]
[2024-12-03 10:10] LABS: Hematocrit 37.1 % (37.0-47.0); Hemoglobin 11.5 g/dL (12.0-15.0); Immature Granulocyte Percent A 0.7 % (0-0.5); Lymphocytes Absolute Auto 1.87 K/mm3 (0.9-3.2); Mean Corpuscular HGB Conc 31.0 g/dl (32-36); Mean Corpuscular Hemoglobin 29.6 pg (26-34); Mean Corpuscular Volume 95.6 fl (80-100); Nucleated Red Blood Cells Absolute Auto 0.000 K/mm3 (0.0-0.012); Nucleated Red Blood Cells Perc 0.0 % (0.0-0.2); Platelet Count Result 179 k/mm3 (150-375); Red Blood Count 3.88 M/mm3 (4.2-5.4); White Blood Count 7.0 K/mm3 (4.5-10.0)
[2024-12-03 10:24] LABS: INR 1.0; Prothrombin Time 13.8 Seconds (11.1-14.7)
[2024-12-03 10:25] LABS: Partial Thromboplastin Time 24.1 Seconds (22.3-36.8)
[2024-12-03 10:28] LABS: Add Urine Microscopic? YES; Appearance Urine Cloudy (Clear); Glucose Urine UA Negative (Negative); Leukocyte Esterase Ur 2+ LEU/UL (Negative); Nitrate Urine Negative (Negative); Non Pathogenic Casts 0-2; Specific Grav Ur 1.016 (1.001-1.035)
[2024-12-03 10:33] LABS: Alanine Aminotransferase 17 U/L (6-35); Albumin Level 4.2 g/dL (3.5-5.1); Alkaline Phosphatase 112 U/L (38-126); Anion Gap 20 mmol/L (4-12); Aspartate Amino Transferase 22 U/L (14-36); Bilirubin,Total 0.6 mg/dL (0.2-1.3); Blood Urea Nitrogen 24 mg/dL (7-17); Calcium 9.5 mg/dL (8.4-10.2); Carbon Dioxide 17 mmol/L (22-30); Chloride 106 mmol/L (98-107); Estimated CRCL calculation 47 ml/min; Estimated Glomerular Filt Rate 41; Glucose 117 mg/dL (65-110); Magnesium 1.5 mg/dL (1.6-2.3); Potassium 4.3 mmol/L (3.4-5.0); Sodium 143 mmol/L (137-145); Total Protein 7.3 g/dL (6.3-8.2)
[2024-12-03 10:44] LABS: Troponin I < 0.012 ng/mL (0.000-0.034)
[2024-12-03] MEDS: levETIRAcetam 500MG/NACL 100ML 500 MG/100 ML BAG 999 MG (10:59)
[2024-12-03] MEDS: FENTANYL 2,500MCG/NS250ML(*CRX 2,500 MCG/250 ML BAG 7.5 MCG IV CONT (11:01)
[2024-12-03] MEDS: MIDAZOLAM 100MG/NS 100ML(*CRX) 100 MG/100 ML BAG IV CONT (11:02)
[2024-12-03 11:19] LABS: Alveolar/Arterial O2 Gradient 189.5 mmHg; Carboxyhemoglobin 0.4 % THb (0-2.0); Fractional Inspired Oxygen 45 %; HCO3 ABG 20.5 mEq/l (22.0-26.0); Methemoglobin ABG 0.0 %THb (0-1.5); Oxygen Content ABG 13.9 %vol (16.0-22.0); Oxygen Saturation ABG 95.4 % (95.0-100.0); PCO2 ABG 41.7 mmHg (35.0-45.0); PO2 ABG 83.9 mmHg (80.0-100.0); PO2 FiO2 Ratio Arterial Blood 1.86 %; Reduced Hemoglobin 5.4 %THb (0-5.0)
[2024-12-03 11:23] LABS: Site Drawn LEFT BRACHIAL
[2024-12-03 11:24] LABS: Arterial Blood Gas Pressure Support 0 cmH2O; Arterial Blood Gas Tidal Volume 400 ml; Arterial Blood Gas Ventilator rate 16 /MIN
[2024-12-03] MEDS: cefTRIAXone 1 GM in SODIUM CHLORIDE 0.9% IV 50 ML 100 ML IVPB (11:56)
--- NOTE | 2024-12-03 12:22 | ED.NEUROSD ---
HPI - Neuro Symptoms/Deficit General Chief Complaint: Suspected CVA Stated Complaint: CONFUSION Time Seen by Provider: 12/03/24 10:05 History of Present Illness HPI Narrative: This is a 74-year-old female with a history of per prior CVA with aphasia, hypertension, hypothyroid presenting for difficulty speaking. Patient called her friend at 845 this morning and said something was not right cannot articulate her ideas. She was then brought to the hospital and while she was at our stroke stop she had a generalized tonic clonic seizure. All other information obtained from family. Patient has a history of aphasia but can typically hold a complete conversation although she does have difficulty with numbers. She does not have any residual muscle weakness from her old stroke. The last time the patient was heard from was at 2:45 pm yesterday. The patient lives alone. Related Data Home Medications ?Medication ?Instructions ?Recorded ?Confirmed ?Last Taken ?Type mecobalamin (vitamin B12) 1,000 1,000 mcg PO DAILY 10/21/23 08/24/24 Unknown History mcg chewable tablet Allergies Allergy/AdvReac Type Severity Reaction Status Date / Time No Known Allergies Allergy Mild Verified 08/24/24 09:33 [facility] Past Medical History Medical History (Updated 12/03/24 @ 13:10 by Ray Maya MD) Eczema Laryngopharyngeal reflux Lymphedema of both lower extremities Chronic venous insufficiency Left middle cerebral artery stroke (~09/2023) Sleep apnea Essential (primary) hypertension Prediabetes Thyroid disorder Chronic kidney disease, stage 3 (moderate) Hypothyroidism, unspecified Mixed hyperlipidemia Vitamin D deficiency, unspecified Surgical History Surgical History History of cataract surgery Family History Family History Mother Family history of coronary artery disease Father Family history of coronary artery disease Social History Social History Smoking status: Never smoker Second hand tobacco smoke exposure: No Alcohol intake: never Substance use: former Substance use type: does not use Do You Feel Safe in your Home?: Yes Lack of Transportation: No Lack of Food: Never True Current Housing: I Have Housing Concerned About Future Housing: No Difficulty Paying Gas/Electric Bills: No Difficulty Paying for Meds: No Currently Unemployed: No Education: Master's Degree or Higher Difficulty w/ Childcare or Family Care: No Living arrangements: with family 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 Head: atraumatic. EYES: EOMI, PERRL NOSE: Atraumatic NECK: Trachea midline RESPIRATORY: No increased rate of breathing CARDIOVASCULAR: RRR, ABDOMINAL: Non-distended MUSCULOSKELETAl: No obvious deformities NEURO: Alert. Unable to articulate ideas or understand my speech. Unable to follow commands. Her right hand has a pill-rolling tremor but appears weaker overall when I hold up in the air. Left arm strength i is normal. At this point the patient had a seizure not was unable to assess anymore neurologic status. SKIN:: Warm, dry. Normal color PSYCHIATRIC: Normal affect Neuro: Cognition (Neuro): normal cognition Course Vital Signs Vital signs: Vital Signs Pulse Oximetry 99 12/03/24 09:48 Temperature 95.8 F L 12/03/24 12:02 Pulse Rate 52 L 12/03/24 13:02 Respiratory Rate 16 12/03/24 12:02 Blood Pressure 114/58 L 12/03/24 12:02 Pulse Oximetry 96 12/03/24 13:02 Oxygen Delivery Mechanical Ventilation 12/03/24 13:02 Fraction of Inspired Oxygen 45 12/03/24 13:02 Procedures Intubation Intubation #1: Intubation Date: 12/03/24 sedative: Etomidate Mg Given: 20 paralytic: Succinylcholine Mg Given: 100 Laryngoscope: Armida Tube Size (cm): 7.5 Method of Intubation: orotracheal Number of Attempts: 1 Tube Secured Depth (cm): 23 Tube Secured Location: lips Tube Placement Confirmation: visualized tube passing through cords, equal breath sounds bilaterally, no breath sounds over epigastrium and confirmation by capnometry Patient Tolerated Procedure: well Intubation Complications: none MDM - Neuro Symptoms/Deficit MDM Narrative Medical decision making narrative: -Course: 74-year-old female presenting with aphasia and altered mental status. During her admission stroke. She had a generalized tonic-clonic seizure. At that time she was brought back to a resuscitation room. The seizure abated after 1-2 minutes.. While the patient was being hooked up to the monitor, IV access and blood work were being obtained she had another seizure with rightward eye gaze deviation and nystagmus. Patient also has morbid obesity and airway was concerned given her obtunded status and snoring respirations. She was intubated for airway protection. Loaded with 4500 mg of Keppra and 5 mg of IV Versed. Patient was sent to the CT scanner for CT brain and CTA which was negative for bleed or any large vessel occlusions. Patient has contraindications to tPA including seizure at onset as well as greater than 4.5 hours from last known normal. The rest of her workup was significant for urinary tract infection which is being treated with ceftriaxone. Patient will be transferred to [facility] neuro critical care for further evaluation and treatment. -DDX includes but is not limited to: CVA, seizure, sepsis, UTI, hemorrhage -Co-morbidities complicating care: Previous CVA with aphasia, hypertension, hypothyroid Lab Data 12/03/24 10:05 12/03/24 10:05 Labs: Lab Results 12/03/24 12/03/24 12/03/24 Range/Units 09:52 10:05 10:17 WBC 7.0 (4.5-10.0) K/mm3 RBC 3.88 L (4.2-5.4) M/mm3 Hgb 11.5 L (12.0-15.0) g/dL Hct 37.1 (37.0-47.0) % MCV 95.6 (80-100) fl MCH 29.6 (26-34) pg MCHC 31.0 L (32-36) g/dl RDW 13.8 (11.5-14.5) % Plt Count 179 (150-375) k/mm3 MPV 10.6 H (7.4-10.4) fl Immature Gran % (Auto) 0.7 H (0-0.5) % Neut % (Auto) 55.7 (45.5-73.1) % Lymph % (Auto) 26.8 (18.3-44.2) % Kent % (Auto) 11.5 H (2.6-8.5) % Eos % (Auto) 4.3 (0-4.4) % Baso % (Auto) 1.0 (0.2-1.2) % Lymph # (Auto) 1.87 (0.9-3.2) K/mm3 Kent # (Auto) 0.8 H (0.1-0.6) K/mm3 Eos # (Auto) 0.3 (0-0.3) K/mm3 Baso # (Auto) 0.1 (0.0-0.1) K/mm3 Abs Immat Gran (auto) 0.05 H (0.00-0.031) K/mm3 Absolute Neuts (auto) 3.9 (1.3-6.7) K/mm3 Absolute Nucleated RBC 0.000 (0.0-0.012) K/mm3 Nucleated RBC % 0.0 (0.0-0.2) % PT 13.8 (11.1-14.7) Seconds INR 1.0 APTT 24.1 (22.3-36.8) Seconds Methemoglobin (0-1.5) %THb Minute Volume Vent Mode Tidal Volume ml PEEP cmH2O Peak Inspir Pressure Pressure Support cmH2O Sodium 143 (137-145) mmol/L Potassium 4.3 (3.4-5.0) mmol/L Chloride 106 (98-107) mmol/L Carbon Dioxide 17 L (22-30) mmol/L Anion Gap 20 H (4-12) mmol/L BUN 24 H (7-17) mg/dL Creatinine 1.28 H (0.7-1.0) mg/dL Estim Creat Clear Calc 47 ml/min Estimated GFR 41 L (59 - ) Glucose 117 H (65-110) mg/dL POC Capillary Glucose 111 H (65-105) mg/dl Lactic Acid 11.3 H* (0.7-2.0) mmol/L Calcium 9.5 (8.4-10.2) mg/dL Magnesium 1.5 L (1.6-2.3) mg/dL Total Bilirubin 0.6 (0.2-1.3) mg/dL AST 22 (14-36) U/L ALT 17 (6-35) U/L Alkaline Phosphatase 112 (38-126) U/L Troponin I < 0.012 (0.000-0.034) ng/mL Total Protein 7.3 (6.3-8.2) g/dL Albumin 4.2 (3.5-5.1) g/dL Urine Color Yellow (Yellow) Urine Appearance Cloudy H (Clear) Urine pH 6.0 (5.0-9.0) Ur Specific [place] 1.016 (1.001-1.035) Urine Protein Trace (Negative) mg/dL Urine Glucose (UA) Negative (Negative) mg/dL Urine Ketones Negative (Negative) mg/dL Ur Blood (Man) Negative (Negative) Urine Nitrate Negative (Negative) Urine Bilirubin Negative (Negative) Urine Urobilinogen 1.0 (<2.0) mg/dL Leukocyte Esterase Rfl 2+ H (Negative) RONAN/UL Urine RBC 0-2 (0-2) /hpf Urine WBC 51-100 H (0-3) /hpf Ur Squamous Epith Cells None seen (Few) /hpf Urine Bacteria Rare /hpf Urine Casts 0-2 12/03/24 12/03/24 Range/Units 11:15 12:44 WBC (4.5-10.0) K/mm3 RBC (4.2-5.4) M/mm3 Hgb (12.0-15.0) g/dL Hct (37.0-47.0) % MCV (80-100) fl MCH (26-34) pg MCHC (32-36) g/dl RDW (11.5-14.5) % Plt Count (150-375) k/mm3 MPV (7.4-10.4) fl Immature Gran % (Auto) (0-0.5) % Neut % (Auto) (45.5-73.1) % Lymph % (Auto) (18.3-44.2) % Kent % (Auto) (2.6-8.5) % Eos % (Auto) (0-4.4) % Baso % (Auto) (0.2-1.2) % Lymph # (Auto) (0.9-3.2) K/mm3 Kent # (Auto) (0.1-0.6) K/mm3 Eos # (Auto) (0-0.3) K/mm3 Baso # (Auto) (0.0-0.1) K/mm3 Abs Immat Gran (auto) (0.00-0.031) K/mm3 Absolute Neuts (auto) (1.3-6.7) K/mm3 Absolute Nucleated RBC (0.0-0.012) K/mm3 Nucleated RBC % (0.0-0.2) % PT (11.1-14.7) Seconds INR APTT (22.3-36.8) Seconds Methemoglobin 0.0 (0-1.5) %THb Minute Volume Not Reportable Vent Mode Cmv Tidal Volume 400 ml PEEP 5 cmH2O Peak Inspir Pressure Not Reportable Pressure Support 0 cmH2O Sodium (137-145) mmol/L Potassium (3.4-5.0) mmol/L Chloride (98-107) mmol/L Carbon Dioxide (22-30) mmol/L Anion Gap (4-12) mmol/L BUN (7-17) mg/dL Creatinine (0.7-1.0) mg/dL Estim Creat Clear Calc ml/min Estimated GFR (59 - ) Glucose (65-110) mg/dL POC Capillary Glucose (65-105) mg/dl Lactic Acid 1.8 (0.7-2.0) mmol/L Calcium (8.4-10.2) mg/dL Magnesium (1.6-2.3) mg/dL Total Bilirubin (0.2-1.3) mg/dL AST (14-36) U/L ALT (6-35) U/L Alkaline Phosphatase (38-126) U/L Troponin I (0.000-0.034) ng/mL Total Protein (6.3-8.2) g/dL Albumin (3.5-5.1) g/dL Urine Color (Yellow) Urine Appearance (Clear) Urine pH (5.0-9.0) Ur Specific [place] (1.001-1.035) Urine Protein (Negative) mg/dL Urine Glucose (UA) (Negative) mg/dL Urine Ketones (Negative) mg/dL Ur Blood (Man) (Negative) Urine Nitrate (Negative) Urine Bilirubin (Negative) Urine Urobilinogen (<2.0) mg/dL Leukocyte Esterase Rfl (Negative) RONAN/UL Urine RBC (0-2) /hpf Urine WBC (0-3) /hpf Ur Squamous Epith Cells (Few) /hpf Urine Bacteria /hpf Urine Casts ABG Data ABG results: 12/03/24 11:15 Puncture Site Left brachial ABG pH 7.309 L ABG pCO2 41.7 ABG pO2 83.9 ABG PO2/FiO2 Ratio 1.86 ABG HCO3 20.5 L ABG O2 Saturation 95.4 ABG O2 Content 13.9 L ABG Base Excess -5.4 A-a Gradient 189.5 Oxyhemoglobin 94.2 Carboxyhemoglobin 0.4 Reduced Hemoglobin 5.4 H Total Hemoglobin 10.4 L O2 Delivery Device Ventilator O2 Liters/Min Not Reportable Vent Rate 16 FiO2 45 Discharge Plan Discharge Clinical Impression: Seizure, Aphasia, Arm weakness, Acute UTI Patient Disposition: Acute Care Hospital Condition: Guarded Prognosis Patient Language: Lithuanian Prescriptions: No Action mecobalamin (vitamin B12) 1,000 mcg tablet,chewable 1,000 mcg PO DAILY pantoprazole 20 mg tablet,delayed release (DR/EC) 20 mg PO QAM Qty: 90 1RF (DME) compression stockings 15-20 mm of hg See Rx Instructions .Route .MEDSUPPLY Qty: 1 0RF Rx Instructions: As directed triamcinolone acetonide 0.5 % cream 1 applic topical BID Qty: 15 1RF carvedilol 12.5 mg tablet 12.5 mg PO Q12H Qty: 180 2RF Rx Instructions: must administer with a meal/food potassium chloride 10 mEq tablet extended release 10 meq PO DAILY Qty: 90 1RF olmesartan-hydrochlorothiazide 40-25 mg tablet 1 tablet PO DAILY Qty: 90 1RF cholecalciferol (vitamin D3) 50 mcg (2,000 unit) tablet 50 mcg PO DAILY Qty: 90 3RF allopurinol 300 mg tablet 300 mg PO DAILY Qty: 90 1RF levothyroxine 50 mcg tablet 50 mcg PO DAILY Qty: 90 1RF amlodipine 10 mg tablet 10 mg PO DAILY Qty: 90 1RF atorvastatin 40 mg tablet 40 mg PO QHS Qty: 100 1RF aspirin [Children's Aspirin] 81 mg Tablet,Chewable 81 mg PO DAILY Qty: 30 0RF Follow-up/Referrals: Naina Felipe MD [Primary Care Provider, Family Practice]
[2024-12-03] MEDS: MAGNESIUM SULF 2 GM/WATER 50ML 2 GM/50 ML BAG IVPB (13:17)
--- NOTE | 2024-12-03 19:28 | PC.NURSE ---
This RN received report from Shireen MORALES.
--- NOTE | 2024-12-03 22:46 | PC.NURSE ---
This RN spoke to Krissy from [facility] and gave an update on pt eta of 2330.
[2024-12-03] MEDS: LACTATED RINGERS 1,000 ML 75 ML IV CONT (23:00)
[2024-12-04] VITALS (29 sets, daily range): BP systolic 127–138; BP diastolic 58–63; PULSE 52–56; RESP 15–19; TEMP 37.2–37.6; O2SAT 97–98
--- NOTE | 2024-12-04 03:22 | PC.NURSE ---
This RN called U room 309 supercharger repair supervisor x2 and received no answer.
[2024-12-04] MEDS: FENTANYL 2,500MCG/NS250ML(*CRX 2,500 MCG/250 ML BAG 12.5 MCG (06:03)
[2024-12-04] MEDS: MIDAZOLAM HCL (*CRX) 10 MG/2 ML VIAL 5 MG IV PUSH (06:09)
--- NOTE | 2024-12-04 06:28 | PC.NURSE ---
This RN called and spoke to 3 north RN from [facility] and gave eta.
== END 2024-12-04 06:17 | disposition short-term general hospital (02) ==
PROVIDERS: Emergency Medicine; Emergency Provider Emergency Medicine; PCP Family Medicine
DX: R56.9 Unspecified convulsions (principal); N39.0 Urinary tract infection, site not specified; R53.1 Weakness; I69.920 Aphasia following unspecified cerebrovascular disease; I12.9 Hypertensive chronic kidney disease with stage 1 through stage 4 chronic kidney disease, or unspecified chronic kidney disease; N18.30 Chronic kidney disease, stage 3 unspecified; I87.2 Venous insufficiency (chronic) (peripheral); E03.9 Hypothyroidism, unspecified; E55.9 Vitamin D deficiency, unspecified; E78.2 Mixed hyperlipidemia; E66.01 Morbid (severe) obesity due to excess calories; Z68.41 Body mass index [BMI] 40.0-44.9, adult; R73.03 Prediabetes; K21.9 Gastro-esophageal reflux disease without esophagitis; G47.30 Sleep apnea, unspecified; Z98.49 Cataract extraction status, unspecified eye; Z79.82 Long term (current) use of aspirin; Z79.899 Other long term (current) drug therapy; R94.31 Abnormal electrocardiogram [ECG] [EKG]; I44.0 Atrioventricular block, first degree
CPT/HCPCS: 31500; 36415; 36600; 70496; 70498; 71045; 80053; 81001; 82375; 82805; 82948; 83050; 83605; 83735; 84484; 85018; 85025; 85610; 85730; 87077; 87086; 87186; 93005; 94002; 94003; 96365; 96366; 96367; 96368; 96375; 99285; J0330; J0696; J1171; J1953; J2250; J3010; J3475; J7030; J7120; Q9967

== ENCOUNTER 2024-12-18 19:49 | Emergency (ER) | payer MEDICARE, SELFPAY ==
[2024-12-18 19:51] VITALS: BP 108/57; PULSE 71; RESP 18; TEMP 36.3; O2SAT 97
[2024-12-18] MEDS: SODIUM CHLORIDE 0.9% IV 1,000 ML 999 ML IV CONT (20:26)
[2024-12-18 20:33] VITALS: BP 92/56; PULSE 66; RESP 18; O2SAT 99
[2024-12-18 20:34] VITALS: PULSE 63; RESP 16; O2SAT 99
[2024-12-18 20:40] LABS: Hematocrit 35.2 % (37.0-47.0); Hemoglobin 11.6 g/dL (12.0-15.0); Immature Granulocyte Percent A 0.7 % (0-0.5); Lymphocytes Absolute Auto 1.35 K/mm3 (0.9-3.2); Mean Corpuscular HGB Conc 33.0 g/dl (32-36); Mean Corpuscular Hemoglobin 30.0 pg (26-34); Mean Corpuscular Volume 91.0 fl (80-100); Nucleated Red Blood Cells Absolute Auto 0.000 K/mm3 (0.0-0.012); Nucleated Red Blood Cells Perc 0.0 % (0.0-0.2); Platelet Count Result 246 k/mm3 (150-375); Red Blood Count 3.87 M/mm3 (4.2-5.4); White Blood Count 5.5 K/mm3 (4.5-10.0)
--- OUTSIDE RECORDS SUMMARY | 2024-12-18 20:44 | XMS_ITS | Clinical Summary ---
Author Organization [facility] Address [address] [place] [id number] Care Team Providers Care Gas Engine Operator Generators Name Role Phone Unavailable Primary Care Provider [...] Td Vaccines ( 1 - Tdap) 1968 Pneumococcal Vaccine: 50+ Ye ars (1 of 1 - PCV) 11/13/1999 Zoster Vaccines (1 of 2) 11/13/1999 Dexa Scan (General) 2014 COVID-19 Vaccine ( - 2024-2 6 season) 2024 RSV Immunization or 60+ Years (1 - 1-dose 75+ series) 2024 Influenza Adult (#1) 2024 Hepatitis A Vaccines Aged Out No long er eligible based on patient's age to complete this topic Meningococcal B Vaccine Aged Out No l onger eligible based on patient's age to complete this topic Meningococcal Vaccine Aged Out No dana sandra eligible based on patient's age to complete this topic RSV Immunizations Under 20 Months Aged Out No longer eligible based on patient's age to complete this topic
--- OUTSIDE RECORDS SUMMARY | 2024-12-18 20:44 | XMS_ITS | Clinical Summary ---
Author Organization [facility] Address [address] Husseinn: Monica Prelude ADT SIOBHAN AREVALO [address] Care Team Providers Care Homeowner Association Manager Name Role Phone Unavailable Primary Care [...] daily. 90 Tablet 2 04/23/2023 2:25 PM TELESALES SUPERVISOR 3 Active carvediloL (COREG) 25 mg tablet Take 0.5 Tablets (12.5 mg) by mouth every 12 hours with a meal/food. 90 Tablet 1 04/23/2023 2:25 PM TELESALES SUPERVISOR 3 Active levothyroxine 50 mcg tablet Take 1 Tablet (50 mcg) by mouth daily. 90 Tablet 1 04/23/2023 2:25 PM TELESALES SUPERVISOR 3 Active ezetimibe-simv astatin (VYTORIN) 10-40 mg tablet Take 1 Tablet by mouth daily. 30 Tablet 04/23/2023 2:25 PM TELESALES SUPERVISOR 3 Active omeprazole (PriLOSEC) 40 mg Capsule, [...] daily. 90 Tablet 1 12/31/2023 1:00 PM TELESALES SUPERVISOR 4 Active aspirin (LEILA CHEWABLE) 81 mg [...] administer with a meal/food 180 Tablet 2 09/07/2024 6:58 PM CDT 4 Active escitalopram oxalate (LEXAPRO) 5 mg tablet Take one tablet (5 mg) orally daily 90 Tablet 1 4 Active pantoprazole (PROTONIX) 20 mg Tablet, Delayed Release (E.C.) Take 1 Tablet (20 mg) by mouth daily in the morning. 90 Tablet 1 05/05/2024 11:28 AM CDT 4 Active potassium CHLORIDE (KLOR-CON) 10 mEq Extended Release tablet Take 1 Tablet (10 mEq) by mouth daily. 90 Tablet 1 07/12/2024 6:32 PM CDT 5 Active olmesartan-hyd roCHLOROthiazi de (BENICAR-HCT) 40-25 mg tablet Take 1 Tablet by mouth daily. 90 Tablet 1 09/30/2024 12:43 PM CDT 5 Active cholecalcifero l, Vitamin D3, 50 mcg (2,000 unit) Tablet Take 1 Tablet (2,000 Units) by mouth daily. 90 Tablet 3 09/07/2024 6:58 PM CDT 5 Active omeprazole (PriLOSEC) 40 mg Capsule, Delayed Release(E.C.) Take 1 Capsule (40 mg) by mouth daily 30 minutes before breakfast. 90 Capsule 4 11/13/2024 11:42 AM CDT 5 Active sodium sulfate-potass ium CHLORIDE-magne [...] daily in the morning. 90 Tablet 1 08/24/2024 7:06 PM CDT 5 Active triamcinolone acetonide (KENALOG) 0.5 % Cream APPLY TO AFFECTED AREA(S) TWO TIMES DAILY DIRECTED. 15 Gram 1 09/07/2024 6:58 PM CDT 5 Active levothyroxine 50 mcg tablet Take 1 Tablet (50 mcg) by mouth daily. 90 Tablet 1 10/19/2024 6:49 PM CDT 5 Active atorvastatin (LIPITOR) 40 mg tablet Take 1 Tablet (40 mg) by mouth daily at bedtime. 100 Tablet 1 12/16/2024 2:03 PM CDT 5 Active allopurinoL (ZYLOPRIM) 300 mg tablet Take 1 Tablet (300 mg) by mouth daily. 30 Tablet 12/16/2024 2:03 PM CDT 5 Active amLODIPine (NORVASC) 10 mg tablet Take 1 Tablet (10 mg) by mouth daily. 30 Tablet 5 Active atorvastatin (LIPITOR) 40 mg tablet Take 1 Tablet (40 mg) by mouth daily. 30 Tablet 5 Active oxyBUTYnin (DITROPAN) 5 mg tablet Take 1 Tablet (5 mg) by mouth 3 times daily. 90 Tablet 12/16/2024 2:03 PM CDT 5 Active levothyroxine 50 mcg tablet Take 1 Tablet (50 mcg) by mouth daily. 30 Tablet 5 Active escitalopram oxalate (LEXAPRO) 5 mg tablet Take 0.5 Tablets (2.5 mg) by mouth daily. 15 Tablet 12/16/2024 2:03 PM CDT 5 Active levETIRAcetam (KEPPRA) 1,000 mg tablet Take 1 Tablet (1,000 mg) by mouth 2 times daily. 60 Tablet 12/16/2024 2:03 PM CDT 5 Active atorvastatin (LIPITOR) 40 mg tablet Take 1 Tablet (40 mg) by mouth daily at bedtime. 100 Tablet 1 11/25/2024 6:01 PM CDT 4 025 Discontin ued(Reord er) amLODIPine (NORVASC) 10 mg tablet Take 1 Tablet (10 mg) by mouth daily. 90 Tablet 1 11/13/2024 11:42 AM CDT 5 025 Discontin ued(Reord er) Encounters Date Type Department Care Team Description 10/31/2024 External Device Data STL ABSTRACTION Provider, Abstract from Last 3 Months Social History Tobacco [...] Comments DTAP/TDAP/TD VACCINES (1 - Tdap) 1968 COLORECTAL SCREENING 1994 Colorectal Cancer Screening 1994 FIT-DNA Q 3 years 1994 FIT/FOBT Q 1 year 1994 Flex Sig/CT Colonography Q 5 years 1994 PNEUMOCOCCAL VACCINE 50+ YEARS (1 of 1 - PCV) 11/13/19 00 ZOSTER VACCINE (1 of 2) 11/13/1999 OSTEOPOROSIS SCREENING 2014 INFLUENZA VACCINE (#1) 2024 RSV VACCINE (60+ or ) (1 - 1-dose 75+ series) 2024 [place] [address] RX AETNA Medicare Part D RX [employer] PLANS (INTERNAL) [facility]
--- OUTSIDE RECORDS SUMMARY | 2024-12-18 20:44 | XMS_ITS | Clinical Summary ---
Author Organization [facility] Address [address] [place] [address] Care Team Providers Care Nonprofit Fundraiser Name Role Phone Mono Felipe MD Primary Care Provider Fermin Chappell MD Unavailable [phone] Allergies No known active allergies Medications allopurinol [...] Encounters Date Type Department Care Team Description 09/21/2024 Telephone [facility] - [facility]iology - [place] [address] [place] [address] Fermin Chappell MD from Last 3 Months Social History Tobacco [...] st Contact Info) Description 02/06/2025 10:30 AM TRANSITIONS MANAGER RN Office Visit [facility] - Cardiology - [place] [address] [place] [address] Fermin Chappell MD [address] [address] Health Maintenance Due Date Last Done Comments DEXA Bone Density 1950 Hepatitis C Virus (HCV) Screening 1950 TdaP Immunization 1950 Cologuard 1994 Colonoscopy 1994 Colorectal Cancer Screening 1994 Immunochemical Fecal Occult Blood 1994 Zoster Immunization (1 of 2) 11/13/1999 Medicare Initial AWV [id number] 02/23/2024 Influenza Immunization (#1) 2024 11/0 06/2023, 12/03/2022, 01/23/2022, Additional history exists SARS-COV-2 Immunization ( season) 2024 12/03/2022, 03/05/2022, 05/29/2021, Additional history exists Respiratory [...] topic Insurance MEDICARE C AETNA Care Teams Nonprofit Fundraiser Relationship Specialty Start Date End Date Mono Felipe MD [address] [place] [address] [address] [place] [address] PCP - General Family Medicine 08/17/24 Fermin Chappell MD [address] [place] [address] Consulting Physician Cardiology 08/18/24
--- OUTSIDE RECORDS SUMMARY | 2024-12-18 20:44 | XMS_ITS | Clinical Summary ---
Author Organization [facility] [employer] Address [address] [place] [address] Care Team Providers Care Brokerage Coordinator Name Role Phone Mono Felipe MD Primary Care Provider Source Comments [facility] [employer],non-owned Affiliates and Associated Physician Practices is amultiple site organization consisting of ambulatory clinics and hospital sitesin [place], [place] and [place]. This disclosure is being madepursuant to the Care Everywhere program and may not contain all information available regarding this patient. Last updated 17.[facility] [employer] Allergies No known active allergies Medications * Be aware that medications may not be up to date on this document. Alwaysverify current medications with the patient. cyanocobalamin (Vitamin B-12) 1000 MCG tablet Take 1 (one) tablet by mouth once daily Active escitalopram (Lexapro) 5 MG tablet Take 0.5 (one-half) tablet by mouth once daily Active Vitamin D3 (Cholecalcifer ol) 50 MCG (2000 UT) capsule Take 1 (one) capsule by mouth once daily Active levothyroxine (Synthroid) 50 MCG tablet Take 1 (one) tablet by mouth daily before breakfast Active allopurinol (Zyloprim) 300 MG tablet Take 1 (one) tablet by mouth once daily Active amLODIPine (Norvasc) 10 MG tablet Take 1 (one) tablet by mouth once daily Active olmesartan-hyd roCHLOROthiazi de (Benicar HCT) 40-25 MG tablet Take 1 [...] BY MOUTH ONCE DAILY 60 tablet 4 Active atorvastatin (Lipitor) 40 MG tablet TAKE ONE TABLET BY MOUTH AT BEDTIME 60 tablet 4 Active potassium chloride ER (Klor-Con M) 10 MEQ tablet Take 1 (one) tablet by mouth once daily Active acetaminophen (Tylenol) 325 MG tablet Take 2 (two) tablets by mouth every 6 hours as needed Maximum allowable Acetaminophen amount = 4 Grams (4000 mg) / 24 hours. 5 Active levETIRAcetam (Keppra) 1000 MG tablet Take 1 (one) tablet by mouth 2 times daily 5 Active polyethylene glycol 3350 (Miralax) 17 g packet Take 17 (seventeen) g by mouth once daily 5 Active senna (Senokot) 8.6 MG tablet Take 1 (one) tablet by mouth once daily 5 Active Active Problems Problem Noted Date Diagnosed Date History of ischemic left MCA stroke 12/06/2024 Assessment & Plan (12/09/2024 12:41 PM CDT): -CT imaging unremarkable -loop recorder implant showing no AFib burden -MRI grossly unremarkable PLAN -Continue with aspirin and Lipitor Assessment & Plan (12/08/2024 2:54 PM CDT): -CT imaging unremarkable -loop recorder implant showing no AFib burden -MRI grossly unremarkable PLAN -Continue with aspirin and Lipitor Assessment & Plan (12/07/2024 2:15 PM CDT): -CT imaging unremarkable -loop recorder implant showing no AFib burden -MRI grossly unremarkable PLAN -Continue with aspirin and Lipitor Assessment & Plan (12/06/2024 10:26 AM CDT): -CT imaging unremarkable -loop recorder implant showing no AFib burden -MRI grossly unremarkable PLAN -Continue with aspirin and Lipitor UTI (urinary tract infection) 12/05/2024 Assessment & Plan (12/09/2024 12:41 PM CDT): -received rocephin 1x PLAN -Completed 3 day course of abx Assessment & Plan (12/08/2024 2:54 PM CDT): -received rocephin 1x PLAN -Completed 3 day course of abx Assessment & Plan (12/07/2024 2:15 PM CDT): -received rocephin 1x PLAN -Will complete 3 day course of abx Assessment & Plan (12/06/2024 10:26 AM CDT): -received rocephin 1x PLAN -Will complete 3 day course of abx Hypothyroid 12/05/2024 Assessment & Plan (12/09/2024 12:41 PM CDT): -continue levothyroxine Assessment & Plan (12/08/2024 2:54 PM CDT): -continue levothyroxine Assessment & Plan (12/07/2024 2:15 PM CDT): -continue levothyroxine Assessment & Plan (12/06/2024 10:26 AM CDT): -continue levothyroxine Assessment & Plan (12/05/2024 8:20 PM CDT): -continue levothyroxine Gout 12/05/2024 Assessment & Plan (12/09/2024 12:41 PM CDT): -continue allopurinol Assessment & Plan (12/08/2024 2:54 PM CDT): -continue allopurinol Assessment & Plan (12/07/2024 2:15 PM CDT): -continue allopurinol Assessment & Plan (12/06/2024 10:26 AM CDT): -continue allopurinol Assessment & Plan (12/05/2024 8:20 PM CDT): -continue allopurinol GERD (gastroesophageal reflux disease) Assessment & Plan (12/09/2024 12:41 PM CDT): -continue lansoprazole 30 mg daily Assessment & Plan (12/08/2024 2:54 PM CDT): -continue lansoprazole 30 mg daily Assessment & Plan (12/07/2024 2:15 PM CDT): -continue lansoprazole 30 mg daily Assessment & Plan (12/06/2024 10:26 AM CDT): -continue lansoprazole 30 mg daily Assessment & Plan (12/05/2024 8:20 PM CDT): -continue lansoprazole 30 mg daily Consolidation lung 12/05/2024 Assessment & Plan (12/09/2024 12:41 PM CDT): CT chest revealed bilateral dependent opacities that could represent either atelectasis or aspiration pneumonia. Patient currently afebrile and not on antibiotics. Monitor for fevers -MRSA PCR negative -sputum Gram stain and culture unremarkable growth so far -wean off oxygen Assessment & Plan (12/08/2024 2:54 PM CDT): CT chest revealed bilateral dependent opacities that could represent either atelectasis or aspiration pneumonia. Patient currently afebrile and not on antibiotics. Monitor for fevers -MRSA PCR negative -sputum Gram stain and culture unremarkable growth so far Assessment & Plan (12/07/2024 2:15 PM CDT): CT chest revealed bilateral dependent opacities that could represent either atelectasis or aspiration pneumonia. Patient currently afebrile and not on antibiotics. Monitor for fevers -MRSA PCR negative -sputum Gram stain and culture unremarkable growth so far Assessment & Plan (12/06/2024 10:26 AM CDT): CT chest revealed bilateral dependent opacities that could represent either atelectasis or aspiration pneumonia. Patient currently afebrile and not on antibiotics. Monitor for fevers -MRSA PCR negative -sputum Gram stain and culture unremarkable growth so far Assessment & Plan (12/05/2024 8:20 PM CDT): CT chest revealed bilateral dependent opacities that could represent either atelectasis or aspiration pneumonia. Patient currently afebrile and not on antibiotics. Monitor for fevers -[place] PCR negative -sputum Gram stain and culture unremarkable growth so far Status epilepticus 12/03/2024 Assessment & Plan (12/09/2024 12:41 PM CDT): -s/p Keppra load at OSH, and started on Keppra 1g BID here -continue with Keppra 1 g b.i.d. -seizure precautions -will continue keppra BID at discharge and place neurology f/u Assessment & Plan (12/08/2024 2:54 PM CDT): -s/p Keppra load at OSH, and started on Keppra 1g BID here -continue with Keppra 1 g b.i.d. -seizure precautions -q4 hr neurochecks -will continue keppra BID at discharge and place neurology f/u Assessment & Plan (12/07/2024 2:15 PM CDT): -s/p Keppra load at OSH, and started on Keppra 1g BID here -continue with Keppra 1 g b.i.d. -seizure precautions -q4 hr neurochecks -will continue keppra BID at discharge and place neurology f/u Assessment & Plan (12/06/2024 10:26 AM CDT): -s/p Keppra load at OSH, and started on Keppra 1g BID here -continue with Keppra 1 g b.i.d. -seizure precautions -q4 hr neurochecks Assessment & Plan (12/05/2024 8:25 PM CDT): -continue with Keppra 1 g b.i.d. -seizure precautions Essential hypertension 12/06/2023 Assessment & Plan (12/09/2024 12:41 PM CDT): Home regimem: Coreg 12.5 BID, Olmesartan-HCTZ 40-25 mg qd, Amlodipine 10 mg qd PLAN --Continue amlodipine 10, Coreg 12.5 b.i.d., losartan 100 daily, and hydrochlorothiazide 25 daily Assessment & Plan (12/08/2024 2:54 PM CDT): Home regimem: Coreg 12.5 BID, Olmesartan-HCTZ 40-25 mg qd, Amlodipine 10 mg qd PLAN --Continue amlodipine 10, Coreg 12.5 b.i.d., losartan 100 daily, and hydrochlorothiazide 25 daily Assessment & Plan (12/07/2024 2:15 PM CDT): Home regimem: Coreg 12.5 BID, Olmesartan-HCTZ 40-25 mg qd, Amlodipine 10 mg qd PLAN --Continue amlodipine 10, Coreg 12.5 b.i.d., losartan 100 daily, and hydrochlorothiazide 25 daily Assessment & Plan (12/06/2024 10:26 AM CDT): Home regimem: Coreg 12.5 BID, Olmesartan-HCTZ 40-25 mg qd, Amlodipine 10 mg qd PLAN --Continue amlodipine 10, Coreg 12.5 b.i.d., losartan 100 daily, and hydrochlorothiazide 25 daily Assessment & Plan (12/05/2024 8:20 PM CDT): --continue amlodipine 10, Coreg 12.5 b.i.d., losartan 100 daily, and hydrochlorothiazide 25 daily Mixed hyperlipidemia 12/06/2023 Assessment & Plan (12/09/2024 12:41 PM CDT): -Continue with Lipitor Assessment & Plan (12/08/2024 2:54 PM CDT): -Continue with Lipitor Assessment & Plan (12/07/2024 2:15 PM CDT): -Continue with Lipitor Assessment & Plan (12/06/2024 10:26 AM CDT): -Continue with Lipitor Assessment & Plan (12/05/2024 8:20 PM CDT): -continue with Lipitor Acute ischemic left MCA stroke 09/24/2023 Assessment & Plan (12/05/2024 8:20 PM CDT): -transferred out of Neuro ICU to medicine floors -CT imaging unremarkable -loop recorder implant showing no AFib burden -MRI grossly unremarkable -continue with aspirin and Lipitor Transient alteration of awareness 09/24/2023 Aphasia 09/24/2023 Assessment & Plan (12/05/2024 8:20 PM CDT): -transferred out of Neuro ICU to medicine floors -CT imaging unremarkable -loop recorder implant showing no AFib burden -MRI grossly unremarkable -continue with aspirin and Lipitor Encounters Date Type Department Care Team Description 12/04/2024 7:11 AM CDT - 12/09/2024 9:14 AM CDT Hospital [facility] [address] [place] [address] Yeyo Theodore II, Braulio Baez MD Albrecht, Ryan, DO Neurocritical Care Discharge Disposition: Rehab:Inpatient 12/04/2024 Travel 09/28/2024 1:10 AM CDT Clinical Support [facility] - Cardiology [address], [place] [place] [address] Acute ischemic left MCA stroke (HCC) ; Status post placement of implantable loop recorder from Last 3 Months Social History Tobacco Use Types Packs/Day Years Used Date Smoking Tobacco: Never Smokeless Tobacco: Never Tobacco Cessation:Counseling Given: Not Answered PHQ-2 Answer Date Recorded Patient Health Questionnaire-2 Score 0 09/30/2023 PRAPARE - Transportation Answer Date Re corded [...] place to sleep or slept in a senior living (including now)? No 09/27/2023 AUDIT-C Answer Date Recorded Q1: How often do you have a drink containing alcohol? Patient unable to answer 12/04/2024 Q2: How many drinks containi ng alcohol do you have on a typical day when you are drinking? Patient unable to answer Q3: How often do you have si x or more drinks on one occasion? Patient unable to answer 12/04/2024 Overall Financial Resource Strain (CARDIA) Answe r Date Recorded How hard is it for you to pa y for the very basics like food, housing, medical care, and heating? Patient unable to answer 12/04/2024 [facility] - Occupational Stress Questionnaire Answer Date Recorded Do you feel stress - tense, restless, nervous, or anxious, or unable to sleep at night because your mind is troubled all the time - these days? Patient unable to answer 12/04/2024 Hunger Vital Sign Answer Date Recorded Within the past 12 months, y ou worried that your food would run out before you got the money to buy more. Patient unable to answer 12/04/2024 Within the past 12 months, t he food you bought just didn't last and you didn't have money to get more. Patient unable to answer 12/04/2024 PRAPARE - Transportation Answer Date Re corded In the past 12 months, has l ack of transportation kept you from medical appointments or from getting medications? Patient unable to answer 12/04/2024 In the past 12 months, has l ack of transportation kept you from meetings, work, or from getting things needed for daily living? Patient unable to answer 12/04/2024 Housing Stability Vital Sign Answer Ron e Recorded In the last 12 months, was t here a time when you were not able to pay the mortgage or rent on time? Patient unable to answer 12/04/2024 Number of Times Moved in the Last Year Not on fi le 12/04/2024 At any time in the past 12 m [facility], were you homeless or living in a senior living (including now)? Patient unable to answer 12/04/2024 Comments Unknown Sex and Gender Information Value Date Recorded Sex Assigned at Not on file Legal Sex Female 6:56 PM CDT Gender Identity Not on file Sexual Orientation Not on file Last Filed Vital Signs Vital Sign Reading Time Taken Comments Blood Pressure 137/71 12/09/2024 8:03 AM CDT Pulse 83 12/09/2024 8:03 AM CDT Temperature 36.7 C (98 F) 12/09/2024 8:03 AM CDT Respiratory Rate 18 12/08/2024 12:0 2 PM CDT Oxygen Saturation 95% 12/09/2024 8:03 AM CDT Inhaled Oxygen Concentration 40% 10:26 AM CDT Weight 123.2 kg (271 lb 9.6 oz) 12/09/2024 3:36 AM CDT Height 170.2 cm (5' 7) 12/04/2024 10:2 9 AM CDT Body Mass Index 42.54 12/04/2024 10:29 AM CDT Plan of Treatment Upcoming Encounters Date Type Department Care Team (Late st Contact Info) Description 01/11/2025 1:00 AM LINE DRIVER Clinical Support [facility] - Cardiology [address], [address] [address] 02/16/2025 1:00 AM LINE DRIVER Clinical Support [facility] - Cardiology [address], [address] [phone] 03/22/2025 1:00 AM LINE DRIVER Clinical Support [facility] - Cardiology [address], [facility] [address] [place] [address] Health Maintenance Due Date Last Done Comments [...] 11/13/1999 ZOSTER VACCINE (1 of 2) 11/13/1999 DEPRESSION SCREENING 02/23/2024 09/24/2023 MEDICARE AWV CALENDAR YEAR 2024 COVID-19 VACCINE (1 - 2023-2 5 season) 2024 INFLUENZA VACCINE (#1) 2024 Respiratory Syncytial Virus (RSV) Vaccine Pt: or over 60 yrs (1 - 1-dose 75+ series) 2024 LIPID TESTING 09/24/2028 09/25/2023 HEPATITIS B VACCINE Aged Out No longe [...] this topic Medical Devices Implanted Type Area Resistor Testing Machine Operator Device Identifier Shelf Expiration Date Model / Serial / Lot Sys Crd Mntr Rvl Linq Ii - [id number] Implanted:Qty: 1 on 09/29/2023 by Kathy Richmond MD at [facility] [id number] 02/09/2025 LNQ22 SYS / [id number] / [id number] 3 Description:Loop Implant R-wave: 0.45 Procedures Procedure Name Priority Date/Time Associated Diagnosis Comments PHOSPHORUS BLOOD Routine 12/09/2024 3:05 AM CDT MAGNESIUM BLOOD Routine 12/09/2024 3:05 AM CDT CBC W AUTO DIFFERENTIAL Routine 12/09/2024 3:05 AM CDT BASIC METABOLIC PANEL (CALCIUM TOTAL) Routine 12/09/2024 3:05 AM CDT GLUCOSE - POINT OF CARE Routine 12/08/2024 12:02 PM CDT PHOSPHORUS BLOOD Routine 12/08/2024 1:03 AM CDT MAGNESIUM BLOOD Routine 12/08/2024 1:03 AM CDT CBC W AUTO DIFFERENTIAL Routine 12/08/2024 1:03 AM CDT BASIC METABOLIC PANEL (CALCIUM TOTAL) Routine 12/08/2024 1:03 AM CDT GLUCOSE - POINT OF CARE Routine 12/07/2024 4:18 AM CDT PHOSPHORUS BLOOD Routine 12/07/2024 12:1 9 AM CDT MAGNESIUM BLOOD Routine 12/07/2024 12:19 AM CDT CBC W AUTO DIFFERENTIAL Routine 12/07/2024 12:19 AM CDT BASIC METABOLIC PANEL (CALCIUM TOTAL) Routine 12/07/2024 12:19 AM CDT PHOSPHORUS BLOOD Routine 12/05/2024 11:5 2 PM CDT MAGNESIUM BLOOD Routine 12/05/2024 11:52 PM CDT CBC W AUTO DIFFERENTIAL Routine 12/05/2024 11:52 PM CDT BASIC METABOLIC PANEL (CALCIUM TOTAL) Routine 12/05/2024 11:52 PM CDT EXTUBATION Routine 12/05/2024 11:49 AM CDT BLOOD GASES ART + COOX PANEL Routine 12/05/2024 8:16 AM CDT PHOSPHORUS BLOOD Routine 12/05/2024 12:5 0 AM CDT MAGNESIUM BLOOD Routine 12/05/2024 12:50 AM CDT CBC W AUTO DIFFERENTIAL Routine 12/05/2024 12:50 AM CDT BASIC METABOLIC PANEL (CALCIUM TOTAL) Routine 12/05/2024 12:50 AM CDT MRI BRAIN WO CONTRAST STAT 12/04/2024 11:07 PM CDT Status epilepticus (HCC) XR ABDOMEN KUB Routine 12/04/2024 8:08 PM CDT Status epilepticus (HCC) MRSA PCR STAT 12/04/2024 1:48 PM CDT CULTURE SPUTUM+GRAM STAIN Routine 12/04/2024 1:[address] CHEST WO CONTRAST STAT 12/04/2024 12:29 PM CDT Status epilepticus (HCC) URINALYSIS REFLEX TO MICROSCOPIC NO CULTURE Routine 12/04/2024 12:02 PM CDT XR CHEST 1VW PORTABLE STAT 12/04/2024 10:49 AM CDT Status epilepticus (HCC) TSH REFLEX FREE T4 Routine 12/04/2024 9: 51 AM CDT CBC W AUTO DIFFERENTIAL Routine 12/04/2024 9:51 AM CDT HEMOGLOBIN A1C Routine 12/04/2024 9:51 AM CDT RENAL FUNCTION PANEL Routine 12/04/2024 9:51 AM CDT MAGNESIUM BLOOD Routine 12/04/2024 9:51 AM CDT VENTILATOR LIBERATION TRIAL PROTOCOL Routine 12/04/2024 9:18 AM CDT ID ILR DEVICE INTERROGAT REMOTE Routine 2024 1:19 PM CDT Acute ischemic left MCA stroke (HCC) Status post placement of implantable loop recorder CARDIAC PROCEDURE ORDER 09/26/2024 ID ILR DEVICE INTERROGAT REMOTE Routine 09/23/2024 6:21 AM CDT Acute ischemic left MCA stroke (HCC) Status post placement of implantable loop recorder LIPID PROFILE STAT 09/25/2023 6:14 AM CDT from Last 3 Months or Most Recently Relevant to Health Maintenance Results * (ABNORMAL) CBC W AUTO DIFFERENTIAL (12/09/2024 3:05 AM CDT) Only the most recent of6 resultswithin the time period is included. WBC 6.0 4.0 - 10.7 x10E9/L 12/09/2024 3:45 AM CDT [facility] RBC Count 3.71(L) 3.90 - 5.20 x10E12/L 12/09/2024 3:45 AM CDT [facility] Hemoglobin 11.3(L) 11.9 - 15.8 g/dL 12/09/2024 3:45 AM T [facility] Hematocrit 33.3(L) 34.8 - 46.1 % 12/09/2024 3:45 AM CDT [facility] MCV 89.8 80.0 - 98.0 fL 12/09/2024 3:45 AM [facility] MCH 30.5 26.7 - 33.6 pg 12/09/2024 3:45 AM [facility] MCHC 33.9 31.7 - 36.3 g/dL 12/09/2024 3:45 AM [facility] RDW-CV 13.2 11.3 - 14.8 % 12/09/2024 3:45 AM [facility] Platelet Count 205 150 - 420 x10E9/L 12/09/2024 3:45 AM [facility] MPV 10.4 7.8 - 11.4 fL 12/09/2024 3:45 AM [facility] Neutrophil % 53.9 41.0 - 74.0 % 12/09/2024 3:45 AM [facility] Lymphocyte % 22.2 17.0 - 47.0 % 12/09/2024 3:45 AM [facility] Monocyte % 15.7(H) 3.0 - 11.0 % 12/09/2024 3:45 AM [facility] Eosinophil % 6.7 0.0 - 7.0 % 12/09/2024 3:45 AM [facility] Basophil % 1.0 0.0 - 1.6 % 12/09/2024 3:45 AM [facility] Immature Granulocytes % 0.5 0.0 - 1.0 % 12/09/2024 3:45 AM [facility] Neutrophil Absolute 3.22 1.60 - 7.50 x10E9/L 12/09/2024 3:45 AM [facility] Lymphocyte Absolute 1.33 1.00 - 4.40 x10E9/L 12/09/2024 3:45 AM [facility] Monocyte Absolute 0.94 0.15 - 1.00 x10E9/L 12/09/2024 3:45 AM [facility] Eosinophil Absolute 0.40 0.00 - 0.60 x10E9/L 12/09/2024 3:45 AM [facility] Basophil Absolute 0.06 0.00 - 0.13 x10E9/L 12/09/2024 3:45 AM [facility] Blood BLOOD SPECIMEN / Unknown Lab Venipuncture / Unknown 12/09/2024 3:05 AM CDT 12/09/2024 3:29 AM CDT us Yeyo Theodore II, DO LAB - HEMATOLOGY ORDER ETHAN Final Result [facility] [address] [place] [address], [facility] [phone] * (ABNORMAL) BASIC METABOLIC PANEL (CALCIUM TOTAL) (12/09/2024 3:05 AM CDT) Only the most recent of5 resultswithin the time period is included. BUN 25 7 - 26 mg/dL 12/09/2024 4:47 AM [facility] Creatinine 1.05(H) 0.56 - 0.96 mg/dL 12/09/2024 4:47 AM [facility] Sodium 138 136 - 145 mmol/L 12/09/2024 4:47 AM [facility] Potassium 3.4(L) 3.5 - 4.5 mmol/L 12/09/2024 4:47 AM [facility] Chloride 104 98 - 107 mmol/L 12/09/2024 4:47 AM [facility] CO2 23 22 - 29 mmol/L 12/09/2024 4:47 AM [facility] Glucose 85 70 - 99 mg/dL 12/09/2024 4:47 AM [facility] Calcium 9.0 8.4 - 10.2 mg/dL 12/09/2024 4:47 AM [facility] Anion Gap 11 6 - 16 12/09/2024 4:47 AM [facility] BUN/Creatinine Ratio 24(H) 7 - 23 12/09/2024 4:47 AM [facility] Osmolality Calculated 290 275 - 295 mOsm/kg 12/09/2024 4:47 AM [facility] eGFR by CKD-EPI 55(L) >=90 mL/min/1.7 3 m2 12/09/2024 4:47 AM CDT [facility] Comment:Estimated Glomerular Filtration Rate (eGFR) calculated using the CKD-EPI Creatinine Equation (2020), per the National Kidney Foundation and [place] [employer]ph[employer] recommendations. Blood BLOOD SPECIMEN / Unknown Lab Venipuncture / Unknown 12/09/2024 3:05 AM CDT 12/09/2024 3:29 AM CDT Yeyo Theodore II, DO LAB - CHEMISTRY ORDERA BLES Final Result Performing Organization Address [facility]/ZIP Co de Phone Number [address] [address], [place] [phone] * PHOSPHORUS BLOOD (12/09/2024 3:05 AM CDT) Only the most recent of5 resultswithin the time period is included. Phosphorus 3.9 2.9 - 5.1 mg/dL 12/09/2024 4:47 AM CDT [facility] Blood BLOOD SPECIMEN / Unknown Lab Venipuncture / Unknown 12/09/2024 3:05 AM CDT 12/09/2024 3:29 AM CDT Yeyo Theodore II, DO LAB - CHEMISTRY ORDERA BLES Final Result Performing Organization Address [facility] Co de Phone Number [address] [address], [place] [phone] * MAGNESIUM BLOOD (12/09/2024 3:05 AM CDT) Only the most recent of6 resultswithin the time period is included. Magnesium 2.0 1.6 - 2.6 mg/dL 12/09/2024 4:47 AM CDT [facility] Blood BLOOD SPECIMEN / Unknown Lab Venipuncture / Unknown 12/09/2024 3:05 AM CDT 12/09/2024 3:29 AM CDT Yeyo Theodore II, DO LAB - CHEMISTRY ORDERA BLES Final Result Performing Organization Address City/[facility]/ZIP Co de Phone Number [address] [address], [facility] [phone] * (ABNORMAL) GLUCOSE - POINT OF CARE (12/08/2024 12:02 PM CDT) Only the most recent of2 resultswithin the time period is included. Pathologist [facility] Glucose WB/POC 112(H) 70 - 99 mg/dL 12/08/2024 12:03 PM [facility] Specimen Type Arterial/C apillary 12/08/2024 12:03 PM T [facility] Blood BLOOD SPECIMEN / Unknown 12/08/2024 12:02 PM CDT 12/08/2024 12:03 PM CDT Josh Sherman DO LAB - POINT OF CARE ORDERABLES Final Result Performing Organization Address [facility]/ZIP Co de Phone Number [address] [address], [facility] [phone] * (ABNORMAL) BLOOD GASES ART + COOX PANEL (12/05/2024 8:16 AM CDT) pH Arterial 7.43 7.35 - 7.45 pH 12/05/2024 8:41 AM [facility] pO2 Arterial 79(L) 80 - 100 mmHg 12/05/2024 8:41 AM [facility] pCO2 Arterial 37 35 - 45 mmHg 8:41 AM [facility] HCO3 Arterial 24.6 20.0 - 30.0 mmol/L 12/05/2024 8:41 AM [facility] BE Arterial 0.4 -2.0 - 2.0 mmol/L 12/05/2024 8:41 AM [facility] Oxyhemoglobin Arterial 96.0 % 12/05/2024 8:41 AM [facility] Dexoyhemoglobin (HHB) % 2.0 % 12/05/2024 8:41 AM [facility] Methemoglobin <0.8 0.0 - 2.0 % 12/05/2024 8:41 AM CDT [facility] Carboxyhemoglobin 1.6 0.0 - 2.0 % 2024 8:41 AM [facility] O2 Content Arterial 15.6 Interpret within clinical context ml/dL 12/05/2024 8:41 AM T [facility] Hemoglobin by COOX 11.5(L) 12.0 - 15.6 g/dL 12/05/2024 8:41 AM T [facility] O2 Saturation Arterial 98 90 - 100 % 12/05/2024 8:41 AM [facility] FI O2 Arterial 40.0 % 12/05/2024 8:41 AM [facility] Blood, arterial ARTERIAL BLOOD SPECIMEN / Unknown Arterial Puncture / Unknown 12/05/2024 8:16 AM CDT 12/05/2024 8:38 AM CDT Narrative [facility] - 12/05/2024 8:41 AM CDT Carboxyhemoglobin Normal Concentration: Non-smokers: 0-2%; Smokers: 0-9%; Toxic: >20% us Braulio Martell MD LAB - BLOOD GASES ORDERABLES Fin al Result [address] [address], [facility] [phone] * MRI Brain Wo Contrast (12/04/2024 11:07 PM CDT) Anatomical Region Laterality Modality Head Magnetic Resonan ce 12/05/2024 12:4 9 AM CDT Impressions 12/05/2024 1:00 PM CDT IMPRESSION: 1.There is no evidence of acute intracranial hemorrhage. 2.There is a region of encephalomalacia and gliosis in the cholo-insular left frontal/frontoparietal region, compatible with evolving subacute to chronic left MCA territory infarction. > Dictated by Tavon Pettit MD (residential plumber). > Dictated by Supervisor Process Testing I, Mansi Hart MD have personally reviewed and interpreted this examination/study. > Interpreting Provider: Mansi Hart MD on 12/05/2024 1:00 PM Narrative 12/05/2024 1:00 PM CDT PROCEDURE: MRI BRAIN WO CONTRAST, DATE/TIME OF EXAM: 12/04/2024 11:07 PM, LOCATION [facility] INDICATION: G40.901: Status epilepticus (HCC) ADDITIONAL CLINICAL INFORMATION: Ordering Provider Reason For Exam: R arm and leg weakness history of stroke COMPARISON: MRI brain dated 09/24/2023 TECHNIQUE: MRI of the brain was performed without contrast according to standard protocol. FINDINGS: No evidence of acute or chronic hemorrhage is identified. No evidence of acute cerebral infarction is seen there is a region of encephalomalacia and gliosis involving the cholo-insular left frontal/frontoparietal region, compatible with evolving subacute to chronic left MCA territory infarction. 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 There is associated extensive FLAIR hyperintensity compatible with background edema there is mild ex vacuo dilation of the adjacent left lateral ventricle. There is mild cerebral volume loss with associated ex vacuo ventricular dilatation. No mass lesion, edema, mass effect, or midline shift is seen. T2 hyperintensity within the periventricular and subcortical white matter likely represent sequelae of chronic small vessel ischemic disease. The corpus callosum and sella appear gross unremarkable. The posterior fossa, brainstem, and craniocervical junction appear normal. Other than bilateral cataract extractions, the orbits appear normal. There is mild paranasal sinus disease. The mastoid air cells are grossly clear. Normal flow voids are demonstrated in the carotid and basilar arteries. The calvarium and visualized cervical spine appear grossly unremarkable. Procedure Note Mansi Hart MD - 12/05/2024 PROCEDURE: MRI BRAIN WO CONTRAST, DATE/TIME OF EXAM: 12/04/2024 11:07PM, LOCATION [facility] INDICATION: G40.901: Status epilepticus (HCC) ADDITIONAL CLINICAL INFORMATION: Ordering Provider Reason For Exam: R arm and leg weakness history of stroke COMPARISON: MRI brain dated 09/24/2023 TECHNIQUE: MRI of the brain was performed without contrast according to standard protocol. FINDINGS: No evidence of acute or chronic hemorrhage is identified. No evidence of acute cerebral infarction is seen there is a region of encephalomalaciaand gliosis involving the cholo-insular left frontal/frontoparietal region, compatible with evolving subacute to chronic left MCA territoryinfarction. 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 There is associated extensive FLAIR hyperintensity compatible with background edema there is mild ex vacuo dilation of the adjacentleft lateral ventricle. There is mild cerebral volume loss with associated ex vacuo ventricular dilatation. No mass lesion, edema, mass effect, or midline shift is seen. T2 hyperintensity within the periventricular and subcortical white matter likely represent sequelae of chronic smallvessel ischemic disease. The corpus callosum and sella appear grossunremarkable. The posterior fossa, brainstem, and craniocervical junction appearnormal. Other than bilateral cataract extractions, the orbits appear normal.There is mild paranasal sinus disease. The mastoid air cells are grosslyclear. Normal flow voids are demonstrated in the carotid and basilar arteries.The calvarium and visualized cervical spine appear grossly unremarkable. IMPRESSION: 1.There is no evidence of acute intracranial hemorrhage. 2.There is a region of encephalomalacia and gliosis in the cholo-insular left frontal/frontoparietal region, compatible with evolving subacute to chronic left MCA territory infarction. > Dictated by Tavon Pettit MD (residential plumber). > Dictated by Supervisor Process Testing I, Mansi Hart MD have personally reviewed and interpretedthis examination/study. > Interpreting Provider: Mansi Hart MD on 12/05/2024 1:00 PM Yeyo Theodore II, DO MR ORDERABLES Final Result * XR Abdomen Kub (12/04/2024 8:08 PM CDT) Anatomical Region Laterality Modality Abdomen Digital Radiogra phy 12/04/2024 9:10 PM CDT Impressions 12/04/2024 9:10 PM CDT IMPRESSION: Enteric tube terminates in the gastric body. > Interpreting Provider: Yazmin Adams MD on 12/04/2024 9:10 PM Narrative 12/04/2024 9:10 PM CDT PROCEDURE: XR ABDOMEN KUB DATE/TIME OF EXAM: 12/04/2024 8:08 PM CLINICAL INFORMATION: None relevant/not provided if blank. Indication: G40.901: Status epilepticus (HCC) Additional History: COMPARISON: None. Procedure Note Yazmin Adams MD - 12/04/2024 PROCEDURE: XR ABDOMEN KUB DATE/TIME OF EXAM: 12/04/2024 8:08 PM CLINICAL INFORMATION: None relevant/not provided if blank. Indication: G40.901: Status epilepticus (HCC) Additional History: COMPARISON: None. IMPRESSION: Enteric tube terminates in the gastric body. > Interpreting Provider: Yazmin Adams MD on 12/04/2024 9:10 PM Emad Randee DO DIAGNOSTIC IMAGING ORDERABLES Fi nal Result * CULTURE SPUTUM+GRAM STAIN (12/04/2024 1:48 PM CDT) Culture Rare normal oropharyngeal chao NARDA 12/07/2024 2:24 PM CDT [facility] Gram Stain >= 25 per low power field Polymorphonuclear cells 12/07/2024 2:24 PM CDT [facility] Gram Stain <10 per low power field Squamous epithelial cells 12/07/2024 2:24 PM CDT [facility] Gram Stain No organisms seen 2:24 PM CDT [facility] Microbiology SPUTUM / Unknown Collection / Unknown 12/04/2024 1:48 PM CDT 12/04/2024 2:16 PM CDT Braulio Martell MD LAB - MICROBIOLOGY ORDERABLES Fi nal Result [facility] [address] [place] [address], [facility] [phone] * MRSA PCR (12/04/2024 1:48 PM CDT) MRSA DNA by PCR Not detected Not detected 12/04/2024 9:33 PM CDT [facility] Microbiology SPECIMEN FROM NASAL FOSSAE / Unknown Collection / Unknown 12/04/2024 1:48 PM CDT 12/04/2024 2:16 PM CDT Narrative [facility] - 12/04/2024 9:33 PM CDT Methicillin-resistant Staphylococcus aureus (MRSA) DNA is not detected (presumed not colonized with MRSA). Braulio Martell MD LAB - MICROBIOLOGY ORDERABLES Fi nal Result [facility] [address] [place] [address], [facility] [phone] * CT Chest Wo Contrast (12/04/2024 12:29 PM CDT) Anatomical Region Laterality Modality Chest Computed Tomogra phy 12/04/2024 1:03 PM CDT Impressions 12/04/2024 2:14 PM CDT IMPRESSION: 1.Bilateral dependent opacities are present with debris within the bronchioles which airways which could represent combination of atelectasis and aspiration pneumonia. 2.Cardiomegaly with main pulmonary artery dilation up to 4.3 which could represent pulmonary hypertension. Mild pulmonary edema is suggested. 3.Cholelithiasis. > Dictated by Ciaran Wheeler MD (residential plumber). > Dictated by Supervisor Process Testing I, Clair Key have personally reviewed and interpreted this examination/study. > Interpreting Provider: Clair Key on 12/04/2024 2:14 PM Narrative 12/04/2024 2:14 PM CDT PROCEDURE: CT CHEST WO CONTRAST, DATE/TIME OF EXAM: 12/04/2024 12:29 PM, LOCATION [facility] INDICATION: G40.901: Status epilepticus (HCC) ADDITIONAL CLINICAL INFORMATION: Ordering Provider Reason For Exam: RLL opacity Technologist Note: Additional: None. COMPARISON: None. TECHNIQUE: CT of the chest without intravenous contrast. Coronal and sagittal reformatted images were submitted. FINDINGS: Lungs: Endotracheal tube within the distal trachea, 1.6 cm above the oscar. Bilateral dependent opacities are present with debris within the bronchioles which airways which could represent combination of atelectasis and aspiration. Mild septal thickening. Mosaic attenuation of the lung parenchyma which likely due to expiratory phase. No pneumothorax or pleural effusion. Mediastinum: Cardiomegaly with main pulmonary artery dilation up to 4.3 cm. No pericardial thickening or effusion. Vascular: Atherosclerotic changes of the aorta and its branches, including the coronary arteries. Soft Tissues: The subcutaneous tissues of the body wall appear normal. Bones: Degenerative changes of the spine. Upper Abdomen: Enteric tube partially imaged transversing through the esophagus terminating in the distal stomach. Cholelithiasis without evidence of acute cholecystitis. Procedure Note Clair Mccollum MD - 12/04/2024 PROCEDURE: CT CHEST WO CONTRAST, DATE/TIME OF EXAM: 12/04/2024 12:29PM, LOCATION [facility] INDICATION: G40.901: Status epilepticus (HCC) ADDITIONAL CLINICAL INFORMATION: Ordering Provider Reason For Exam: RLL opacity Technologist Note: Additional: None. COMPARISON: None. TECHNIQUE: CT of the chest without intravenous contrast. Coronal and sagittal reformatted images were submitted. FINDINGS: Lungs: Endotracheal tube within the distal trachea, 1.6 cm above the oscar. Bilateral dependent opacities are present with debris within the bronchioles which airways which could represent combination ofatelectasis and aspiration. Mild septal thickening. Mosaic attenuation of the lung parenchyma which likely due to expiratory phase. No pneumothorax orpleural effusion. Mediastinum: Cardiomegaly with main pulmonary artery dilation up to 4.3cm. No pericardial thickening or effusion. Vascular: Atherosclerotic changes of the aorta and its branches,including the coronary arteries. Soft Tissues: The subcutaneous tissues of the body wall appear normal. Bones: Degenerative changes of the spine. Upper Abdomen: Enteric tube partially imaged transversing through the esophagus terminating in the distal stomach. Cholelithiasis without evidence of acute cholecystitis. IMPRESSION: 1.Bilateral dependent opacities are present with debris within the bronchioles which airways which could represent combination ofatelectasis and aspiration pneumonia. 2.Cardiomegaly with main pulmonary artery dilation up to 4.3 which could represent pulmonary hypertension. Mild pulmonary edema is suggested. 3.Cholelithiasis. > Dictated by Ciaran Wheeler MD (residential plumber). > Dictated by Supervisor Process Testing I, Clair Key have personally reviewed and interpreted this examination/study. > Interpreting Provider: Clair Key on 12/04/2024 2:14 PM [address] Martell MD CT ORDERABLES Final Result * (ABNORMAL) URINALYSIS REFLEX TO MICROSCOPIC NO CULTURE (12/04/2024 12:02 PM CDT) Color UA Yellow Yellow, Straw 12/04/2024 12:44 PM [facility] Clarity UA Turbid(A) Clear 12/04/2024 12:44 PM [facility] Glucose UA Normal Normal 12/04/2024 12:44 PM [facility] Bilirubin UA Negative Negative 12/04/2024 12:44 PM [facility] Ketone UA Negative Negative 12/04/2024 12:44 PM [facility] Specific [place] UA 1.020 1.005 - 1.030 12/04/2024 12:44 PM [facility] Blood UA Negative Negative 12/04/2024 12:44 PM [facility] pH UA 5.5 5.0 - 8.0 12/04/2024 12:44 PM [facility] Protein UA Negative Negative 12/04/2024 12:44 PM [facility] Urobilinogen UA Normal Normal mg/dL 12/04/2024 12:44 PM [facility] Nitrite UA Negative Negative 12/04/2024 12:44 PM [facility] Leukocyte Esterase UA 500 RONAN/uL(A) Negative 12/04/2024 12:44 PM [facility] RBC UA 6-10(A) 0 - 5 # /hpf 12/04/2024 12:44 PM [facility] WBC UA 21-50(A) 0 - 5 # /hpf 12/04/2024 12:44 PM [facility] Bacteria UA Trace(A) None Seen 12/04/2024 12:44 PM [facility] Squamous Epithelial Cells 3-5 0 - 5 /hpf 12/04/2024 12:44 PM [facility] Mucus UA 1+ /LPF 12/04/2024 12:44 PM [facility] Urine URINE SPECIMEN OBTAINED BY CLEAN CATCH PROCEDURE / Unknown Collection / Unknown 12/04/2024 12:02 PM CDT 12/04/2024 12:05 PM T us Yeyo Theodore II, DO LAB - URINALYSIS ORDER ETHAN Final Result [facility] [address] [place] [address], [facility] [phone] * XR Chest 1Vw Portable (12/04/2024 10:49 AM CDT) Anatomical Region Laterality Modality Chest Digital Radiogra phy 12/04/2024 4:16 PM CDT Narrative 12/05/2024 9:13 AM CDT PROCEDURE: XR CHEST 1VW PORTABLE, DATE/TIME OF EXAM: 12/04/2024 10:49 AM, LOCATION [facility] INDICATION: G40.901: Status epilepticus (HCC) ADDITIONAL CLINICAL INFORMATION: Ordering Provider Reason For Exam: ETT placement Technologist Note: Additional: COMPARISON: Chest x-ray from 09/25/2023 TECHNIQUE: Frontal radiograph of the chest. FINDINGS/IMPRESSION: *Endotracheal tube terminates approximately 1.2 cm above the level of the oscar. Retraction of 3-4 cm is recommended for mid thoracic trachea placement. *Enteric tube terminates within the stomach. *Loop recorder overlies the left cardiac border. Cardiomegaly with mild pulmonary edema. Retrocardiac opacities may represent airspace disease and/or pulmonary edema and atelectasis. Small left pleural effusion. No pneumothorax is visible. The cardiomediastinal silhouette is partially obscured. No displaced fractures are identified. Report dictated by Jairo Delatorre MD, (Supervisor Process Testing). > Dictated by Supervisor Process Testing I, Gudelia Benítez MD have personally reviewed and interpreted this examination/study. > Interpreting Provider: Gudelia Benítez MD on 12/05/2024 9:13 AM Procedure Note Gudelia Benítez MD - 12/05/2024 PROCEDURE: XR CHEST 1VW PORTABLE, DATE/TIME OF EXAM: 12/04/2024 10:49AM, LOCATION [facility] INDICATION: G40.901: Status epilepticus (HCC) ADDITIONAL CLINICAL INFORMATION: Ordering Provider Reason For Exam: ETT placement Technologist Note: Additional: COMPARISON: Chest x-ray from 09/25/2023 TECHNIQUE: Frontal radiograph of the chest. FINDINGS/IMPRESSION: *Endotracheal tube terminates approximately 1.2 cm above the level ofthe oscar. Retraction of 3-4 cm is recommended for mid thoracic trachea placement. *Enteric tube terminates within the stomach. *Loop recorder overlies the left cardiac border. Cardiomegaly with mild pulmonary edema. Retrocardiac opacities may represent airspace disease and/or pulmonary edema and atelectasis. Small left pleural effusion. No pneumothorax is visible. The cardiomediastinal silhouette is partially obscured. No displaced fractures are identified. Report dictated by Jairo Delatorre MD, (Supervisor Process Testing). > Dictated by Supervisor Process Testing I, Gudelia Benítez MD have personally reviewed and interpreted this examination/study. > Interpreting Provider: Gudelia Benítez MD on 12/05/2024 9:13 AM Yeyo Theodore II, DO DIAGNOSTIC IMAGING ORD ERABLES Final Result * TSH REFLEX FREE T4 (12/04/2024 9:51 AM CDT) TSH 2.681 0.350 - 4.940 uIU/mL 12/04/2024 11:12 AM CDT [facility] Blood BLOOD SPECIMEN / Unknown Venipuncture / Unknown 12/04/2024 9:51 AM CDT 12/04/2024 10:20 AM CDT Yeyo Theodore II, DO LAB - CHEMISTRY ORDERA BLES Final Result [address] [address], [facility] [phone] * HEMOGLOBIN A1C (12/04/2024 9:51 AM CDT) Hemoglobin A1c 5.3 <=5.6 % 12/04/2024 1:57 PM CDT [facility] Estimated Average Glucose 105 mg/dL 12/04/2024 1:57 PM CDT [facility] Comment: HbA1c Interpretation: Normal : < 5.7% Pre-diabetes: 5.7-6.4% Diabetes: Equal to or greater than 6.5% Test results diagnostic of diabetes should be repeated for confirmation. Treatment target values recommended by ADA and other clinical organizations should be used to evaluate metabolic control in patients. Reference: [place] [employer], Standards of Care in Diabetes -2020 In patients 70 years and older consider HbA1c target range of 7.0-7.5% (Reference: Bayron Joseph et al. ZOLTAN. 2012) The Sebia assay for the measurement of HbA1c is a National Glycohemoglobin Standardization Program (NGSP) certified method. Blood BLOOD SPECIMEN / Unknown Venipuncture / Unknown 12/04/2024 9:51 AM CDT 12/04/2024 10:18 AM CDT Yeyo Theodore II, DO LAB - CHEMISTRY ORDERA BLES Final Result [facility] [address] [place] [id number], [facility] [phone] * (ABNORMAL) RENAL FUNCTION PANEL (12/04/2024 9:51 AM CDT) BUN 13 7 - 26 mg/dL 12/04/2024 10:[address] [facility] Creatinine 0.91 0.56 - 0.96 mg/dL 12/04/2024 10:58 AM [facility] Sodium 140 136 - 145 mmol/L 12/04/2024 10:58 AM [facility] Potassium 2.8(L) 3.5 - 4.5 mmol/L 12/04/2024 10:58 AM [facility] Chloride 110(H) 98 - 107 mmol/L 12/04/2024 10:[address] [facility] CO2 23 22 - 29 mmol/L 12/04/2024 10:[address] [facility] Glucose 90 70 - 99 mg/dL 12/04/2024 10:58 AM [facility] Albumin 2.9(L) 3.4 - 5.0 g/dL 12/04/2024 10:58 AM [facility] Calcium 7.7(L) 8.4 - 10.2 mg/dL 12/04/2024 10:58 AM [facility] Phosphorus 2.9 2.9 - 5.1 mg/dL 12/04/2024 10:58 AM CDT [facility] Anion Gap 7 6 - 16 12/04/2024 10:58 AM T [facility] BUN/Creatinine Ratio 14 7 - 23 12/04/2024 10:58 AM T [facility] Osmolality Calculated 290 275 - 295 mOsm/kg 12/04/2024 10:58 AM T [facility] eGFR by CKD-EPI 66(L) >=90 mL/min/1.7 3 m2 12/04/2024 10:58 AM T [facility] Comment:Estimated Glomerular Filtration Rate (eGFR) calculated using the CKD-EPI Creatinine Equation (2020), per the National Kidney Foundation and [place] Society of Nephrology recommendations. Blood BLOOD SPECIMEN / Unknown Venipuncture / Unknown 12/04/2024 9:51 AM CDT 12/04/2024 10:20 AM CDT us Yeyo Theodore II, DO LAB - CHEMISTRY ORDERA BLES Final Result [facility] [address] [place] [address], [facility] [phone] * ID ILR DEVICE INTERROGAT REMOTE (2024 1:19 PM CDT) Narrative Braulio Saxena MD - 2024 1:19 PM CDT Braulio Saxena MD 2024 1:19 PM Dear Gudelia Carlton, I reviewed the remote interrogation of your loop recorder. Your device's sensing is appropriate and stable. During this most recent monitored period ending on 09/26/2024 your atrial fibrillation/tachycardia burden was 0% and you had no significant arrhythmias. Device function is normal, no programming changes are required, and no medications will need to be changed. Please call our offices if you have any further questions. Sincerely, Braulio Saxena 2024 us Braulio Saxena MD PROCEDURE/MINOR SURGICAL ORDERAB LES Final Result * CARDIAC PROCEDURE ORDER (09/26/2024) Narrative 09/26/2024 Ordered by an unspecified provider. us Scanned Document CARDIAC SERVICES ORDERABLES Fin al Result * ID ILR DEVICE INTERROGAT REMOTE (09/23/2024 6:21 AM CDT) Narrative Braulio Saxena MD - 09/23/2024 6:21 AM CDT Braulio Saxena MD 09/23/2024 6:22 AM Dear Gudelia Carlton, I reviewed the remote interrogation of your loop recorder. Your device's sensing is largely appropriate and stable. During this most recent monitored period ending on 08/22/2024 your atrial fibrillation/tachycardia burden was 0% and you had no significant arrhythmias. An episode of oversensing was mislabeled as an tachycardic episode. Device function is normal, no programming changes are required, and no medications will need to be changed. Please call our offices if you have any further questions. Sincerely, Braulio Saxena 09/23/2024 Braulio Saxena MD PROCEDURE/MINOR SURGICAL ORDERAB LES Final Result * LIPID PROFILE (09/25/2023 6:14 AM CDT) [facility] Cholesterol Total 120 <200 mg/dL 09/25/2023 6:53 AM [facility] HDL 45 >40 mg/dL 09/25/2023 6:53 AM [facility] Comment: ATP III Classification of HDL Cholesterol: <40 mg/dL: Considered a major risk factor. >60 mg/dL: Considered a negative risk factor. LDL Calculated 62 <100 mg/dL 09/25/2023 6:53 AM [facility] Comment: ATP III Classification of LDL Cholesterol: <100 mg/dL: Optimal 100 - 129 mg/dL: Near Optimal/Above Optimal 130 - 159 mg/dL: Borderline High 160 - 189 mg/dL: High >190 mg/dL: Very High Triglycerides 67 <150 mg/dL 09/25/2023 6:53 AM [facility] Comment: ATP III Classification of Triglycerides: <150 mg/dL: Normal 150 - 199 mg/dL: Borderline High 200 - 400 mg/dL: High >500 mg/dL: Very High Blood BLOOD SPECIMEN / Unknown Venipuncture / Unknown 09/25/2023 6:14 AM CDT 09/25/2023 6:21 AM CDT us Kyle Menendez DO LAB - CHEMISTRY ORDERABLES F inal Result [facility] [address] [place] [address], [place] [phone] from Last 3 Months or Most Recently Relevant to Health Maintenance Insurance [employer] MEDICARE ADV Advance Directives Documents on File Type Date Recorded 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
[2024-12-18 20:46] LABS: Alanine Aminotransferase 20 U/L (6-35); Albumin Level 4.0 g/dL (3.5-5.1); Alkaline Phosphatase 86 U/L (38-126); Anion Gap 10 mmol/L (4-12); Aspartate Amino Transferase 27 U/L (14-36); Bilirubin,Total 0.6 mg/dL (0.2-1.3); Blood Urea Nitrogen 21 mg/dL (7-17); Calcium 8.9 mg/dL (8.4-10.2); Carbon Dioxide 24 mmol/L (22-30); Chloride 95 mmol/L (98-107); Estimated CRCL calculation 43 ml/min; Estimated Glomerular Filt Rate 40; Glucose 124 mg/dL (65-110); Potassium 3.4 mmol/L (3.4-5.0); Sodium 129 mmol/L (137-145); Total Protein 6.9 g/dL (6.3-8.2)
--- NOTE | 2024-12-18 21:11 | ED.GENADULT ---
HPI - General Adult General Chief complaint: Weakness Stated complaint: WEAKNESS Time Seen by Provider: 12/18/24 19:57 History of Present Illness HPI narrative: Patient is a 74-year-old female who presents ER with reports of weakness. Began this evening. She feels dry. She has been taking oxybutynin which she feels like dries her out. Recently was hospitalized at [facility] after having a generalized tonic clonic seizure in our ER being transferred. She is found to have a UTI and was started on Keppra. She has been it [facility] inpatient re[facility] and was discharged 2 days ago. No new fevers or chills or sweats. No chest pain or chest pressure. No dysuria. Related Data Home Medications ?Medication ?Instructions ?Recorded ?Confirmed ?Last Taken ?Type mecobalamin (vitamin B12) 1,000 1,000 mcg PO DAILY 10/21/23 12/08/24 Unknown History mcg chewable tablet acetaminophen 325 mg capsule 650 mg PO Q6H PRN pain 12/08/24 12/08/24 Unknown History polyethylene glycol 3350 17 gram 17 g PO DAILY 12/08/24 12/08/24 12/08/24 History oral powder packet (HealthyLax) sennosides 8.6 mg capsule (senna) 8.6 mg PO DAILY 12/08/24 12/08/24 Unknown History Allergies Allergy/AdvReac Type Severity Reaction Status Date / Time No Known Allergies Allergy Mild Verified 08/24/24 09:33 Review of Systems Review of Systems: All systems reviewed & are unremarkable except as noted in HPI and below Constitutional: Constitutional: Reports no additional constitutional complaints ENT: Reports system reviewed and no additional complaints, except as documented Cardiovascular: Cardiovascular: Reports no additional cardiovascular complaints Respiratory: Respiratory: Reports no additional respiratory complaints Genitourinary: Genitourinary: Reports no additional female genitourinary complaints Musculoskeletal: Musculoskeletal: Reports no additional musculoskeletal complaints [facility] Past Medical History Medical History (Updated 12/18/24 @ 21:44 by Abdelrahman Martinez MD) Atrial fibrillation Morbid obesity HLD (hyperlipidemia) Eczema Laryngopharyngeal reflux Lymphedema of both lower extremities Chronic venous insufficiency Left middle cerebral artery stroke (~09/2023) Sleep apnea Essential (primary) hypertension Prediabetes Thyroid disorder Chronic kidney disease, stage 3 (moderate) Hypothyroidism, unspecified Mixed hyperlipidemia Vitamin D deficiency, unspecified Surgical History Surgical History History of cataract surgery Family History Family History Mother Family history of coronary artery disease Father Family history of coronary artery disease Social History Social History Smoking status: Never smoker Second hand tobacco smoke exposure: No Alcohol intake: never Substance use: never Substance use type: does not use Do You Feel Safe in your Home?: Yes Lack of Transportation: No Lack of Food: Never True Current Housing: I Have Housing Concerned About Future Housing: No Difficulty Paying Gas/Electric Bills: No Difficulty Paying for Meds: No Currently Unemployed: No Education: Master's Degree or Higher Difficulty w/ Childcare or Family Care: No Living arrangements: with family 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 HEAD: Normocephalic, atraumatic. ENT: Mucous membranes moist. CHEST: Clear to auscultation. No respiratory distress. HEART: Regular rate and rhythm. Normal peripheral pulses. ABDOMEN: Soft, nontender, nondistended. EXTREMITIES: Normal range of motion. No edema. SKIN: Warm, dry, no rash. NEURO: Alert and oriented x3. PSYCH: Normal mood and affect. Course Course Emergency Course: Hydrated, feels improved, informed of results. D/c home. Vital Signs Vital signs: Vital Signs Temperature 97.3 F L 12/18/24 19:51 Pulse Rate 71 12/18/24 19:51 Respiratory Rate 18 12/18/24 19:51 Blood Pressure 108/57 L 12/18/24 19:51 Pulse Oximetry 97 12/18/24 19:51 Temperature 97.3 F L 12/18/24 19:51 Pulse Rate 79 12/18/24 21:37 Respiratory Rate 17 12/18/24 21:37 Blood Pressure 113/71 12/18/24 21:37 Pulse Oximetry 96 12/18/24 21:37 Medical Decision Making Differential Diagnosis Differential Diagnosis: Dehydration, UTI, electrolyte imbalance Vital Signs Vital Signs: Vital Signs Temperature 97.3 F L 12/18/24 19:51 Pulse Rate 71 12/18/24 19:51 Respiratory Rate 18 12/18/24 19:51 Blood Pressure 108/57 L 12/18/24 19:51 Pulse Oximetry 97 12/18/24 19:51 Temperature 97.3 F L 12/18/24 19:51 Pulse Rate 79 12/18/24 21:37 Respiratory Rate 17 12/18/24 21:37 Blood Pressure 113/71 12/18/24 21:37 Pulse Oximetry 96 12/18/24 21:37 Lab Data 12/18/24 20:27 12/18/24 20:22 Labs: Lab Results 12/18/24 12/18/24 12/18/24 Range/Units 20:22 20:27 21:05 WBC 5.5 (4.5-10.0) K/mm3 RBC 3.87 L (4.2-5.4) M/mm3 Hgb 11.6 L (12.0-15.0) g/dL Hct 35.2 L (37.0-47.0) % MCV 91.0 (80-100) fl MCH 30.0 (26-34) pg MCHC 33.0 (32-36) g/dl RDW 13.5 (11.5-14.5) % Plt Count 246 (150-375) k/mm3 MPV 10.0 (7.4-10.4) fl Immature Gran % (Auto) 0.7 H (0-0.5) % Neut % (Auto) 57.9 (45.5-73.1) % Lymph % (Auto) 24.4 (18.3-44.2) % [place] % (Auto) 12.1 H (2.6-8.5) % Eos % (Auto) 4.0 (0-4.4) % Baso % (Auto) 0.9 (0.2-1.2) % Lymph # (Auto) 1.35 (0.9-3.2) K/mm3 [place] # (Auto) 0.7 H (0.1-0.6) K/mm3 Eos # (Auto) 0.2 (0-0.3) K/mm3 Baso # (Auto) 0.1 (0.0-0.1) K/mm3 Abs Immat Gran (auto) 0.04 H (0.00-0.031) K/mm3 Absolute Neuts (auto) 3.2 (1.3-6.7) K/mm3 Absolute Nucleated RBC 0.000 (0.0-0.012) K/mm3 Nucleated RBC % 0.0 (0.0-0.2) % Sodium 129 L (137-145) mmol/L Potassium 3.4 (3.4-5.0) mmol/L Chloride 95 L (98-107) mmol/L Carbon Dioxide 24 (22-30) mmol/L Anion Gap 10 (4-12) mmol/L BUN 21 H (7-17) mg/dL Creatinine 1.30 H (0.7-1.0) mg/dL Estim Creat Clear Calc 43 ml/min Estimated GFR 40 L (59 - ) Glucose 124 H (65-110) mg/dL Lactic Acid 1.4 (0.7-2.0) mmol/L Calcium 8.9 (8.4-10.2) mg/dL Total Bilirubin 0.6 (0.2-1.3) mg/dL AST 27 (14-36) U/L ALT 20 (6-35) U/L Alkaline Phosphatase 86 (38-126) U/L Total Protein 6.9 (6.3-8.2) g/dL Albumin 4.0 (3.5-5.1) g/dL Urine Color Yellow (Yellow) Urine Appearance Cloudy H (Clear) Urine pH 5.0 (5.0-9.0) Ur Specific [place] 1.011 (1.001-1.035) Urine Protein Negative (Negative) mg/dL Urine Glucose (UA) Negative (Negative) mg/dL Urine Ketones Negative (Negative) mg/dL Ur Blood (Man) Negative (Negative) Urine Nitrate Negative (Negative) Urine Bilirubin Negative (Negative) Urine Urobilinogen 1.0 (<2.0) mg/dL Add Ur Microanalysis Reviewed Leukocyte Esterase Rfl 1+ H (Negative) RONAN/UL Urine RBC 6-10 H (0-2) /hpf Urine WBC 0-5 (0-3) /hpf Ur Squamous Epith Cells Few (Few) /hpf Urine Bacteria None seen /hpf Urine Casts 11-20 Discharge Plan Discharge Clinical Impression: Dehydration Patient Disposition: Home Condition: Stable Instructions: Dehydration (ED) Additional Instructions: Return ER if you have increased weakness, you lose consciousness, you fall and injur yourself, or you have additional concerns. Patient Language: Palauan Prescriptions: No Action mecobalamin (vitamin B12) 1,000 mcg tablet,chewable 1,000 mcg PO DAILY pantoprazole 20 mg tablet,delayed release (DR/EC) 20 mg PO QAM Qty: 90 1RF (DME) compression stockings 15-20 mm of hg See Rx Instructions .Route .MEDSUPPLY Qty: 1 0RF Rx Instructions: As directed potassium chloride 10 mEq tablet extended release 10 meq PO DAILY Qty: 90 1RF olmesartan-hydrochlorothiazide 40-25 mg tablet 1 tablet PO DAILY Qty: 90 1RF cholecalciferol (vitamin D3) 50 mcg (2,000 unit) tablet 50 mcg PO DAILY Qty: 90 3RF acetaminophen 325 mg capsule 650 mg PO Q6H PRN (Reason: pain) polyethylene glycol 3350 [HealthyLax] 17 gram powder in packet 17 g PO DAILY senna 8.6 mg capsule 8.6 mg PO DAILY oxybutynin chloride 5 mg Tablet 5 mg PO TID 30 Days Qty: 90 0RF atorvastatin 40 mg tablet 40 mg PO QHS Qty: 30 0RF amlodipine 10 mg tablet 10 mg PO DAILY Qty: 30 0RF levothyroxine 50 mcg tablet 50 mcg PO DAILY 30 Days Qty: 30 0RF allopurinol 300 mg tablet 300 mg PO DAILY Qty: 30 0RF escitalopram oxalate 5 mg tablet 2.5 mg PO DAILY 30 Days Qty: 15 0RF levetiracetam [Keppra] 1,000 mg tablet 1,000 mg PO BID 30 Days Qty: 60 0RF aspirin [Children's Aspirin] 81 mg Tablet,Chewable 81 mg PO DAILY Qty: 30 0RF Follow-up/Referrals: Naina Felipe MD [Primary Care Provider, Family Practice] - 1 Week
[2024-12-18 21:12] VITALS: PULSE 66; RESP 15; O2SAT 100
[2024-12-18 21:15] VITALS: PULSE 68; RESP 19; O2SAT 99
[2024-12-18 21:31] LABS: Add Urine Microscopic? YES; Appearance Urine Cloudy (Clear); Glucose Urine UA Negative (Negative); Leukocyte Esterase Ur 1+ LEU/UL (Negative); Need Manual Microscopic Reviewed; Nitrate Urine Negative (Negative); Specific Grav Ur 1.011 (1.001-1.035)
[2024-12-18 21:37] VITALS: BP 113/71; PULSE 79; RESP 17; O2SAT 96
== END 2024-12-18 21:59 | disposition home or self-care (01) ==
PROVIDERS: Emergency Provider Emergency Medicine; PCP Family Medicine
DX: E86.0 Dehydration (principal); I48.91 Unspecified atrial fibrillation; I87.2 Venous insufficiency (chronic) (peripheral); I12.9 Hypertensive chronic kidney disease with stage 1 through stage 4 chronic kidney disease, or unspecified chronic kidney disease; N18.30 Chronic kidney disease, stage 3 unspecified; R73.03 Prediabetes; E03.9 Hypothyroidism, unspecified; E78.2 Mixed hyperlipidemia; E55.9 Vitamin D deficiency, unspecified; E66.01 Morbid (severe) obesity due to excess calories; Z68.41 Body mass index [BMI] 40.0-44.9, adult; K21.9 Gastro-esophageal reflux disease without esophagitis; Z86.73 Personal history of transient ischemic attack (TIA), and cerebral infarction without residual deficits; Z98.49 Cataract extraction status, unspecified eye
CPT/HCPCS: 36415; 80053; 81001; 83605; 85025; 87086; 96360; 99283; J7030

== ENCOUNTER 2024-12-27 15:19 | Outpatient (CLI) | payer MEDICARE, SELFPAY ==
[2024-12-27 19:08] LABS: Alanine Aminotransferase 12 U/L (6-35); Albumin Level 3.9 g/dL (3.5-5.1); Alkaline Phosphatase 82 U/L (38-126); Anion Gap 7 mmol/L (4-12); Aspartate Amino Transferase 25 U/L (14-36); Bilirubin,Total 0.5 mg/dL (0.2-1.3); Blood Urea Nitrogen 13 mg/dL (7-17); Calcium 8.6 mg/dL (8.4-10.2); Carbon Dioxide 30 mmol/L (22-30); Chloride 93 mmol/L (98-107); Estimated Glomerular Filt Rate 57; Glucose 92 mg/dL (65-110); Potassium 3.4 mmol/L (3.4-5.0); Sodium 130 mmol/L (137-145); Total Protein 6.6 g/dL (6.3-8.2)
--- OUTSIDE RECORDS SUMMARY | 2024-12-28 14:53 | XMS_ITS | Clinical Summary ---
Author Organization [facility] Address [address] [place] [id number] Care Team Providers Care Uppers Edge Burnisher Name Role Phone Unavailable Primary Care Provider [...]
--- OUTSIDE RECORDS SUMMARY | 2024-12-28 14:53 | XMS_ITS | Clinical Summary ---
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 TAKE WITH FOOD. 21 Tablet 2 9:26 AM CDT 10/04/19 22 Active allopurinoL (ZYLOPRIM) 300 mg tablet Take 1 Tablet (300 mg) by mouth daily. 90 Tablet 1 3 5:08 PM CDT 06/11/19 23 Active cholecalcifero l, Vitamin D3, 50 mcg (2,000 unit) Tablet Take 1 Tablet (2,000 Units) by mouth daily. 90 Tablet 2 4 2:25 PM DINKEY ENGINE MECHANIC 09/24/19 23 Active carvediloL (COREG) 25 mg tablet Take 0.5 Tablets (12.5 mg) by mouth every 12 hours with a meal/food. 90 Tablet 1 4 2:25 PM DINKEY ENGINE MECHANIC 12/22/19 23 Active levothyroxine 50 mcg tablet Take 1 Tablet (50 mcg) by mouth daily. 90 Tablet 1 4 2:25 PM DINKEY ENGINE MECHANIC 12/22/19 23 Active ezetimibe-simv astatin (VYTORIN) 10-40 mg tablet Take 1 Tablet by mouth daily. 30 Tablet 4 2:25 PM DINKEY ENGINE MECHANIC 02/12/20 23 Active omeprazole (PriLOSEC) 40 mg Capsule, Delayed Release(E.C.) Take 1 Capsule (40 mg) by mouth daily in the morning, 30 minutes before morning meal 90 Capsule 4 4 3:16 PM CDT 05/18/19 24 Active carvediloL (COREG) 25 mg tablet Take 0.5 Tablets (12.5 mg) by mouth every 12 hours. Must administer with meal/food 90 Tablet 1 4 12:18 PM CDT 07/23/19 24 Active cyanocobalamin (VITAMIN B-12) 1,000 mcg Tablet, Sublingual Dissolve 1 tablet by mouth once daily 90 Tablet 1 07/23/19 24 Active ezetimibe-simv astatin (VYTORIN) 10-40 mg tablet Take 1 Tablet by mouth daily. Due for an appointment. Last refill until seen. 30 Tablet 4 3:34 PM CDT 07/23/19 24 Active levothyroxine 50 mcg tablet Take 1 Tablet (50 mcg) by mouth daily. 90 Tablet 1 4 1:00 PM DINKEY ENGINE MECHANIC 07/23/19 24 Active aspirin (LEILA CHEWABLE) 81 mg Tablet, Chewable Take 1 Tablet (81 mg) by mouth daily. 30 Tablet 4 3:51 PM CDT 10/07/19 24 Active atorvastatin (LIPITOR) 40 mg tablet Take 1 Tablet (40 mg) by mouth daily at bedtime. 30 Tablet 10/07/19 24 Active losartan (COZAAR) 100 mg tablet Take 1 Tablet (100 mg) by mouth daily. 30 Tablet 10/07/19 24 Active sennosides (SENOKOT) 8.6 mg tablet Take 1 Tablet (8.6 mg) by mouth daily. 30 Tablet 10/07/19 24 Active mirtazapine (REMERON) 15 mg tablet Take 0.5 Tablets (7.5 mg) by mouth daily at bedtime. 15 Tablet 4 3:51 PM CDT 10/07/19 24 Active pantoprazole (PROTONIX) 40 mg Tablet, Delayed Release (E.C.) Take 1 Tablet (40 mg) by mouth daily. 30 Tablet 4 3:51 PM CDT 10/07/19 24 Active polyethylene glycol (MIRALAX) 17 gram Powder in Packet Drink 1 Packet (17 Grams) by mouth daily as directed 30 Each 10/07/19 24 Active escitalopram oxalate (LEXAPRO) 5 mg tablet Take one tablet (5 mg) orally daily 90 Tablet 1 12/28/19 24 Active pantoprazole (PROTONIX) 20 mg Tablet, Delayed Release (E.C.) Take 1 Tablet (20 mg) by mouth daily in the morning. 90 Tablet 1 5 11:28 AM CDT 01/28/20 24 Active potassium CHLORIDE (KLOR-CON) 10 mEq Extended Release tablet Take 1 Tablet (10 mEq) by mouth daily. 90 Tablet 1 5 6:32 PM CDT 04/11/19 25 Active olmesartan-hyd roCHLOROthiazi de (BENICAR-HCT) 40-25 mg tablet Take 1 Tablet by mouth daily. 90 Tablet 1 5 12:43 PM CDT 05/20/19 25 Active cholecalcifero l, Vitamin D3, 50 mcg (2,000 unit) Tablet Take 1 Tablet (2,000 Units) by mouth daily. 90 Tablet 3 5 6:58 PM CDT 05/23/19 25 Active omeprazole (PriLOSEC) 40 mg Capsule, Delayed Release(E.C.) Take 1 Capsule (40 mg) by mouth daily 30 minutes before breakfast. 90 Capsule 4 5 11:42 AM CDT 06/30/19 25 Active sodium sulfate-potass ium CHLORIDE-magne sium SULFATE (Sutab) 1.479-0.188- 0.225 gram Tablet TAKE DIRECTED ON PACKAGE. FOLLOW INSTRUCTIONS GIVEN TO YOU BY PROVIDER. 24 Tablet 07/21/19 25 Active allopurinoL (ZYLOPRIM) 300 mg tablet Take 1 Tablet (300 mg) by mouth daily. 90 Tablet 1 5 3:25 PM CDT 08/08/19 25 Active pantoprazole (PROTONIX) 20 mg Tablet, Delayed Release (E.C.) Take 1 Tablet (20 mg) by mouth daily in the morning. 90 Tablet 1 5 7:06 PM CDT 08/25/19 25 Active triamcinolone acetonide (KENALOG) 0.5 % Cream APPLY TO AFFECTED AREA(S) TWO TIMES DAILY DIRECTED. 15 Gram 1 5 6:58 PM CDT 08/25/19 25 Active levothyroxine 50 mcg tablet Take 1 Tablet (50 mcg) by mouth daily. 90 Tablet 1 5 6:49 PM CDT 10/20/19 25 Active atorvastatin (LIPITOR) 40 mg tablet Take 1 Tablet (40 mg) by mouth daily at bedtime. 100 Tablet 1 5 2:03 PM CDT 11/28/19 Active allopurinoL (ZYLOPRIM) 300 mg tablet Take 1 Tablet (300 mg) by mouth daily. 30 Tablet 5 2:03 PM CDT 12/16/19 Active atorvastatin (LIPITOR) 40 mg tablet Take 1 Tablet (40 mg) by mouth daily. 30 Tablet 12/16/19 Active oxyBUTYnin (DITROPAN) 5 mg tablet Take 1 Tablet (5 mg) by mouth 3 times daily. 90 Tablet 5 2:03 PM CDT 12/16/19 Active levothyroxine 50 mcg tablet Take 1 Tablet (50 mcg) by mouth daily. 30 Tablet 12/16/19 Active escitalopram oxalate (LEXAPRO) 5 mg tablet Take 0.5 Tablets (2.5 mg) by mouth daily. 15 Tablet 5 2:03 PM CDT 12/16/19 Active levETIRAcetam (KEPPRA) 1,000 mg tablet Take 1 Tablet (1,000 mg) by mouth 2 times daily. 60 Tablet 5 2:03 PM CDT 12/16/19 Active carvediloL (COREG) 6.25 mg tablet Take 1 Tablet (6.25 mg) by mouth every 12 hours WITH A MEAL/FOOD. 180 Tablet 1 5 2:33 PM DINKEY ENGINE MECHANIC 12/28/19 Active rivaroxaban (Xarelto) 20 mg Tablet Take 1 Tablet (20 mg) by mouth daily with supper. 90 Tablet 5 2:33 PM DINKEY ENGINE MECHANIC 12/28/19 Active carvediloL (COREG) 12.5 mg tablet Take 1 tablet (12.5 mg) by mouth every 12 hours; must administer with a meal/food 180 Tablet 2 5 6:58 PM CDT 12/28/19 Discontinue d(Dose/form adjustment) amLODIPine (NORVASC) 10 mg tablet Take 1 Tablet (10 mg) by mouth daily. 90 Tablet 1 5 11:42 AM CDT 10/28/19 Discontinue d(Reorder) amLODIPine (NORVASC) 10 mg tablet Take 1 Tablet (10 mg) by mouth daily. 30 Tablet 12/16/19 25 025 Discontinue d(Told by provider to stop) Encounters Date Type Department Care Team Description [...]
--- OUTSIDE RECORDS SUMMARY | 2024-12-28 14:53 | XMS_ITS | Clinical Summary ---
Author Organization [facility] algrano Address [address] [place] [address] Care Team Providers Care Safety Deposit Supervisor Name Role Phone Mono Felipe MD Primary Care Provider Source Comments [facility] algrano,non-owned Affiliates and Associated Physician Practices is amultiple site organization consisting of ambulatory clinics and hospital sitesin [place], [place], [place] and [place]. This disclosure is being madepursuant to the Care Everywhere program and may not contain all information available regarding this patient. Last updated 17.[facility] al[facility]ano Allergies No known active allergies Medications * [...] unremarkable PLAN -Continue with aspirin and Lipitor Hypothyroid 12/05/2024 Assessment & Plan (12/09/2024 12:41 [...] grossly unremarkable -continue with aspirin and Lipitor Resolved Problems Problem Noted Date Diagnosed Date Resolved Date UTI (urinary tract infection) 12/05/2024 12/23/2024 Assessment & Plan (12/09/2024 12:41 PM CDT): [...] -Will complete 3 day course of abx Encounters Date Type Department Care Team Description 12/22/2024 Telephone [facility] - Cardiology [address], [address] [address] Bonnie Carrion, RN Follow-up 12/21/2024 Telephone [facility] Cardiology [address], [address] [address] Fermin Chappell MD Question 12/20/2024 Telephone [facility] - Cardiology [address], [address] [address] Bonnie Carrion, RN Loop Recorder 12/20/2024 Travel 12/20/2024 Orders Only [facility] - Cardiology [address] [facility], [address] [phone] Pj Boles MD Acute ischemic left MCA stroke (HCC) ; Status post placement of implantable loop recorder 12/04/2024 7:11 AM CDT - 12/09/2024 9:14 AM CDT Hospital Encounter SL 5N ACUTE [address] [place] [address] Yeyo Theodore II, Braulio Baez MD Albrecht, Ryan, DO Neurocritical Care Discharge Disposition: Rehab:Inpatient 12/04/2024 Travel 09/28/2024 1:10 AM CDT Clinical Support [facility] - Cardiology [address] [facility], [address] [phone] Acute ischemic left MCA stroke (HCC) ; [...] place to sleep or slept in a correction (including now)? No 09/27/2023 AUDIT-C Answer Date [...] and heating? Patient unable to answer 12/04/2024 [facility] - Occupational Stress Questionnaire Answer Date Recorded [...] any time in the past 12 m [facility], were you homeless or living in a correction (including now)? Patient unable to answer 12/04/2024 [...] Care Team (Late st Contact Info) Description 01/10/2025 2:00 PM MEDICAL IMAGING TECHNOLOGIST Office Visit [facility] - Neurology [address] [facility] [place] [address] Ashley Szymanski, BILLET WORKER-JUNIOR BOOKKEEPER [address] [place] [address] 01/11/2025 1:00 AM MEDICAL IMAGING TECHNOLOGIST Clinical Support [facility] - Cardiology [address] [place] [phone] 02/16/2025 1:00 AM MEDICAL IMAGING TECHNOLOGIST Clinical Support [facility] Cardiology [address] [place] [phone] 03/22/2025 1:00 AM MEDICAL IMAGING TECHNOLOGIST Clinical Support [facility]iology [address] [place] [phone] Health Maintenance Due Date Last Done Comments [...] this topic Medical Devices Implanted Type Area Mobile Developer Device Identifier Shelf Expiration Date Model / Serial / Lot Sys Crd Mntr Rvl Linq Ii - [id number] Implanted:Qty: 1 on 09/29/2023 by Kathy Richmond MD at [facility] [id number] 02/09/2025 LNQ22 SYS / [id number] / [id number] 3 Description:Loop Implant R-wave: 0.45 Procedures Procedure Name Priority Date/Time Associated Diagnosis Comments PROC LOOP DEVICE CHECK (REMOTE) Routine 12/20/2024 9:56 AM CDT Acute ischemic left MCA stroke (HCC) Status post placement of implantable loop recorder CARDIAC PROCEDURE ORDER 12/20/2024 PHOSPHORUS BLOOD Routine 12/09/2024 3:05 AM CDT [...] Recently Relevant to Health Maintenance Results * Loop Device Check (Remote) (12/20/2024 9:56 AM CDT) Pj Boles MD PROCEDURE/MINOR SURGICAL ORDERAB LES Final Result * CARDIAC PROCEDURE ORDER (12/20/2024) Narrative 12/20/2024 Ordered by an unspecified provider. us Scanned Document CARDIAC SERVICES ORDERABLES Fin al Result * (ABNORMAL) CBC W AUTO DIFFERENTIAL (12/09/2024 3:05 AM CDT) Only the most recent of6 resultswithin the time period is included. WBC 6.0 4.0 - 10.7 x10E9/L 12/09/2024 3:45 AM [facility] RBC Count 3.71(L) 3.90 - 5.20 x10E12/L 12/09/2024 3:45 AM [facility] Hemoglobin 11.3(L) 11.9 - 15.8 g/dL 12/09/2024 3:45 AM [facility] Hematocrit 33.3(L) 34.8 - 46.1 % 12/09/2024 3:45 AM [facility] MCV 89.8 80.0 - 98.0 fL 12/09/2024 3:45 AM [facility] MCH 30.5 26.7 - 33.6 pg 12/09/2024 3:45 AM T [facility] MCHC 33.9 31.7 - 36.3 g/dL 12/09/2024 3:45 AM [facility] RDW-CV 13.2 11.3 - 14.8 % 12/09/2024 3:45 AM [facility] Platelet Count 205 150 - 420 x10E9/L 12/09/2024 3:45 AM [facility] MPV 10.4 7.8 - 11.4 fL 12/09/2024 3:45 AM [facility] Neutrophil % 53.9 41.0 - 74.0 % 12/09/2024 3:45 AM [facility] Lymphocyte % 22.2 17.0 - 47.0 % 12/09/2024 3:45 AM [facility] Monocyte % 15.7(H) 3.0 - 11.0 % 12/09/2024 3:45 AM [facility] Eosinophil % 6.7 0.0 - 7.0 % 12/09/2024 3:45 AM [facility] Basophil % 1.0 0.0 - 1.6 % 12/09/2024 3:45 AM [facility] Immature Granulocytes % 0.5 0.0 - 1.0 % 12/09/2024 3:45 AM [facility] Neutrophil Absolute 3.22 1.60 - 7.50 x10E9/L 12/09/2024 3:45 AM [facility] Lymphocyte Absolute 1.33 1.00 - 4.40 x10E9/L 12/09/2024 3:45 AM [facility] Monocyte Absolute 0.94 0.15 - 1.00 x10E9/L 12/09/2024 3:45 AM [facility] Eosinophil Absolute 0.40 0.00 - 0.60 x10E9/L 12/09/2024 3:45 AM [facility] Basophil Absolute 0.06 0.00 - 0.13 x10E9/L 12/09/2024 3:45 AM [facility] Blood BLOOD SPECIMEN / Unknown Lab Venipuncture / Unknown 12/09/2024 3:05 AM T 12/09/2024 3:29 AM CDT us Yeyo Paris Theodore II, DO LAB - HEMATOLOGY ORDER ETHAN Final Result [facility] [address] [place] [address], [facility] [phone] * (ABNORMAL) BASIC METABOLIC PANEL (CALCIUM TOTAL) (12/09/2024 3:05 AM CDT) Only the most recent of5 resultswithin the time period is included. BUN 25 7 - 26 mg/dL 12/09/2024 4:47 AM [facility] Creatinine 1.05(H) 0.56 - 0.96 mg/dL 12/09/2024 4:47 AM [facility] Sodium 138 136 - 145 mmol/L 12/09/2024 4:47 AM [facility] Potassium 3.4(L) 3.5 - 4.5 mmol/L 12/09/2024 4:47 AM [facility] Chloride 104 98 - 107 mmol/L 12/09/2024 4:47 AM [facility] CO2 23 22 - 29 mmol/L 12/09/2024 4:47 AM [facility] Glucose 85 70 - 99 mg/dL 12/09/2024 4:47 AM [facility] Calcium 9.0 8.4 - 10.2 mg/dL 12/09/2024 4:47 AM [facility] Anion Gap 11 6 - 16 12/09/2024 4:47 AM [facility] BUN/Creatinine Ratio 24(H) 7 - 23 12/09/2024 4:47 AM [facility] Osmolality Calculated 290 275 - 295 mOsm/kg 12/09/2024 4:47 AM [facility] eGFR by CKD-EPI 55(L) >=90 mL/min/1.7 3 m2 12/09/2024 4:47 AM [facility] Comment:Estimated Glomerular Filtration Rate (eGFR) calculated using the CKD-EPI Creatinine Equation (2020), per the National Kidney Foundation and [place] Society of Nephrology recommendations. Blood BLOOD SPECIMEN / Unknown Lab Venipuncture / Unknown 12/09/2024 3:05 AM CDT 12/09/2024 3:29 AM CDT Yeyo Theodore II, DO LAB - CHEMISTRY ORDERA BLES Final Result [address] [address], [place] [phone] * PHOSPHORUS BLOOD (12/09/2024 3:05 AM CDT) Only the most recent of5 resultswithin the time period is included. Phosphorus 3.9 2.9 - 5.1 mg/dL 12/09/2024 4:47 AM CDT [facility] Blood BLOOD SPECIMEN / Unknown Lab Venipuncture / Unknown 12/09/2024 3:05 AM CDT 12/09/2024 3:29 AM CDT Yeyo Theodore II, DO LAB - CHEMISTRY ORDERA BLES Final Result Performing Organization Address City/[facility]/ZIP Co de Phone Number [address] [address], [place] [phone] * MAGNESIUM BLOOD (12/09/2024 3:05 AM CDT) Only the most recent of6 resultswithin the time period is included. Magnesium 2.0 1.6 - 2.6 mg/dL 12/09/2024 4:47 AM CDT [facility] Blood BLOOD SPECIMEN / Unknown Lab Venipuncture / Unknown 12/09/2024 3:05 AM CDT 12/09/2024 3:29 AM CDT Yeyo Theodore II, DO LAB - CHEMISTRY ORDERA BLES Final Result [address] [address], [place] [phone] * (ABNORMAL) GLUCOSE - POINT OF CARE (12/08/2024 12:02 PM CDT) Only the most recent of2 resultswithin the time period is included. Glucose WB/POC 112(H) 70 - 99 mg/dL 12/08/2024 12:03 PM [facility] Specimen Type Arterial/C apillary 12/08/2024 12:03 PM [facility] Blood BLOOD SPECIMEN / Unknown 12/08/2024 12:02 PM CDT 12/08/2024 12:03 PM CDT Josh Sherman DO LAB - POINT OF CARE ORDERABLES Final Result [facility] [address] [place] [address], [facility] [phone] * (ABNORMAL) BLOOD GASES ART + COOX PANEL (12/05/2024 8:16 AM CDT) pH Arterial 7.43 7.35 - 7.45 pH 12/05/2024 8:41 AM [facility] pO2 Arterial 79(L) 80 - 100 mmHg 12/05/2024 8:41 AM [facility] pCO2 Arterial 37 35 - 45 mmHg 8:41 AM [facility] HCO3 Arterial 24.6 20.0 - 30.0 mmol/L 12/05/2024 8:41 AM [facility] BE Arterial 0.4 -2.0 - 2.0 mmol/L 12/05/2024 8:41 AM [facility] Oxyhemoglobin Arterial 96.0 % 12/05/2024 8:41 AM [facility] Dexoyhemoglobin (HHB) % 2.0 % 12/05/2024 8:41 AM [facility] Methemoglobin <0.8 0.0 - 2.0 % 12/05/2024 8:41 AM [facility] Carboxyhemoglobin 1.6 0.0 - 2.0 % 2024 8:41 AM [facility] O2 Content Arterial 15.6 Interpret within clinical context ml/dL 12/05/2024 8:41 AM [facility] Hemoglobin by COOX 11.5(L) 12.0 - 15.6 g/dL 12/05/2024 8:41 AM CDT [facility] O2 Saturation Arterial 98 90 - 100 % 12/05/2024 8:41 AM CDT [facility] FI O2 Arterial 40.0 % 12/05/2024 8:41 AM CDT [facility] Blood, arterial ARTERIAL BLOOD SPECIMEN / Unknown Arterial Puncture / Unknown 12/05/2024 8:16 AM CDT 12/05/2024 8:38 AM CDT Narrative [facility] - 12/05/2024 8:41 AM CDT Carboxyhemoglobin Normal Concentration: Non-smokers: 0-2%; Smokers: 0-9%; Toxic: >20% us Braulio Martell MD LAB - BLOOD GASES ORDERABLES Fin al Result [facility] [address] [place] [phone], [facility] [phone] * MRI Brain Wo Contrast (12/04/2024 11:07 [...] infarction. > Dictated by Tavon Pettit MD (vice president medical affairs). > Dictated by Assortment Planner I, Mansi Hart MD have personally reviewed and interpreted this examination/study. > Interpreting Provider: Mansi Hart MD on 12/05/2024 1:00 PM Narrative 12/05/2024 1:00 PM CDT PROCEDURE: MRI BRAIN WO CONTRAST, DATE/TIME OF EXAM: 12/04/2024 11:07 PM, LOCATION [facility] INDICATION: G40.901: Status epilepticus (HCC) ADDITIONAL CLINICAL [...] CONTRAST, DATE/TIME OF EXAM: 12/04/2024 11:07PM, LOCATION [facility] INDICATION: G40.901: Status epilepticus (HCC) ADDITIONAL CLINICAL [...] infarction. > Dictated by Tavon Pettit MD (vice president medical affairs). > Dictated by Assortment Planner I, Mansi Hart MD have personally reviewed [...] Yazmin Adams MD on 12/04/2024 9:10 PM Preethi Jeff DO DIAGNOSTIC IMAGING ORDERABLES Fi nal Result * CULTURE SPUTUM+GRAM STAIN (12/04/2024 1:48 PM CDT) Culture Rare normal oropharyngeal chao NARDA 12/07/2024 2:24 PM CDT [facility] MICROBIOLOGY Gram Stain >= 25 per low power field Polymorphonuclear cells 12/07/2024 2:24 PM CDT [facility] MICROBIOLOGY Gram Stain <10 per low power field Squamous epithelial cells 12/07/2024 2:24 PM CDT [facility] MICROBIOLOGY Gram Stain No organisms seen 025 2:24 PM CDT [facility] MICROBIOLOGY Microbiology SPUTUM / Unknown Collection / Unknown 12/04/2024 1:48 PM CDT 12/04/2024 2:16 PM CDT Braulio Martell MD LAB - MICROBIOLOGY ORDERABLES Fi nal Result [facility] MICRO[facility] [address] [place] [address], [facility] [phone] * MRSA PCR (12/04/2024 1:48 PM CDT) MRSA DNA by PCR Not detected Not detected 12/04/2024 9:33 PM CDT [facility] MICROBIOLOGY Microbiology SPECIMEN FROM NASAL FOSSAE / Unknown Collection / Unknown 12/04/2024 1:48 PM CDT 12/04/2024 2:16 PM CDT Narrative [facility]CRO[facility] - 12/04/2024 9:33 PM CDT Methicillin-resistant Staphylococcus aureus (MRSA) DNA is not detected (presumed not colonized with MRSA). Braulio Martell MD LAB - MICROBIOLOGY ORDERABLES Fi nal Result [facility] MICRO[facility] [address] [place] [address], [facility] [phone] * CT Chest Wo Contrast (12/04/2024 12:29 [...] 3.Cholelithiasis. > Dictated by Ciaran Wheeler MD (vice president medical affairs). > Dictated by Assortment Planner I, Clair Key have personally reviewed and interpreted this examination/study. > Interpreting Provider: Clair Key on 12/04/2024 2:14 PM Narrative 12/04/2024 2:14 PM CDT PROCEDURE: CT CHEST WO CONTRAST, DATE/TIME OF EXAM: 12/04/2024 12:29 PM, LOCATION [facility] INDICATION: G40.901: Status epilepticus (HCC) ADDITIONAL CLINICAL [...] CONTRAST, DATE/TIME OF EXAM: 12/04/2024 12:29PM, LOCATION [facility] INDICATION: G40.901: Status epilepticus (HCC) ADDITIONAL CLINICAL [...] 3.Cholelithiasis. > Dictated by Ciaran Wheeler MD (vice president medical affairs). > Dictated by Assortment Planner I, Clair Key have personally reviewed and interpreted this examination/study. > Interpreting Provider: Clair Key on 12/04/2024 2:14 PM [address]io Martell MD CT ORDERABLES Final Result * (ABNORMAL) URINALYSIS REFLEX TO MICROSCOPIC NO CULTURE (12/04/2024 12:02 PM CDT) Color UA Yellow Yellow, Straw 12/04/2024 12:44 PM CDT [facility] Clarity UA Turbid(A) Clear 12/04/2024 12:44 PM CDT [facility] Glucose UA Normal Normal 12/04/2024 12:44 PM [facility] Bilirubin UA Negative Negative 12/04/2024 12:44 PM [facility] Ketone UA Negative Negative 12/04/2024 12:44 PM [facility] Specific Forbes UA 1.020 1.005 - 1.030 12/04/2024 12:44 PM [facility] Blood UA Negative Negative 12/04/2024 12:44 PM [facility] pH UA 5.5 5.0 - 8.0 12/04/2024 12:44 PM [facility] Protein UA Negative Negative 12/04/2024 12:44 PM [facility] Urobilinogen UA Normal Normal mg/dL 12/04/2024 12:44 PM [facility] Nitrite UA Negative Negative 12/04/2024 12:44 PM [facility] Leukocyte Esterase UA 500 RONAN/uL(A) Negative 12/04/2024 12:44 PM [facility] RBC UA 6-10(A) 0 - 5 # /hpf 12/04/2024 12:44 PM [facility] WBC UA 21-50(A) 0 - 5 # /hpf 12/04/2024 12:44 PM [facility] Bacteria UA Trace(A) None Seen 12/04/2024 12:44 PM [facility] Squamous Epithelial Cells 3-5 0 - 5 /hpf 12/04/2024 12:44 PM [facility] Mucus UA 1+ /LPF 12/04/2024 12:44 PM [facility] Urine URINE SPECIMEN OBTAINED BY CLEAN CATCH PROCEDURE / Unknown Collection / Unknown 12/04/2024 12:02 PM CDT 12/04/2024 12:05 PM T us Yeyo Theodore II, DO LAB - URINALYSIS ORDER ETHAN Final Result [facility] [address] [place] [address], [place] [phone] * XR Chest 1Vw Portable (12/04/2024 10:49 AM CDT) Anatomical Region Laterality Modality Chest Digital Radiogra phy 12/04/2024 4:16 PM CDT Narrative 12/05/2024 9:13 AM CDT PROCEDURE: XR CHEST 1VW PORTABLE, DATE/TIME OF EXAM: 12/04/2024 10:49 AM, LOCATION [facility] INDICATION: G40.901: Status epilepticus (HCC) ADDITIONAL CLINICAL [...] identified. Report dictated by Jairo Delatorre MD, (Assortment Planner). > Dictated by Assortment Planner I, Gudelia Benítez MD have personally reviewed and interpreted this examination/study. > Interpreting Provider: Gudelia Benítez MD on 12/05/2024 9:13 AM Procedure Note Gudelia Benítez MD - 12/05/2024 PROCEDURE: XR CHEST 1VW PORTABLE, DATE/TIME OF EXAM: 12/04/2024 10:49AM, LOCATION [facility] INDICATION: G40.901: Status epilepticus (HCC) ADDITIONAL CLINICAL [...] identified. Report dictated by Jairo Delatorre MD, (Assortment Planner). > Dictated by Assortment Planner I, Gudelia Benítez MD have personally reviewed and interpreted this examination/study. > Interpreting Provider: Gudelia Benítez MD on 12/05/2024 9:13 AM Yeyo Theodore II, DO DIAGNOSTIC IMAGING ORD ERABLES Final Result * TSH REFLEX FREE T4 (12/04/2024 9:51 AM CDT) TSH 2.681 0.350 - 4.940 uIU/mL 12/04/2024 11:12 AM CDT [facility] Blood BLOOD SPECIMEN / Unknown Venipuncture / Unknown 12/04/2024 9:51 AM CDT 12/04/2024 10:20 AM CDT Yeyo Theodore II, DO LAB - CHEMISTRY ORDERA BLES Final Result [facility] [address] [place] [address], [facility] [phone] * HEMOGLOBIN A1C (12/04/2024 9:51 AM CDT) Hemoglobin A1c 5.3 <=5.6 % 12/04/2024 1:57 PM CDT [facility] Estimated Average Glucose 105 mg/dL 12/04/2024 1:57 PM CDT [facility] Comment: HbA1c Interpretation: Normal : < 5.7% Pre-diabetes: 5.7-6.4% Diabetes: Equal to or greater than 6.5% Test results diagnostic of diabetes should be repeated for confirmation. Treatment target values recommended by ADA and other clinical organizations should be used to evaluate metabolic control in patients. Reference: [place] Diabetes Association, Standards of Care in Diabetes -2020 In patients 70 years and older consider HbA1c target range of 7.0-7.5% (Reference: Bayron Joseph et al. JAMDA. 2012) The Sebia assay for the measurement of HbA1c is a National Glycohemoglobin Standardization Program (NGSP) certified method. Blood BLOOD SPECIMEN / Unknown Venipuncture / Unknown 12/04/2024 9:51 AM CDT 12/04/2024 10:18 AM CDT us Yeyo Theodore II, DO LAB - CHEMISTRY ORDERA BLES Final Result [address] [address], [facility] [phone] * (ABNORMAL) RENAL FUNCTION PANEL (12/04/2024 9:51 AM CDT) BUN 13 7 - 26 mg/dL 12/04/2024 10:58 AM [facility] Creatinine 0.91 0.56 - 0.96 mg/dL 12/04/2024 10:58 AM [facility] Sodium 140 136 - 145 mmol/L 12/04/2024 10:58 AM [facility] Potassium 2.8(L) 3.5 - 4.5 mmol/L 12/04/2024 10:58 AM [facility] Chloride 110(H) 98 - 107 mmol/L 12/04/2024 10:58 AM [facility] CO2 23 22 - 29 mmol/L 12/04/2024 10:58 AM [facility] Glucose 90 70 - 99 mg/dL 12/04/2024 10:58 AM [facility] Albumin 2.9(L) 3.4 - 5.0 g/dL 12/04/2024 10:58 AM [facility] Calcium 7.7(L) 8.4 - 10.2 mg/dL 12/04/2024 10:58 AM [facility] Phosphorus 2.9 2.9 - 5.1 mg/dL 12/04/2024 10:58 AM [facility] Anion Gap 7 6 - 16 12/04/2024 10:58 AM [facility] BUN/Creatinine Ratio 14 7 - 23 12/04/2024 10:58 AM [facility] Osmolality Calculated 290 275 - 295 mOsm/kg 12/04/2024 10:58 AM CDT [facility] eGFR by CKD-EPI 66(L) >=90 mL/min/1.7 3 m2 12/04/2024 10:58 AM CDT [facility] Comment:Estimated Glomerular Filtration Rate (eGFR) calculated using the CKD-EPI Creatinine Equation (2020), per the National Kidney Foundation and [place] Society of Nephrology recommendations. Blood BLOOD SPECIMEN / Unknown Venipuncture / Unknown 12/04/2024 9:51 AM CDT 12/04/2024 10:20 AM CDT us Yeyo Theodore II, DO LAB - CHEMISTRY ORDERA BLES Final Result [facility] [address] [place] [address], [facility] [phone] * ID ILR DEVICE INTERROGAT REMOTE (2024 [...] any further questions. Sincerely, Braulio Saxena 2024 Braulio Saxena MD PROCEDURE/MINOR SURGICAL ORDERAB LES Final Result * LIPID PROFILE (09/25/2023 6:14 AM CDT) Cholesterol Total 120 <200 mg/dL 09/25/2023 6:53 AM CDT [facility] HDL 45 >40 mg/dL 09/25/2023 6:53 AM CDT [facility] Comment: ATP III Classification of HDL Cholesterol: <40 mg/dL: Considered a major risk factor. >60 mg/dL: Considered a negative risk factor. LDL Calculated 62 <100 mg/dL 09/25/2023 6:53 AM CDT [facility] Comment: ATP III Classification of LDL Cholesterol: <100 mg/dL: Optimal 100 - 129 mg/dL: Near Optimal/Above Optimal 130 - 159 mg/dL: Borderline High 160 - 189 mg/dL: High >190 mg/dL: Very High Triglycerides 67 <150 mg/dL 09/25/2023 6:53 AM CDT [facility] Comment: ATP III Classification of Triglycerides: <150 mg/dL: Normal 150 - 199 mg/dL: Borderline High 200 - 400 mg/dL: High >500 mg/dL: Very High Blood BLOOD SPECIMEN / Unknown Venipuncture / Unknown 09/25/2023 6:14 AM CDT 09/25/2023 6:21 AM CDT Kyle Menendez DO LAB - CHEMISTRY ORDERABLES F inal Result [facility] [address] [place] [id number], [facility] [phone] from Last 3 Months or Most Recently Relevant to Health Maintenance Insurance [employer] MEDICARE ADV Advance Directives Documents on File Type Date Recorded Patient Historical Records Administrator Expl anation Adv Directive/Living Will/POA 12/07/2024 10:58 AM * Full Code (Latest Code Status on File) Date Activated Date Inactivated Comments 12/04/2024 8:37 AM 12/09/2024 10:24 AM * Full Code Date Activated Date Inactivated Comments 09/24/2023 8:34 PM 09/30/2023 4:13 PM Healthcare Agents on File Name Relationship Healthcare Agent Relationshi p Communication Shani Smith Power of Airframe Design Engineer (POA) Care Teams Safety Deposit Supervisor Relationship Specialty Start Date End Date Mono Felipe MD [facility] [place] [address] PCP - General Family Medicine 11/10/23
--- OUTSIDE RECORDS SUMMARY | 2024-12-28 14:53 | XMS_ITS | Clinical Summary ---
Author Organization [facility] Address [address] [facility] [place] [address] Care Team Providers Care Tinner Automatic Name Role Phone Mono Felipe MD Primary Care Provider Fermin Chappell MD Unavailable [phone] Allergies No known active allergies Medications allopurinol [...] Take 81 mg by mouth. 09/30/2023 Active Social History Tobacco Use Types Packs/Day [...] st Contact Info) Description 02/06/2025 10:30 AM GENERATOR REBUILDER Office Visit [facility] - Cardiology [facility] [address] [place] [address] Fermin Chappell MD [address] [address] Health Maintenance Due Date Last Done Comments DEXA Bone Density 1950 Hepatitis C Virus (HCV) Screening 1950 TdaP Immunization 1950 Cologuard 1994 Colonoscopy 1994 Colorectal Cancer Screening 1994 Immunochemical Fecal Occult Blood 1994 Zoster Immunization (1 of 2) 11/13/1999 Medicare Initial AWV [id number] 02/23/2024 Influenza Immunization (#1) 2024 11/0 06/2023, 12/03/2022, 01/23/2022, Additional history exists SARS-COV-2 Immunization (2024- season) 2024 12/03/2022, 03/05/2022, 05/29/2021, Additional history [...] topic Insurance MEDICARE C [employer] Care Teams Tinner Automatic Relationship Specialty Start Date End Date Mono Felipe MD [address] [facility] [address] [place], [place] [id number] PCP - General Family Medicine 08/17/24 Fermin Chapp[address] MD [address] [facility] [address] [place] [address] Consulting Physician Cardiology 08/18/24
== END 2024-12-27 15:20 | disposition home or self-care (01) ==
LOC: ANHGOSHLAB 15:20
PROVIDERS: PCP Family Medicine; Visit Provider Family Medicine
DX: I10 Essential (primary) hypertension (principal)
CPT/HCPCS: 36415; 80053

== ENCOUNTER 2025-01-19 13:08 | Outpatient (CLI) | payer MEDICARE, SELFPAY ==
--- OUTSIDE RECORDS SUMMARY | 2025-01-19 13:11 | XMS_ITS | Clinical Summary ---
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 90 Tablet 2 4 2:25 PM NUCLEAR PHYSICIAN 09/24/19 23 Active carvediloL (COREG) 25 mg tablet Take 0.5 Tablets (12.5 mg) by mouth every 12 hours with a meal/food. 90 Tablet 1 4 2:25 PM NUCLEAR PHYSICIAN 12/22/19 23 Active levothyroxine 50 mcg tablet Take 1 Tablet (50 mcg) by mouth daily. 90 Tablet 1 4 2:25 PM NUCLEAR PHYSICIAN 12/22/19 23 Active ezetimibe-simv astatin (VYTORIN) 10-40 mg tablet Take 1 Tablet by mouth daily. 30 Tablet 4 2:25 PM NUCLEAR PHYSICIAN 02/12/20 23 Active omeprazole (PriLOSEC) 40 mg [...] daily. 90 Tablet 1 4 1:00 PM NUCLEAR PHYSICIAN 07/23/19 24 Active aspirin (LEILA CHEWABLE) 81 [...] 5 6:32 PM CDT 04/11/19 25 Active cholecalcifero l, Vitamin D3, 50 mcg (2,000 unit) Tablet Take 1 Tablet (2,000 Units) by mouth daily. 90 Tablet 3 5 12:04 PM NUCLEAR PHYSICIAN 05/23/19 25 Active omeprazole (PriLOSEC) 40 mg [...] Tablet 1 5 2:03 PM CDT 11/28/19 25 Active allopurinoL (ZYLOPRIM) 300 mg tablet Take 1 Tablet (300 mg) by mouth daily. 30 Tablet 5 2:03 PM CDT 12/16/19 25 Active atorvastatin (LIPITOR) 40 mg tablet Take 1 Tablet (40 mg) by mouth daily. 30 Tablet 12/16/19 25 Active oxyBUTYnin (DITROPAN) 5 mg tablet Take 1 Tablet (5 mg) by mouth 3 times daily. 90 Tablet 5 2:03 PM CDT 12/16/19 25 Active levothyroxine 50 mcg tablet Take 1 Tablet (50 mcg) by mouth daily. 30 Tablet 12/16/19 25 Active escitalopram oxalate (LEXAPRO) 5 mg tablet Take 0.5 Tablets (2.5 mg) by mouth daily. 15 Tablet 5 2:03 PM CDT 12/16/19 25 Active carvediloL (COREG) 6.25 mg tablet Take 1 Tablet (6.25 mg) by mouth every 12 hours WITH A MEAL/FOOD. 180 Tablet 1 5 2:33 PM NUCLEAR PHYSICIAN 12/28/19 25 Active rivaroxaban (Xarelto) 20 mg Tablet Take 1 Tablet (20 mg) by mouth daily with supper. 90 Tablet 5 2:33 PM NUCLEAR PHYSICIAN 12/28/19 25 Active amLODIPine (NORVASC) 10 mg tablet Take 1 Tablet (10 mg) by mouth daily. 90 Tablet 1 01/03/20 25 Active olmesartan (BENICAR) 40 mg tablet Take 1 Tablet (40 mg) by mouth daily. 90 Tablet 1 5 12:04 PM NUCLEAR PHYSICIAN 01/03/20 25 Active levETIRAcetam (KEPPRA) 1,000 mg tablet Take 1 Tablet (1,000 mg) by mouth 2 times daily. 60 Tablet 5 3:07 PM NUCLEAR PHYSICIAN 01/11/20 25 Active levETIRAcetam (KEPPRA) 1,000 mg tablet Take 1 (one) tablet by mouth 2 times daily 60 Tablet 4 01/12/20 25 Active carvediloL (COREG) 12.5 mg tablet Take 1 tablet (12.5 mg) by mouth every 12 hours; must administer with a meal/food 180 Tablet 2 5 6:58 PM CDT 12/28/19 24 025 Discontinue d(Dose/form adjustment) olmesartan-hyd roCHLOROthiazi de (BENICAR-HCT) 40-25 mg tablet Take 1 Tablet by mouth daily. 90 Tablet 1 5 12:43 PM CDT 05/20/19 25 025 Discontinue d(Reorder) amLODIPine (NORVASC) 10 mg tablet Take 1 Tablet (10 mg) by mouth daily. 30 Tablet 12/16/19 25 025 Discontinue d(Told by provider to stop) levETIRAcetam (KEPPRA) 1,000 mg tablet Take 1 Tablet (1,000 mg) by mouth 2 times daily. 60 Tablet 5 2:03 PM CDT 12/16/19 25 025 Discontinue d(Reorder) olmesartan-hyd roCHLOROthiazi de (BENICAR-HCT) 40-25 mg tablet Take 1 Tablet by mouth daily. 90 Tablet 1 12/29/19 25 025 Discontinue d(Other) Encounters Date Type Department Care Team Description [...]
--- OUTSIDE RECORDS SUMMARY | 2025-01-19 13:11 | XMS_ITS | Clinical Summary ---
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
--- OUTSIDE RECORDS SUMMARY | 2025-01-19 13:11 | XMS_ITS | Clinical Summary ---
Author Organization [facility] [employer] Address [address] [place] [address] Care Team Providers Care Sanding Supervisor Name Role Phone Mono Felipe MD Primary Care Provider Source Comments [facility] [employer],non-owned Affiliates and Associated Physician Practices is amultiple site organization consisting of ambulatory clinics and hospital sitesin [place], [place], [place] and [place]. This disclosure is being madepursuant to the Care Everywhere program and may not contain all information available regarding this patient. Last updated 17.[facility] [employer] Allergies No known active allergies Medications * [...] TABLET BY MOUTH ONCE DAILY 60 tablet 09/30/19 24 Active atorvastatin (Lipitor) 40 MG tablet TAKE ONE TABLET BY MOUTH AT BEDTIME 60 tablet 09/30/19 24 Active potassium chloride ER (Klor-Con M) 10 MEQ tablet Take 1 (one) tablet by mouth once daily Active acetaminophen (Tylenol) 325 MG tablet Take 2 (two) tablets by mouth every 6 hours as needed Maximum allowable Acetaminophen amount = 4 Grams (4000 mg) / 24 hours. 12/09/19 25 Active polyethylene glycol 3350 (Miralax) 17 g packet Take 17 (seventeen) g by mouth once daily 12/10/19 25 Active senna (Senokot) 8.6 MG tablet Take 1 (one) tablet by mouth once daily 12/10/19 25 Active rivaroxaban (Xarelto) 20 MG tablet Take by mouth daily with food Active levETIRAcetam (Keppra) 1000 MG tabletIndicati ons:Seizure (HCC) Take 1 (one) tablet by mouth 2 times daily 60 tablet 4 01/12/20 25 Active levETIRAcetam (Keppra) 1000 MG tablet Take 1 (one) tablet by mouth 2 times daily 12/09/19 25 025 Discontin ued(Reord er) Active Problems Problem Noted Date Diagnosed Date Anxiety 01/10/2025 Arm weakness 01/10/2025 Atrial fibrillation 01/10/2025 Chronic venous insufficiency 01/10/2025 Debilitated 01/10/2025 Dehydration 01/10/2025 Depression 01/10/2025 Diabetes mellitus with hyperglycemia 01/10/2025 Eczema 01/10/2025 Encounter for screening mamm ogram for malignant neoplasm of breast 01/10/2025 Epicondylitis, lateral, left 01/10/2025 Expressive aphasia 01/10/2025 Gait abnormality 01/10/2025 Heart failure, unspecified 01/10/2025 Heart murmur 01/10/2025 History of cataract surgery 01/10/2025 Hypertensive heart and chron ic kidney disease without heart failure, with stage 1 through stage 4 chronic kidney disease, or unspecified chronic kidney disease 01/10/2025 Hypertensive heart disease without heart failure 01/10/2025 Hypokalemia 01/10/2025 Laryngopharyngeal reflux 01/10/2025 Lymphedema of both lower extremities 01/10/2025 Metabolic syndrome 01/10/2025 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 01/10/2025 Obesity, Class III, BMI 40-49.9 (morbid obesity) 01/10/2025 Other specified disorders of bone density and structure, other site 01/10/2025 Patient had no falls in past year 01/10/2025 Prediabetes 01/10/2025 Respiratory failure 01/10/2025 Right hemiparesis 01/10/2025 Sacral wound 01/10/2025 Seizure 01/10/2025 Sleep apnea 01/10/2025 Stage 3 chronic kidney disease 01/10/2025 Vitamin D deficiency, unspecified 01/10/2025 History of ischemic left MCA stroke 12/06/2024 [...] Encounters Date Type Department Care Team Description 01/10/2025 2:00 PM WIRE LATHER Office Visit [facility] - Neurology [address] [facility], [place] [address] Ashley Szymanski APRN-LOOP MACHINE OPERATOR Seizure (HCC) (Primary Dx) 01/10/2025 Travel 12/22/2024 Telephone [facility] - Cardiology [address], [address] [phone] Bonnie Carrion, CARMEN Follow-up 12/21/2024 Telephone [facility] - [facility]iology [address], [address] [phone] Fermin Chappell MD Question 12/20/2024 Telephone [facility] - Cardiology [address], [address] [address] Bonnie Carrion RN Loop Recorder 12/20/2024 Travel 12/20/2024 Orders Only [facility] - Cardiology [address], [facility] [address] [place] [address] Pj Boles MD Acute ischemic left MCA stroke (HCC) ; Status post placement of implantable loop recorder 12/04/2024 7:11 AM CDT - 12/09/2024 9:14 AM CDT Hospital Encounter [facility] [address] [place] [address] Yeyo Theodore II, DO Sun, Philip Y, MD Albrecht, Ryan, DO Neurocritical Care Discharge Disposition: Rehab:Inpatient 12/04/2024 Travel from Last 3 Months Immunizations Immunization Administration Dates Next Due INFLUENZA VACCINE, TRIV. (AF LURIA, FLUZONE TRIVALENT; 6MO+) (IIV3) 11/25/2013 COVID PFIZER BIVALENT 12Y+ 30mcg/0.3ML 03/05/2022 Covid Pfizer primary Monoval ent 12+ yr 0.3ml 05/29/2021 Covid Pfizer primary monoval ent 12+ yr 0.3mL Purple cap 12/13/2020 INFLUENZA VACCINE, HIGH-DOSE , QUADR. (FLUZONE HIGH-DOSE QUADRIVALENT; 65Y+), 0.7 ML (HD-IIV4) 12/28/2023,01/04/2019,12/08/2017,2016,11/26/2015 Pneumococcal Pcv13 Conj 11/26/2015 Social History Tobacco Use Types Packs/Day Years Used Date Smoking Tobacco: Never Smokeless Tobacco: Never PHQ-2 Answer Date Recorded Patient Health Questionnaire-2 [...] place to sleep or slept in a alf (including now)? No 09/27/2023 AUDIT-C Answer Date [...] and heating? Patient unable to answer 12/04/2024 [facility] - Occupational [...] any time in the past 12 m [facility], were you homeless or living in a alf (including now)? Patient unable to answer 12/04/2024 Comments Unknown Sex and Gender Information Value Date Recorded Sex Assigned at Not on file Legal Sex Female 6:56 PM CDT Gender Identity Not on file Sexual Orientation Not on file Last Filed Vital Signs Vital Sign Reading Time Taken Comments Blood Pressure 126/85 01/10/2025 2:00 PM WIRE LATHER Pulse 72 01/10/2025 2:00 PM WIRE LATHER Temperature 36.1 C (97 F) 01/10/2025 2:00 PM WIRE LATHER Respiratory Rate 18 12/08/2024 12:0 2 PM CDT Oxygen Saturation 97% 01/10/2025 2:00 PM WIRE LATHER Inhaled Oxygen Concentration 40% 10:26 AM CDT Weight 123.2 kg (271 lb 9.6 oz) 12/09/2024 3:36 AM CDT Height 170.2 cm (5' 7) 12/04/2024 10:2 9 AM CDT Body Mass Index 42.54 12/04/2024 10:29 AM CDT Plan of Treatment Upcoming Encounters Date Type Department Care Team (Late st Contact Info) Description 02/16/2025 1:00 AM WIRE LATHER Clinical Support [facility] - Cardiology [address] [address] 03/22/2025 1:00 AM WIRE LATHER [facility] [address] [address] 06/07/2025 11:30 AM CDT Office Visit [facility] - Neurology [address] [facility] [place] [address] Ashley Szymanski APRN-CELSO [address] [place] [address] Health Maintenance Due Date Last Done Comments BONE DENSITY TESTING 1950 COLOGUARD (AGES 45-75) - COLON CA SCREENING 1949 COLON MONITORING 1949 COLONOSCOPY - COLON CA SCREENING 1949 CT COLONOGRAPHY - COLON CA SCREENING 1950 Colorectal Cancer Screening 1950 FIT - COLON CA SCREENING 1949 FLEX SIG - COLON CA SCREENING 1950 MAMMOGRAM 1950 HEPATITIS C SCREENING 11/08/1967 DTAP/TDAP/TD VACCINES (1 - Tdap) 1968 ZOSTER VACCINE (1 of 2) 11/13/1999 PNEUMOCOCCAL VACCINE 50+ (2 of 2 - PPSV23, PCV20, or PCV21) 01/21/2016 11/26/2015 DEPRESSION SCREENING 02/23/2024 09/24/2023 DIABETES - URINE PROTEIN SCREENING 02/23/2024 MEDICARE AWV CALENDAR YEAR 2024 COVID-19 VACCINE ( season) 2024 03/05/2022, 05/29/2021, 12/13/2020, Additional history exists INFLUENZA VACCINE (#1) 2024 , 01/04/2019, 12/08/2017, Additional history exists Respiratory Syncytial Virus (RSV) Vaccine Pt: or over 60 yrs (1 - 1-dose 75+ series) 2024 DIABETES RETINOPATHY SCREENING 01/10/2025 DIABETES-FOOT EXAM WITH MONOFILAMENT 01/10/2025 DIABETES-HGB A1C 06/04/2025 12/04/2024, 09/27/2023 DIABETES-SERUM CREATININE 12/09/20252024, 12/08/2024, 12/07/2024, Additional history exists HEPATITIS B VACCINE Aged Out No longe r eligible based on patient's age to complete this topic HIB VACCINE Aged Out No longer eligi ble based on patient's age to complete this topic HPV VACCINE Aged Out No longer eligi ble based on patient's age to complete this topic MENINGOCOCCAL (Group B) VACCINE SHARED DECISION-MAKING Aged Out No longer eligible based on patient's age to complete this topic MENINGOCOCCAL GROUPS A/C/Y/W VACCINE Aged Out No longer eligible based on patient's age to complete this topic Medical Devices Implanted Type Area Department Clinician Device Identifier Shelf Expiration Date Model / Serial / Lot Sys Crd Mntr Rvl Linq Ii - [id number] Implanted:Qty: 1 on 09/29/2023 by Kathy Richmond MD at [facility] [id number] 02/09/2025 LNQ22 SYS / [id number] 3 / [id number] 3 Description:Loop Implant R-wave: 0.45 Procedures Procedure [...] TRIAL PROTOCOL Routine 12/04/2024 9:18 AM CDT AR ILR DEVICE INTERROGAT REMOTE Routine 2024 1:19 PM CDT Acute ischemic left MCA stroke (HCC) Status post placement of implantable loop recorder from Last 3 Months Results * Loop Device Check (Remote) (12/20/2024 9:56 AM CDT) us Pj Boles MD PROCEDURE/MINOR SURGICAL ORDERAB LES Final Result * CARDIAC PROCEDURE ORDER (12/20/2024) Narrative 12/20/2024 Ordered by an unspecified provider. us Scanned Document CARDIAC SERVICES ORDERABLES Fin al Result * (ABNORMAL) CBC W AUTO DIFFERENTIAL (12/09/2024 3:05 AM CDT) Only the most recent of6 resultswithin the time period is included. WBC 6.0 4.0 - 10.7 x10E9/L 12/09/2024 3:45 AM CDT [facility] RBC Count 3.71(L) 3.90 - 5.20 x10E12/L 12/09/2024 3:45 AM [facility] Hemoglobin 11.3(L) 11.9 - 15.8 g/dL 12/09/2024 3:45 AM [facility] Hematocrit 33.3(L) 34.8 - 46.1 % 12/09/2024 3:45 AM [facility] MCV 89.8 80.0 - 98.0 fL 12/09/2024 3:45 AM [facility] MCH 30.5 26.7 - 33.6 pg 12/09/2024 3:45 AM [facility] MCHC 33.9 31.7 - 36.3 g/dL 12/09/2024 3:45 AM [facility] RDW-CV 13.2 11.3 - 14.8 % 12/09/2024 3:45 AM [facility] Platelet Count 205 150 - 420 x10E9/L 12/09/2024 3:45 AM [facility] MPV 10.4 7.8 - 11.4 fL 12/09/2024 3:45 AM [facility] Neutrophil % 53.9 41.0 - 74.0 % 12/09/2024 3:45 AM [facility] Lymphocyte % 22.2 17.0 - 47.0 % 12/09/2024 3:45 AM [facility] Monocyte % 15.7(H) 3.0 - 11.0 % 12/09/2024 3:45 AM [facility] Eosinophil % 6.7 0.0 - 7.0 % 12/09/2024 3:45 AM [facility] Basophil % 1.0 0.0 - 1.6 % 12/09/2024 3:45 AM [facility] Immature Granulocytes % 0.5 0.0 - 1.0 % 12/09/2024 3:45 AM [facility] Neutrophil Absolute 3.22 1.60 - 7.50 x10E9/L 12/09/2024 3:45 AM [facility] Lymphocyte Absolute 1.33 1.00 - 4.40 x10E9/L 12/09/2024 3:45 AM [facility] Monocyte Absolute 0.94 0.15 - 1.00 x10E9/L 12/09/2024 3:45 AM [facility] Eosinophil Absolute 0.40 0.00 - 0.60 x10E9/L 12/09/2024 3:45 AM [facility] Basophil Absolute 0.06 0.00 - 0.13 x10E9/L 12/09/2024 3:45 AM [facility] Blood BLOOD SPECIMEN / Unknown Lab Venipuncture / Unknown 12/09/2024 3:05 AM CDT 12/09/2024 3:29 AM CDT us Yeyo Theodore II, DO LAB - HEMATOLOGY ORDER TEHAN Final Result [facility] [address] [place] [address], [facility] [phone] * (ABNORMAL) BASIC METABOLIC PANEL (CALCIUM TOTAL) (12/09/2024 3:05 AM CDT) Only the most recent of5 resultswithin the time period is included. BUN 25 7 - 26 mg/dL 12/09/2024 4:47 AM [facility] Creatinine 1.05(H) 0.56 - 0.96 mg/dL 12/09/2024 4:47 AM [facility] Sodium 138 136 - 145 mmol/L 12/09/2024 4:47 AM [facility] Potassium 3.4(L) 3.5 - 4.5 mmol/L 12/09/2024 4:47 AM [facility] Chloride 104 98 - 107 mmol/L 12/09/2024 4:47 AM [facility] CO2 23 22 - 29 mmol/L 12/09/2024 4:47 AM [facility] Glucose 85 70 - 99 mg/dL 12/09/2024 4:47 AM [facility] Calcium 9.0 8.4 - 10.2 mg/dL 12/09/2024 4:47 AM [facility] Anion Gap 11 6 - 16 12/09/2024 4:47 AM [facility] BUN/Creatinine Ratio 24(H) 7 - 23 12/09/2024 4:47 AM [facility] Osmolality Calculated 290 275 - 295 mOsm/kg 12/09/2024 4:47 AM [facility] eGFR by CKD-EPI 55(L) >=90 mL/min/1.7 3 m2 12/09/2024 4:47 AM [facility] Comment:Estimated Glomerular Filtration Rate (eGFR) calculated using the CKD-EPI Creatinine Equation (2020), per the National Kidney Foundation and [place] [employer] recommendations. Blood BLOOD SPECIMEN / Unknown Lab Venipuncture / Unknown 12/09/2024 3:05 AM CDT 12/09/2024 3:29 AM CDT Yeyo Theodore II, DO LAB - CHEMISTRY ORDERA BLES Final Result Performing Organization Address City/[facility]/ZIP Co de Phone Number [address] [address], [place] [phone] * PHOSPHORUS BLOOD (12/09/2024 3:05 AM CDT) Only the most recent of5 resultswithin the time period is included. Phosphorus 3.9 2.9 - 5.1 mg/dL 12/09/2024 4:47 AM T [facility] Blood BLOOD SPECIMEN / Unknown Lab Venipuncture / Unknown 12/09/2024 3:05 AM CDT 12/09/2024 3:29 AM CDT Yeyo Paris Ewelina II, DO LAB - CHEMISTRY ORDERA BLES Final Result Performing Organization Address City/[facility]/ZIP Co de Phone Number [address] [address], [place] [phone] * MAGNESIUM BLOOD (12/09/2024 3:05 AM CDT) Only the most recent of6 resultswithin the time period is included. Magnesium 2.0 1.6 - 2.6 mg/dL 12/09/2024 4:47 AM CDT [facility] Blood BLOOD SPECIMEN / Unknown Lab Venipuncture / Unknown 12/09/2024 3:05 AM CDT 12/09/2024 3:29 AM CDT Yeyo Theodore II, DO LAB - CHEMISTRY ORDERA BLES Final Result Performing Organization Address City/[facility]/ZIP Co de Phone Number [address] [address], [place] [phone] * (ABNORMAL) GLUCOSE - POINT OF CARE (12/08/2024 12:02 PM CDT) Only the most recent of2 resultswithin the time period is included. Pathologist [facility] Glucose WB/POC 112(H) 70 - 99 mg/dL 12/08/2024 12:03 PM CDT [facility] Specimen Type Arterial/C apillary 12/08/2024 12:03 PM CDT [facility] Blood BLOOD SPECIMEN / Unknown 12/08/2024 12:02 PM CDT 12/08/2024 12:03 PM CDT us Josh Sherman DO LAB - POINT OF CARE ORDERABLES Final Result Performing Organization Address City/[facility]/ZIP Co de Phone Number [address] [address], [place] [phone] * (ABNORMAL) BLOOD GASES ART + COOX PANEL (12/05/2024 8:16 AM CDT) pH Arterial 7.43 7.35 - 7.45 pH 12/05/2024 8:41 AM CDT [facility] pO2 Arterial 79(L) 80 - 100 mmHg 12/05/2024 8:41 AM CDT [facility] pCO2 Arterial 37 35 - 45 mmHg 8:41 AM CDT [facility] HCO3 Arterial 24.6 20.0 - 30.0 mmol/L 12/05/2024 8:41 AM T [facility] BE Arterial 0.4 -2.0 - 2.0 mmol/L 12/05/2024 8:41 AM [facility] Oxyhemoglobin Arterial 96.0 % 12/05/2024 8:41 AM [facility] Dexoyhemoglobin (HHB) % 2.0 % 12/05/2024 8:41 AM [facility] Methemoglobin <0.8 0.0 - 2.0 % 12/05/2024 8:41 AM [facility] Carboxyhemoglobin 1.6 0.0 - 2.0 % 2024 8:41 AM [facility] O2 Content Arterial 15.6 Interpret within clinical context ml/dL 12/05/2024 8:41 AM [facility] Hemoglobin by COOX 11.5(L) 12.0 - 15.6 g/dL 12/05/2024 8:41 AM [facility] O2 Saturation Arterial 98 90 - 100 % 12/05/2024 8:41 AM [facility] FI O2 Arterial 40.0 % 12/05/2024 8:41 AM [facility] Blood, arterial ARTERIAL BLOOD SPECIMEN / Unknown Arterial Puncture / Unknown 12/05/2024 8:16 AM CDT 12/05/2024 8:[address] [facility] - 12/05/2024 8:41 AM [facility] Carboxyhemoglobin Normal Concentration: Non-smokers: 0-2%; Smokers: 0-9%; Toxic: >20% us Braulio Martell MD LAB - BLOOD GASES ORDERABLES Fin al Result [facility] [address] [place] [address], [facility] [phone] * MRI Brain Wo Contrast (12/04/2024 11:07 [...] Dictated by Tavon Pettit MD (vice president quality assurance). > Dictated by Shoe Puller IMansi MD have personally reviewed and interpreted this examination/study. > Interpreting Provider: Mansi Hart MD on 12/05/2024 1:00 PM Narrative 12/05/2024 1:00 PM CDT PROCEDURE: MRI BRAIN WO CONTRAST, DATE/TIME OF EXAM: 12/04/2024 11:07 PM, LOCATION [facility] INDICATION: G40.901: Status epilepticus (HCC) ADDITIONAL [...] CONTRAST, DATE/TIME OF EXAM: 12/04/2024 11:07PM, LOCATION [facility] INDICATION: G40.901: Status epilepticus (HCC) ADDITIONAL [...] Dictated by Tavon Pettit MD (vice president quality assurance). > Dictated by Shoe Puller I, Mansi Hart MD have personally reviewed and interpretedthis examination/study. > Interpreting Provider: Mansi Hart MD on 12/05/2024 1:00 PM us Yeyo Theodore II, DO MR ORDERABLES Final [...] oropharyngeal chao NARDA 12/07/2024 2:24 PM CDT [facility] Gram Stain >= 25 per low power field Polymorphonuclear cells 12/07/2024 2:24 PM CDT [facility] Gram Stain <10 per low power field Squamous epithelial cells 12/07/2024 2:24 PM CDT [facility] Gram Stain No organisms seen 025 2:24 PM CDT [facility] Microbiology SPUTUM / Unknown Collection / Unknown 12/04/2024 1:48 PM CDT 12/04/2024 2:16 PM CDT Braulio Martell MD LAB - MICROBIOLOGY ORDERABLES Fi nal Result [facility] [address] [place], [place] [address], [place] [phone] * MRSA PCR (12/04/2024 1:48 PM CDT) MRSA DNA by PCR Not detected Not detected 12/04/2024 9:33 PM CDT [facility] Microbiology SPECIMEN FROM NASAL FOSSAE / Unknown Collection / Unknown 12/04/2024 1:48 PM CDT 12/04/2024 2:16 PM CDT Narrative [facility] - 12/04/2024 9:33 PM CDT Methicillin-resistant Staphylococcus aureus (MRSA) DNA is not detected (presumed not colonized with MRSA). us Braulio Martell MD LAB - MICROBIOLOGY ORDERABLES Fi nal Result [facility] [address] [place] [address], [facility] [phone] * CT Chest Wo Contrast (12/04/2024 12:29 [...] Dictated by Ciaran Wheeler MD (vice president quality assurance). > Dictated by Shoe Puller I, Clair Key have personally reviewed and interpreted this examination/study. > Interpreting Provider: Clair Key on 12/04/2024 2:14 PM Narrative 12/04/2024 2:14 PM CDT PROCEDURE: CT CHEST WO CONTRAST, DATE/TIME OF EXAM: 12/04/2024 12:29 PM, LOCATION [facility] INDICATION: G40.901: Status epilepticus (HCC) ADDITIONAL [...] CONTRAST, DATE/TIME OF EXAM: 12/04/2024 12:29PM, LOCATION [facility] INDICATION: G40.901: Status epilepticus (HCC) ADDITIONAL [...] Dictated by Ciaran Wheeler MD (vice president quality assurance). > Dictated by Shoe Puller I, Clair Key have personally reviewed and interpreted this examination/study. > Interpreting Provider: Clair Key on 12/04/2024 2:14 PM [address]io Martell MD CT ORDERABLES Final Result * (ABNORMAL) URINALYSIS REFLEX TO MICROSCOPIC NO CULTURE (12/04/2024 12:02 PM CDT) Color UA Yellow Yellow, Straw 12/04/2024 12:44 PM [facility] Clarity UA Turbid(A) Clear 12/04/2024 12:44 PM [facility] Glucose UA Normal Normal 12/04/2024 12:44 PM [facility] Bilirubin UA Negative Negative 12/04/2024 12:44 PM [facility] Ketone UA Negative Negative 12/04/2024 12:44 PM [facility] Specific Trevor UA 1.020 1.005 - 1.030 12/04/2024 12:44 PM [facility] Blood UA Negative Negative 12/04/2024 12:44 PM [facility] pH UA 5.5 5.0 - 8.0 12/04/2024 12:44 PM [facility] Protein UA Negative Negative 12/04/2024 12:44 PM [facility] Urobilinogen UA Normal Normal mg/dL 12/04/2024 12:44 PM [facility] Nitrite UA Negative Negative 12/04/2024 12:44 PM [facility] Leukocyte Esterase UA 500 RONAN/uL(A) Negative 12/04/2024 12:44 PM [facility] RBC UA 6-10(A) 0 - 5 # /hpf 12/04/2024 12:44 PM [facility] WBC UA 21-50(A) 0 - 5 # /hpf 12/04/2024 12:44 PM [facility] Bacteria UA Trace(A) None Seen 12/04/2024 12:44 PM [facility] Squamous Epithelial Cells 3-5 0 - 5 /hpf 12/04/2024 12:44 PM [facility] Mucus UA 1+ /LPF 12/04/2024 12:44 PM CDT [facility] Urine URINE SPECIMEN OBTAINED BY CLEAN CATCH PROCEDURE / Unknown Collection / Unknown 12/04/2024 12:02 PM CDT 12/04/2024 12:05 PM CDT us Yeyo Theodore II, DO LAB - URINALYSIS ORDER ETHAN Final Result [facility] [address] [place] [address], [facility] [phone] * XR Chest 1Vw Portable (12/04/2024 10:49 AM CDT) Anatomical Region Laterality Modality Chest Digital Radiogra phy 12/04/2024 4:16 PM CDT Narrative 12/05/2024 9:13 AM CDT PROCEDURE: XR CHEST 1VW PORTABLE, DATE/TIME OF EXAM: 12/04/2024 10:49 AM, LOCATION [facility] INDICATION: G40.901: Status epilepticus (HCC) ADDITIONAL [...] identified. Report dictated by Jairo Delatorre MD, (Shoe Puller). > Dictated by Shoe Puller I, Gudelia Benítez MD have personally reviewed and interpreted this examination/study. > Interpreting Provider: Gudelia Benítez MD on 12/05/2024 9:13 AM Procedure Note Gudelia Benítez MD - 12/05/2024 PROCEDURE: XR CHEST 1VW PORTABLE, DATE/TIME OF EXAM: 12/04/2024 10:49AM, LOCATION [facility] INDICATION: G40.901: Status epilepticus (HCC) ADDITIONAL [...] identified. Report dictated by Jairo Delatorre MD, (Shoe Puller). > Dictated by Shoe Puller I, Gudelia Benítez MD have personally reviewed and interpreted this examination/study. > Interpreting Provider: Gudelia Benítez MD on 12/05/2024 9:13 AM Yeyo Theodore II, DO DIAGNOSTIC IMAGING ORD ERABLES Final Result * TSH REFLEX FREE T4 (12/04/2024 9:51 AM CDT) [facility] TSH 2.681 0.350 - 4.940 uIU/mL 12/04/2024 11:12 AM CDT [facility] Blood BLOOD SPECIMEN / Unknown Venipuncture / Unknown 12/04/2024 9:51 AM CDT 12/04/2024 10:20 AM CDT us Yeyo Theodore II, DO LAB - CHEMISTRY ORDERA BLES Final Result [facility] [address] [place] [address], [place] [phone] * HEMOGLOBIN A1C (12/04/2024 9:51 AM CDT) [facility] Hemoglobin A1c 5.3 <=5.6 % 12/04/2024 1:57 PM [facility] Estimated Average Glucose 105 mg/dL 12/04/2024 1:57 PM [facility] Comment: HbA1c Interpretation: Normal : < 5.7% Pre-diabetes: 5.7-6.4% Diabetes: Equal to or greater than 6.5% Test results diagnostic of diabetes should be repeated for confirmation. Treatment target values recommended by ADA and other clinical organizations should be used to evaluate metabolic control in patients. Reference: [place] [employer], Standards of Care in Diabetes [...] LAB - CHEMISTRY ORDERA BLES Final Result [facility] [address] [place] [id number], [facility] [phone] * (ABNORMAL) RENAL FUNCTION PANEL (12/04/2024 9:51 AM CDT) [facility] BUN 13 7 - 26 mg/dL 12/04/2024 10:58 AM [facility] Creatinine 0.91 0.56 - 0.96 mg/dL 12/04/2024 10:58 AM [facility] Sodium 140 136 - 145 mmol/L 12/04/2024 10:58 AM [facility] Potassium 2.8(L) 3.5 - 4.5 mmol/L 12/04/2024 10:58 AM [facility] Chloride 110(H) 98 - 107 mmol/L 12/04/2024 10:58 AM [facility] CO2 23 22 - 29 mmol/L 12/04/2024 10:58 AM [facility] Glucose 90 70 - 99 mg/dL 12/04/2024 10:58 AM [facility] Albumin 2.9(L) 3.4 - 5.0 g/dL 12/04/2024 10:58 AM [facility] Calcium 7.7(L) 8.4 - 10.2 mg/dL 12/04/2024 10:58 AM [facility] Phosphorus 2.9 2.9 - 5.1 mg/dL 12/04/2024 10:58 AM [facility] Anion Gap 7 6 - 16 12/04/2024 10:58 AM [facility] BUN/Creatinine Ratio 14 7 - 23 12/04/2024 10:58 AM [facility] Osmolality Calculated 290 275 - 295 mOsm/kg 12/04/2024 10:58 AM [facility] eGFR by CKD-EPI 66(L) >=90 mL/min/1.7 3 m2 12/04/2024 10:58 AM [facility] Comment:Estimated Glomerular Filtration Rate (eGFR) calculated using the CKD-EPI Creatinine Equation (2020), per the National Kidney Foundation and [place] [employer] recommendations. Blood BLOOD SPECIMEN / Unknown Venipuncture / Unknown 12/04/2024 9:51 AM CDT 12/04/2024 10:20 AM CDT us Yeyo Theodore II, DO LAB - CHEMISTRY ORDERA BLES Final Result [facility] [address] [place] [address], [facility] [phone] * [place] ILR DEVICE INTERROGAT REMOTE (2024 1:19 PM [...] MD PROCEDURE/MINOR SURGICAL ORDERAB LES Final Result from Last 3 Months Insurance [employer] MEDICARE [facility]V [facility] Care Address: [place] [id number] [place] [phone] Advance Directives Documents on File Type Date Recorded Patient Certified Medical Asst Expl anation Adv Directive/Living Will/POA 12/07/2024 10:58 AM * Full Code (Latest Code Status on File) Date Activated Date Inactivated Comments 12/04/2024 8:37 AM 12/09/2024 10:24 AM * Full Code Date Activated Date Inactivated Comments 09/24/2023 8:34 PM 09/30/2023 4:13 PM Healthcare Agents on File Name Relationship Healthcare Agent Relationshi p Communication Shani Kamara Friend Power of Resistance Machine Welder Setter (POA) Care Teams Sanding Supervisor Relationship Specialty Start Date End Date Mono Felipe MD [address] [facility] [address] [place] [address] PCP - General Family Medicine 11/10/23
--- OUTSIDE RECORDS SUMMARY | 2025-01-19 13:11 | XMS_ITS | Clinical Summary ---
Author Organization [facility] Address [address] [facility] [place] [address] Care Team Providers Care Insurance Account Executive Name Role Phone Mono Felipe MD Primary Care Provider Fermin Chappell MD Unavailable [phone] Allergies No known active allergies Medications allopurinol [...] Care Team (Late st Contact Info) Description 02/20/2025 3:00 PM [facility] Office Visit [facility] - Cardiology [facility] [address] [place] [address] Fermin Chappell MD [address] [address] Health Maintenance Due Date Last Done Comments [...] topic Insurance MEDICARE C [employer] Care Teams Insurance Account Executive Relationship Specialty Start Date End Date Mono Felipe MD [address] [facility] [address] [place], [place] [id number] PCP - General Family Medicine 08/17/24 Fermin Chappell MD [address] [facility] [address] [place] [address] Consulting Physician Cardiology 08/18/24
[2025-01-20 19:20] LABS: Alanine Aminotransferase 20 U/L (6-35); Albumin Level 3.8 g/dL (3.5-5.1); Alkaline Phosphatase 76 U/L (38-126); Anion Gap 8 mmol/L (4-12); Aspartate Amino Transferase 26 U/L (14-36); Bilirubin,Total 0.4 mg/dL (0.2-1.3); Blood Urea Nitrogen 14 mg/dL (7-17); Calcium 8.8 mg/dL (8.4-10.2); Carbon Dioxide 27 mmol/L (22-30); Chloride 106 mmol/L (98-107); Estimated Glomerular Filt Rate > 60; Glucose 94 mg/dL (65-110); Potassium 3.8 mmol/L (3.4-5.0); Sodium 141 mmol/L (137-145); Total Protein 6.6 g/dL (6.3-8.2)
[2025-01-20 19:34] LABS: Thyroid Stimulating Hormone Reflex 2.330 uIU/mL (0.465-4.68)
== END 2025-01-19 13:09 | disposition home or self-care (01) ==
LOC: ANHGOSHLAB 13:09
PROVIDERS: PCP Family Medicine; Visit Provider Family Medicine
DX: E03.9 Hypothyroidism, unspecified (principal); I10 Essential (primary) hypertension
CPT/HCPCS: 36415; 80053; 84443